=== PATIENT | male | born 1960 | race Caucasian/White ===

== ENCOUNTER 2018-07-21 11:07 | Inpatient (IN) | payer MEDICARE, MEDICAID ==
[~2018-07-21] VITALS: Ht 165.1 cm; Wt 45.8 kg
[2018-07-21] VITALS (39 sets, daily range): BP systolic 58–140; BP diastolic 39–88
[~2018-07-21 11:07] MED LIST: ASPI-1158 PO; CALC667C PO; CITR473S PO; KEPP500 PO; LANTUSUD SUBCUT; MIDO5TAB PO; NEPVIT PO
[2018-07-21] MEDS ORDERED: VANCOMYCIN 1 G PREMIX 200 ML IV ONE (11:45)
[2018-07-21] MEDS ORDERED: PIPERACILLIN/TAZ 3.375G PREMIX 50 ML IV ONE (11:45)
[2018-07-21] MEDS ORDERED: SODIUM CHLORIDE 0.9% 1000ML BAG (SEPSIS BOLUS) IV ONE (11:45)
[2018-07-21 12:00] LABS: BASOPHILS % 0.1 % (0.0-2.0); EOSINOPHILS % 0.1 % (0.0-5.0); HEMATOCRIT. 38.4 % (42.0-52.0); HEMOGLOBIN. 12.7 g/dL (14.0-18.0); LYMPHOCYTES % 8.4 % (20.0-50.0); MEAN CORPUSCULAR HEMOGLOBIN 29.7 pg (28.0-32.0); MEAN CORPUSCULAR VOLUME 89.9 fL (80.0-94.0); MEAN PLATELET VOLUME 8.2 fl (7.4-10.4); MONOCYTES % 7.1 % (2.0-8.0); NEUTROPHILS % 84.3 % (40.0-76.0); PLATELET 121 x1000/uL (130-400); RED BLOOD CELL COUNT 4.27 mill/uL (4.7-6.1); RED CELL DISTRIBUTION WIDTH 13.6 % (11.6-14.6)
[2018-07-21 12:05] LABS: INR 1.2
[2018-07-21 12:16] LABS: CHLORIDE 100 mEq/L (98-107)
[2018-07-21] MEDS ORDERED: LEVETIRACETAM 500MG PREMIX 100 ML IV ONE (13:00)
[2018-07-21 13:10] LABS: BG BASE EXCESS -9.4 mmol/L (-2.0-2.0); BG CARBOXYHEMOGLOBIN 0.5 % (0.5-1.5); BG DEOXYHEMOGLOBIN 5.7 % (0.0-5.0); BG FRACTION INSPIRED OXYGEN 21; BG HCO3 ACT 17.3 mmol/L (22.0-26.0); BG METHEMOGLOBIN 0.2 % (0.0-1.5); BG OXYGEN SATURATION 94.3 % (92.0-98.5); BG OXYHEMOGLOBIN 93.6 % (94.0-97.0); BG PCO2 40.9 mmHg (35.0-45.0); BG PH 7.245 (7.350-7.450); BG SAMPLE SITE LEFT RADIAL; BG TOTAL HEMOGLOBIN 11.4 g/dL (12.0-18.0); BG VENT MODE ROOM AIR
[2018-07-21] MEDS ORDERED: DOPAMINE 400MG/250ML PREMIX 250 ML IV ONE (13:45)
[2018-07-21] MEDS ORDERED: NA PHOS,M-B/NA PHOS,DI-BA ENEMA 118ML PR PRN (14:30)
[2018-07-21] MEDS ORDERED: LORAZEPAM 2MG/ML CPJ IV PRN (14:30)
[2018-07-21] MEDS ORDERED: IPRATROPIUM/ALBUTEROL 0.5-3(2.5)MG/3ML NEB INH PRN (14:30)
[2018-07-21] MEDS ORDERED: PIPERACILLIN/TAZ 3.375G PREMIX 50 ML IV SCH (14:30)
[2018-07-21] MEDS ORDERED: MAGNESIUM/ALUMINUM HYDROXIDE/SIMETHICONE 30ML UDC PO PRN (14:30)
[2018-07-21] MEDS ORDERED: ACETAMINOPHEN 325MG TABLET PO PRN (14:30)
[2018-07-21] MEDS ORDERED: ENOXAPARIN 40MG/0.4ML SYR SUBCUT SCH (14:30)
[2018-07-21] MEDS ORDERED: HYDROMORPHONE HCL/PF 2MG/ML CPJ IV PRN (14:30)
[2018-07-21] MEDS ORDERED: HYDROCODONE/ACETAMINOPHEN 5/325MG TABLET PO PRN (14:30)
[2018-07-21] MEDS ORDERED: DOCUSATE SODIUM 100MG CAPSULE PO PRN (14:30)
[2018-07-21] MEDS ORDERED: ONDANSETRON HCL 4MG/2ML INJ IV PRN (14:30)
[2018-07-21] MEDS ORDERED: GUAIFENESIN 200MG/10ML SUGAR FREE UDC PO PRN (14:30)
[2018-07-21] MEDS ORDERED: CLONIDINE 0.1MG TABLET PO PRN (14:30)
[2018-07-21] MEDS ORDERED: DIPHENHYDRAMINE 50MG/ML VIAL IV PRN (14:30)
[2018-07-21] MEDS: IPRATROPIUM/ALBUTEROL 0.5-3(2.5)MG/3ML NEB HHN SCH ×2 (16:04→20:56)
[2018-07-21] MEDS ORDERED: CITRIC ACID/SODIUM CITRATE SOLN 30ML UDC PO SCH (17:00)
[2018-07-21] MEDS: ENOXAPARIN 30MG/0.3ML SYR SUBCUT SCH (17:38)
[2018-07-21] MEDS: MIDODRINE HCL 5MG TABLET PO SCH (17:38)
[2018-07-21] MEDS: PIPERACILLIN/TAZ 2.25G PREMIX 50 ML IV SCH ×2 (17:38→23:11)
[2018-07-21] MEDS: CALCIUM ACETATE 667MG CAPSULE PO SCH (17:41)
[2018-07-21 18:54] LABS: BG BASE EXCESS -6.2 mmol/L (-2.0-2.0); BG CARBOXYHEMOGLOBIN 0.4 % (0.5-1.5); BG DEOXYHEMOGLOBIN 6.6 % (0.0-5.0); BG FRACTION INSPIRED OXYGEN 21; BG HCO3 ACT 19.9 mmol/L (22.0-26.0); BG METHEMOGLOBIN 0.3 % (0.0-1.5); BG OXYGEN SATURATION 93.4 % (92.0-98.5); BG OXYHEMOGLOBIN 92.7 % (94.0-97.0); BG PCO2 41.9 mmHg (35.0-45.0); BG PH 7.295 (7.350-7.450); BG PO2 87.6 mmHg (75.0-100.0); BG SAMPLE SITE LEFT RADIAL; BG VENT MODE ROOM AIR
[2018-07-21] MEDS ORDERED: PHENYLEPHRINE 20 MG in DEXT 5% WATER 250 ML IV PRN (19:08)
[2018-07-22] VITALS (93 sets, daily range): BP systolic 68–141; BP diastolic 34–88
[2018-07-22] MEDS: PHENYLEPHRINE 20 MG in DEXT 5% WATER 248 ML IV PRN ×2 (02:37→21:12)
[2018-07-22 05:32] LABS: BASOPHILS % 0.3 % (0.0-2.0); EOSINOPHILS % 1.3 % (0.0-5.0); HEMOGLOBIN. 12.3 g/dL (14.0-18.0); LYMPHOCYTES % 12.5 % (20.0-50.0); MEAN CORPUSCULAR HEMOGLOBIN 29.8 pg (28.0-32.0); MEAN CORPUSCULAR VOLUME 89.3 fL (80.0-94.0); MEAN PLATELET VOLUME 7.8 fl (7.4-10.4); MONOCYTES % 10.7 % (2.0-8.0); NEUTROPHILS % 75.2 % (40.0-76.0); PLATELET 121 x1000/uL (130-400); RED BLOOD CELL COUNT 4.14 mill/uL (4.7-6.1); RED CELL DISTRIBUTION WIDTH 13.6 % (11.6-14.6)
[2018-07-22 05:50] LABS: CHLORIDE 100 mEq/L (98-107)
[2018-07-22 06:00] LABS: PHOSPHORUS 7.6 mg/dL (2.5-4.9)
[2018-07-22] MEDS: PIPERACILLIN/TAZ 2.25G PREMIX 50 ML IV SCH ×3 (06:01→22:11)
[2018-07-22] MEDS: CALCIUM ACETATE 667MG CAPSULE PO SCH ×3 (06:01→17:38)
[2018-07-22 06:03] LABS: HDL CHOLESTEROL 48 mg/dL (40-59); LDL CHOLESTEROL 38 mg/dL (5-100)
[2018-07-22] MEDS: IPRATROPIUM/ALBUTEROL 0.5-3(2.5)MG/3ML NEB HHN SCH ×4 (07:47→21:10)
[2018-07-22] MEDS ORDERED: DEXTROSE 50% WATER 50ML SYRINGE IV PRN (08:45)
[2018-07-22] MEDS: INSULIN LISPRO 100 UNITS/ML SUBCUT SCH ×4 (09:00→20:13)
[2018-07-22] MEDS: ASPIRIN 81MG TABLET PO SCH (09:00)
[2018-07-22] MEDS: ENOXAPARIN 30MG/0.3ML SYR SUBCUT SCH (09:00)
[2018-07-22] MEDS: BLOOD SUGAR DIAGNOSTIC STRIP TEST SCH ×4 (09:00→20:13)
[2018-07-22] MEDS: NEOMY SULF/BACITRAC ZN/POLY OINT 28GM TOP SCH ×2 (10:00→20:14)
[2018-07-22] MEDS: FOLIC ACID/VITAMIN B COMP W-C TABLET PO SCH (10:22)
[2018-07-22] MEDS: MIDODRINE HCL 5MG TABLET PO SCH ×3 (10:22→17:38)
[2018-07-22] MEDS: CITRIC ACID/SODIUM CITRATE SOLN 15ML UDC PO SCH ×2 (10:22→17:38)
[2018-07-22] MEDS: LEVETIRACETAM 500MG TABLET PO SCH ×2 (12:14→20:13)
[2018-07-23] VITALS (88 sets, daily range): BP systolic 55–138; BP diastolic 27–90
[2018-07-23 05:34] LABS: BASOPHILS % 0.7 % (0.0-2.0); EOSINOPHILS % 2.5 % (0.0-5.0); HEMATOCRIT. 37.7 % (42.0-52.0); HEMOGLOBIN. 12.5 g/dL (14.0-18.0); LYMPHOCYTES % 14.4 % (20.0-50.0); MEAN CORPUSCULAR HEMOGLOBIN 29.5 pg (28.0-32.0); MEAN CORPUSCULAR VOLUME 88.6 fL (80.0-94.0); MONOCYTES % 10.8 % (2.0-8.0); NEUTROPHILS % 71.6 % (40.0-76.0); PLATELET 121 x1000/uL (130-400); RED BLOOD CELL COUNT 4.25 mill/uL (4.7-6.1); RED CELL DISTRIBUTION WIDTH 13.9 % (11.6-14.6)
[2018-07-23] MEDS: PIPERACILLIN/TAZ 2.25G PREMIX 50 ML IV SCH ×3 (05:50→21:23)
[2018-07-23] MEDS: BLOOD SUGAR DIAGNOSTIC STRIP TEST SCH ×4 (06:09→20:20)
[2018-07-23] MEDS: CALCIUM ACETATE 667MG CAPSULE PO SCH ×3 (06:09→18:30)
[2018-07-23] MEDS: INSULIN LISPRO 100 UNITS/ML SUBCUT SCH ×4 (06:09→20:20)
[2018-07-23 06:26] LABS: PHOSPHORUS 5.1 mg/dL (2.5-4.9)
[2018-07-23] MEDS: IPRATROPIUM/ALBUTEROL 0.5-3(2.5)MG/3ML NEB HHN SCH ×4 (08:17→20:30)
[2018-07-23] MEDS: ENOXAPARIN 30MG/0.3ML SYR SUBCUT SCH (09:47)
[2018-07-23] MEDS: FOLIC ACID/VITAMIN B COMP W-C TABLET PO SCH (09:47)
[2018-07-23] MEDS: CITRIC ACID/SODIUM CITRATE SOLN 15ML UDC PO SCH ×2 (09:47→18:30)
[2018-07-23] MEDS: LEVETIRACETAM 500MG TABLET PO SCH ×2 (09:48→20:20)
[2018-07-23] MEDS: MIDODRINE HCL 5MG TABLET PO SCH ×3 (09:48→18:30)
[2018-07-23] MEDS: LACTOBACILLUS GG CAPSULE PO SCH (09:48)
[2018-07-23] MEDS: ASPIRIN 81MG TABLET PO SCH (09:48)
[2018-07-23] MEDS: NEOMY SULF/BACITRAC ZN/POLY OINT 28GM TOP SCH ×2 (09:49→20:20)
[2018-07-24] VITALS (86 sets, daily range): BP systolic 58–201; BP diastolic 27–118
[2018-07-24 05:06] LABS: EOSINOPHILS % 4.1 % (0.0-5.0); HEMATOCRIT. 34.3 % (42.0-52.0); HEMOGLOBIN. 11.5 g/dL (14.0-18.0); LYMPHOCYTES % 22.5 % (20.0-50.0); MEAN CORPUSCULAR HEMOGLOBIN 29.4 pg (28.0-32.0); MEAN CORPUSCULAR VOLUME 88.1 fL (80.0-94.0); MEAN PLATELET VOLUME 7.6 fl (7.4-10.4); MONOCYTES % 10.1 % (2.0-8.0); NEUTROPHILS % 62.3 % (40.0-76.0); PLATELET 107 x1000/uL (130-400); RED CELL DISTRIBUTION WIDTH 13.7 % (11.6-14.6)
[2018-07-24] MEDS: PIPERACILLIN/TAZ 2.25G PREMIX 50 ML IV SCH ×3 (05:13→21:43)
[2018-07-24] MEDS: BLOOD SUGAR DIAGNOSTIC STRIP TEST SCH (06:17)
[2018-07-24] MEDS: CALCIUM ACETATE 667MG CAPSULE PO SCH ×3 (06:18→17:22)
[2018-07-24] MEDS: INSULIN LISPRO 100 UNITS/ML SUBCUT SCH (06:18)
[2018-07-24] MEDS: IPRATROPIUM/ALBUTEROL 0.5-3(2.5)MG/3ML NEB HHN SCH ×2 (08:04→20:08)
[2018-07-24] MEDS: ENOXAPARIN 30MG/0.3ML SYR SUBCUT SCH (08:46)
[2018-07-24] MEDS: FOLIC ACID/VITAMIN B COMP W-C TABLET PO SCH (08:47)
[2018-07-24] MEDS: CITRIC ACID/SODIUM CITRATE SOLN 15ML UDC PO SCH ×2 (08:47→17:22)
[2018-07-24] MEDS: LEVETIRACETAM 500MG TABLET PO SCH ×2 (08:47→21:44)
[2018-07-24] MEDS: MIDODRINE HCL 5MG TABLET PO SCH ×3 (08:47→17:22)
[2018-07-24] MEDS: ASPIRIN 81MG TABLET PO SCH (08:47)
[2018-07-24] MEDS: LACTOBACILLUS GG CAPSULE PO SCH (08:47)
[2018-07-24] MEDS: NEOMY SULF/BACITRAC ZN/POLY OINT 28GM TOP SCH ×2 (08:48→21:44)
[2018-07-24] MEDS: PHENYLEPHRINE 20 MG in DEXT 5% WATER 248 ML IV PRN (21:07)
[2018-07-25] VITALS (85 sets, daily range): BP systolic 58–144; BP diastolic 24–93
[2018-07-25] MEDS: PIPERACILLIN/TAZ 2.25G PREMIX 50 ML IV SCH ×3 (05:37→21:15)
[2018-07-25] MEDS: CALCIUM ACETATE 667MG CAPSULE PO SCH ×3 (06:07→17:02)
[2018-07-25] MEDS: IPRATROPIUM/ALBUTEROL 0.5-3(2.5)MG/3ML NEB HHN SCH ×4 (08:46→20:30)
[2018-07-25] MEDS: CITRIC ACID/SODIUM CITRATE SOLN 15ML UDC PO SCH ×2 (09:00→17:02)
[2018-07-25] MEDS: ASPIRIN 81MG TABLET PO SCH (10:56)
[2018-07-25] MEDS: LACTOBACILLUS GG CAPSULE PO SCH (10:57)
[2018-07-25] MEDS: FOLIC ACID/VITAMIN B COMP W-C TABLET PO SCH (10:57)
[2018-07-25] MEDS: MIDODRINE HCL 5MG TABLET PO SCH ×3 (10:59→17:16)
[2018-07-25] MEDS: ENOXAPARIN 30MG/0.3ML SYR SUBCUT SCH (10:59)
[2018-07-25] MEDS: LEVETIRACETAM 500MG TABLET PO SCH ×2 (11:11→20:33)
[2018-07-25] MEDS: NEOMY SULF/BACITRAC ZN/POLY OINT 28GM TOP SCH ×2 (11:12→20:34)
[2018-07-25] MEDS: SIMETHICONE 80MG TABLET CHEW PO SCH ×3 (13:25→20:33)
[2018-07-26] VITALS (33 sets, daily range): BP systolic 82–134; BP diastolic 40–79
[2018-07-26 05:49] LABS: BASOPHILS % 0.8 % (0.0-2.0); EOSINOPHILS % 4.8 % (0.0-5.0); MEAN CORPUSCULAR HEMOGLOBIN 29.6 pg (28.0-32.0); MEAN CORPUSCULAR VOLUME 88.7 fL (80.0-94.0); MONOCYTES % 7.8 % (2.0-8.0); NEUTROPHILS % 66.6 % (40.0-76.0); PLATELET 123 x1000/uL (130-400); RED BLOOD CELL COUNT 3.73 mill/uL (4.7-6.1); RED CELL DISTRIBUTION WIDTH 13.9 % (11.6-14.6)
[2018-07-26] MEDS: PIPERACILLIN/TAZ 2.25G PREMIX 50 ML IV SCH ×2 (06:00→13:18)
[2018-07-26 06:04] LABS: PHOSPHORUS 5.4 mg/dL (2.5-4.9)
[2018-07-26] MEDS: CALCIUM ACETATE 667MG CAPSULE PO SCH ×4 (07:00→18:10)
[2018-07-26] MEDS: SIMETHICONE 80MG TABLET CHEW PO SCH (08:04)
[2018-07-26] MEDS: ASPIRIN 81MG TABLET PO SCH (08:46)
[2018-07-26] MEDS: MIDODRINE HCL 5MG TABLET PO SCH ×3 (08:46→17:33)
[2018-07-26] MEDS: CITRIC ACID/SODIUM CITRATE SOLN 15ML UDC PO SCH ×2 (08:46→17:33)
[2018-07-26] MEDS: LOPERAMIDE HCL 2MG CAPSULE PO PRN ×2 (08:46→14:35)
[2018-07-26] MEDS: LACTOBACILLUS GG CAPSULE PO SCH (08:46)
[2018-07-26] MEDS: FOLIC ACID/VITAMIN B COMP W-C TABLET PO SCH (08:46)
[2018-07-26] MEDS: LEVETIRACETAM 500MG TABLET PO SCH ×2 (08:46→21:11)
[2018-07-26] MEDS: ENOXAPARIN 30MG/0.3ML SYR SUBCUT SCH (08:47)
[2018-07-26] MEDS: NEOMY SULF/BACITRAC ZN/POLY OINT 28GM TOP SCH (09:00)
[2018-07-26] MEDS: IPRATROPIUM/ALBUTEROL 0.5-3(2.5)MG/3ML NEB HHN SCH ×3 (09:17→21:05)
[2018-07-26] MEDS ORDERED: SIMETHICONE 80MG TABLET CHEW PO PRN (11:15)
[2018-07-26] MEDS ORDERED: VANCOMYCIN 1 G PREMIX 200 ML IV SCH (14:00)
[2018-07-26] MEDS: CHOLESTYRAMINE/SUCROSE 4G POWDER PACKET PO SCH ×2 (17:34→18:10)
[2018-07-26] MEDS: BLOOD SUGAR DIAGNOSTIC STRIP TEST SCH ×2 (17:49→21:26)
[2018-07-26] MEDS ORDERED: DEXTROSE 50% WATER 50ML SYRINGE IV PRN (17:50)
[2018-07-26] MEDS: INSULIN LISPRO 100 UNITS/ML SUBCUT SCH ×2 (17:59→21:00)
[2018-07-27 00:05] VITALS: BP 107/61
[2018-07-27] MEDS: PIPERACILLIN/TAZ 2.25G PREMIX 50 ML IV SCH ×3 (02:21→13:09)
[2018-07-27 04:00] VITALS: BP 102/58
[2018-07-27] MEDS: NEOMY SULF/BACITRAC ZN/POLY OINT 28GM TOP SCH ×2 (05:47→09:26)
[2018-07-27] MEDS: BLOOD SUGAR DIAGNOSTIC STRIP TEST SCH ×3 (05:48→17:40)
[2018-07-27 08:00] VITALS: BP 100/59
[2018-07-27] MEDS: IPRATROPIUM/ALBUTEROL 0.5-3(2.5)MG/3ML NEB HHN SCH ×3 (08:33→16:14)
[2018-07-27] MEDS: CHOLESTYRAMINE/SUCROSE 4G POWDER PACKET PO SCH ×2 (09:23→18:58)
[2018-07-27] MEDS: ASPIRIN 81MG TABLET PO SCH (09:25)
[2018-07-27] MEDS: LACTOBACILLUS GG CAPSULE PO SCH (09:25)
[2018-07-27] MEDS: LEVETIRACETAM 500MG TABLET PO SCH (09:25)
[2018-07-27] MEDS: FOLIC ACID/VITAMIN B COMP W-C TABLET PO SCH (09:25)
[2018-07-27] MEDS: MIDODRINE HCL 5MG TABLET PO SCH ×3 (09:25→19:00)
[2018-07-27] MEDS: ENOXAPARIN 30MG/0.3ML SYR SUBCUT SCH (09:25)
[2018-07-27] MEDS: CALCIUM ACETATE 667MG CAPSULE PO SCH ×3 (09:26→18:58)
[2018-07-27] MEDS: CITRIC ACID/SODIUM CITRATE SOLN 15ML UDC PO SCH ×2 (09:27→17:00)
[2018-07-27] MEDS: INSULIN LISPRO 100 UNITS/ML SUBCUT SCH ×3 (09:28→19:01)
[2018-07-27] MEDS ORDERED: FLUDROCORTISONE ACETATE 0.1MG TABLET PO SCH (11:00)
[2018-07-27 12:00] VITALS: BP 104/59
[2018-07-27 13:11] LABS: SACCHAROMYCES CEREVISIAE IGG 43.7 Units (0.0-24.9)
[2018-07-27 14:17] LABS: ATYPICAL pANCA <1:20 titer (Neg:<1:20)
[2018-07-27 16:53] VITALS: BP 104/59
[2018-08-20] MEDS ORDERED: VANJ5 PO (08:16)
== END 2018-07-27 19:45 | disposition home health service (06) | DRG 871 ==
LOC: ER 11:11 → EDBEDREQ 13:06 → MICUSO 13:33 → EDBEDREQSVC 13:37 → ENRESERV 14:04 → 7WST 07-26 17:02
PROVIDERS: ADMIT Internal Medicine; ATTEND Internal Medicine
PROC: 5A1D70Z Performance of Urinary Filtration, Intermittent, Less than 6 Hours Per Day (ICD-10-PCS; principal; 2018-07-22)
PROC: 5A1D70Z Performance of Urinary Filtration, Intermittent, Less than 6 Hours Per Day (ICD-10-PCS; 2018-07-24)
PROC: 5A1D70Z Performance of Urinary Filtration, Intermittent, Less than 6 Hours Per Day (ICD-10-PCS; 2018-07-26)
DX: A41.9 Sepsis, unspecified organism (principal); N18.6 End stage renal disease; G93.41 Metabolic encephalopathy; E46 Unspecified protein-calorie malnutrition; I13.2 Hypertensive heart and chronic kidney disease with heart failure and with stage 5 chronic kidney disease, or end stage renal disease; E87.2 Acidosis; Z68.1 Body mass index [BMI] 19.9 or less, adult; R64 Cachexia; L89.159 Pressure ulcer of sacral region, unspecified stage; D63.1 Anemia in chronic kidney disease; D69.6 Thrombocytopenia, unspecified; E11.22 Type 2 diabetes mellitus with diabetic chronic kidney disease; E11.42 Type 2 diabetes mellitus with diabetic polyneuropathy; Z99.2 Dependence on renal dialysis; K59.09 Other constipation; K91.1 Postgastric surgery syndromes; K52.9 Noninfective gastroenteritis and colitis, unspecified; E86.1 Hypovolemia; E11.21 Type 2 diabetes mellitus with diabetic nephropathy; E11.51 Type 2 diabetes mellitus with diabetic peripheral angiopathy without gangrene; E78.5 Hyperlipidemia, unspecified; G51.0 Bell's palsy; E83.39 Other disorders of phosphorus metabolism; G40.909 Epilepsy, unspecified, not intractable, without status epilepticus; G90.8 Other disorders of autonomic nervous system; G89.29 Other chronic pain; S70.311A Abrasion, right thigh, initial encounter; X58.XXXA Exposure to other specified factors, initial encounter; I50.9 Heart failure, unspecified; I95.89 Other hypotension; Z79.4 Long term (current) use of insulin; Z83.3 Family history of diabetes mellitus; Z86.74 Personal history of sudden cardiac arrest; Z87.891 Personal history of nicotine dependence; Z89.611 Acquired absence of right leg above knee; Z91.19 Patient's noncompliance with other medical treatment and regimen; Z79.899 Other long term (current) drug therapy; Z79.82 Long term (current) use of aspirin; Y93.89 Activity, other specified; Y92.098 Other place in other non-institutional residence as the place of occurrence of the external cause; Y99.8 Other external cause status
CPT/HCPCS: 36415; 36600; 71045; 80048; 80061; 80202; 82270; 82375; 82705; 82805; 82962; 83605; 83735; 83880; 84100; 84134; 84145; 84439; 84443; 84484; 86256; 86671; 87015; 87045; 87070; 87075; 87077; 87427; 87449; 87493; 93005; 93306; 94640; 96365; 96375; 97162; 99291; A6261; J1265; J1650; J1815; J1953; J2370; J2543; J3370; J7030; J7050; J7060; J7620

== ENCOUNTER 2018-08-15 21:20 | Inpatient (IN) | payer MEDICARE, MEDICAID ==
[~2018-08-15] VITALS: Ht 167.6 cm; Wt 46.7 kg
[2018-08-15] MEDS ORDERED: SODIUM CHLORIDE 0.9% 1,000 ML IV ONE (21:56)
[2018-08-15] MEDS ORDERED: ONDANSETRON HCL 4MG/2ML INJ IV STA (22:38)
[2018-08-15 22:41] LABS: BASOPHILS % 0.3 % (0.0-2.0); EOSINOPHILS % 0.3 % (0.0-5.0); HEMATOCRIT. 26.1 % (42.0-52.0); HEMOGLOBIN. 8.6 g/dL (14.0-18.0); LYMPHOCYTES % 10.8 % (20.0-50.0); MEAN CORPUSCULAR HEMOGLOBIN 29.9 pg (28.0-32.0); MEAN PLATELET VOLUME 7.1 fl (7.4-10.4); MONOCYTES % 13.7 % (2.0-8.0); NEUTROPHILS % 74.9 % (40.0-76.0); PLATELET 116 x1000/uL (130-400); RED BLOOD CELL COUNT 2.89 mill/uL (4.7-6.1); RED CELL DISTRIBUTION WIDTH 15.3 % (11.6-14.6)
[2018-08-15 22:45] LABS: CHLORIDE 114 mEq/L (98-107)
[2018-08-15] MEDS ORDERED: LEVETIRACETAM 500MG PREMIX 100 ML IV ONE (22:45)
[2018-08-15 23:48] LABS: INR 1.3; PROTHROMBIN TIME 13.3 sec (9.1-11.1)
[2018-08-16] MEDS ORDERED: SODIUM CHLORIDE 0.9% 500 ML IV ONE (01:54)
[2018-08-16] MEDS ORDERED: LEVOFLOXACIN 750MG PREMIX 150 ML IV ONE (02:00)
[2018-08-16] MEDS ORDERED: CEFTRIAXONE 1 G PREMIX 50 ML IV ONE (02:00)
[2018-08-16] MEDS ORDERED: IPRATROPIUM/ALBUTEROL 0.5-3(2.5)MG/3ML NEB INH PRN (09:15)
[2018-08-16] MEDS ORDERED: CLONIDINE 0.1MG TABLET PO PRN (09:15)
[2018-08-16] MEDS ORDERED: GUAIFENESIN 200MG/10ML SUGAR FREE UDC PO PRN (09:15)
[2018-08-16] MEDS ORDERED: DIPHENHYDRAMINE 50MG/ML VIAL IV PRN (09:15)
[2018-08-16] MEDS ORDERED: ACETAMINOPHEN 650MG SUPP PR PRN (09:15)
[2018-08-16] MEDS ORDERED: ONDANSETRON HCL 4MG/2ML INJ IV PRN ×2 (09:15→10:15)
[2018-08-16] MEDS ORDERED: ACETAMINOPHEN 650MG/20.3ML UDC GT PRN (09:15)
[2018-08-16] MEDS ORDERED: DOCUSATE SODIUM 100MG CAPSULE PO PRN (09:15)
[2018-08-16] MEDS: METRONIDAZOLE 500 MG PREMIX 100 ML IV NR ×2 (14:00→18:43)
[2018-08-16 14:37] LABS: BASOPHILS % 0.1 % (0.0-2.0); HEMATOCRIT. 26.2 % (42.0-52.0); HEMOGLOBIN. 8.7 g/dL (14.0-18.0); LYMPHOCYTES % 11.7 % (20.0-50.0); MEAN CORPUSCULAR HEMOGLOBIN 29.9 pg (28.0-32.0); MEAN CORPUSCULAR VOLUME 90.3 fL (80.0-94.0); MEAN PLATELET VOLUME 8.3 fl (7.4-10.4); MONOCYTES % 14.3 % (2.0-8.0); NEUTROPHILS % 73.9 % (40.0-76.0); PLATELET 109 x1000/uL (130-400)
[2018-08-16 14:43] LABS: CHLORIDE 111 mEq/L (98-107)
[2018-08-16] MEDS ORDERED: FAMOTIDINE 20MG/2ML VIAL IV NR (15:30)
[2018-08-16 17:05] LABS: TOTAL IRON BINDING CAPACITY 219 ug/dL (250-450)
[2018-08-16 17:12] LABS: FERRITIN 639 ng/mL (22-322)
[2018-08-16 17:48] LABS: FOLIC ACID (FOLATE) SERUM > 20.00 ng/mL (>5.38)
[2018-08-16 17:56] LABS: VITAMIN B12 SERUM 692 pg/mL (211-911)
[2018-08-16] MEDS: HYDROCODONE/ACETAMINOPHEN 5/325MG TABLET PO PRN (18:24)
[2018-08-16] MEDS ORDERED: NOREPINEPHRINE 4 MG in DEXT 5% WATER 246 ML IV PRN (22:45)
[2018-08-16] MEDS ORDERED: MIDODRINE HCL 5MG TABLET PO SCH (22:45)
[2018-08-16] MEDS ORDERED: MIDODRINE HCL 5MG TABLET PO NR (23:00)
[2018-08-16] MEDS ORDERED: ALBUMIN HUMAN 25GM/100ML (25%) IV ONE (23:30)
[2018-08-17] VITALS (84 sets, daily range): BP systolic 49–153; BP diastolic 28–101
[2018-08-17] MEDS ORDERED: CEFTRIAXONE 1 G PREMIX 50 ML IV SCH (02:00)
[2018-08-17] MEDS: METRONIDAZOLE 500 MG PREMIX 100 ML IV SCH ×3 (02:28→22:01)
[2018-08-17] MEDS ORDERED: NOREPINEPHRINE 16 MG in DEXT 5% WATER 234 ML IV PRN (03:00)
[2018-08-17 05:51] LABS: HEMATOCRIT. 30.9 % (42.0-52.0); HEMOGLOBIN. 10.1 g/dL (14.0-18.0); MEAN CORPUSCULAR VOLUME 91.9 fL (80.0-94.0); MEAN PLATELET VOLUME 8.2 fl (7.4-10.4); PLATELET 116 x1000/uL (130-400); RED BLOOD CELL COUNT 3.36 mill/uL (4.7-6.1); RED CELL DISTRIBUTION WIDTH 15.8 % (11.6-14.6)
[2018-08-17] MEDS: SODIUM CHLORIDE 0.9% INJ 3ML FLUSH IVF SCH ×3 (06:00→22:02)
[2018-08-17 06:07] LABS: CHLORIDE 105 mEq/L (98-107)
[2018-08-17 06:11] LABS: INR 1.6; PARTIAL THROMBOPLASTIN TIME 40.7 sec (23.4-31.0); PROTHROMBIN TIME 15.6 sec (9.1-11.1)
[2018-08-17 06:15] LABS: PHOSPHORUS 7.7 mg/dL (2.5-4.9)
[2018-08-17 06:16] LABS: LDL CHOLESTEROL 27 mg/dL (5-100)
[2018-08-17 06:18] LABS: HDL CHOLESTEROL 24 mg/dL (40-59)
[2018-08-17] MEDS ORDERED: PHENYLEPHRINE 10 MG in DEXT 5% WATER 249 ML IV PRN (08:15)
[2018-08-17] MEDS ORDERED: DEXTROSE 50% WATER 50ML SYRINGE IV PRN (08:15)
[2018-08-17] MEDS: INSULIN LISPRO 100 UNITS/ML SUBCUT SCH ×4 (08:20→21:57)
[2018-08-17 08:43] LABS: PLATELET ESTIMATE SLIGHTLY DECREASED
[2018-08-17] MEDS ORDERED: CITRIC ACID/SODIUM CITRATE SOLN 30ML UDC PO SCH ×2 (09:00→17:00)
[2018-08-17] MEDS: CALCIUM ACETATE 667MG CAPSULE PO SCH ×2 (09:04→12:10)
[2018-08-17] MEDS: BLOOD SUGAR DIAGNOSTIC STRIP TEST SCH ×4 (09:04→21:57)
[2018-08-17] MEDS: LACTOBACILLUS GG CAPSULE PO SCH (09:04)
[2018-08-17] MEDS: HYDROCODONE/ACETAMINOPHEN 5/325MG TABLET PO PRN ×2 (09:05→18:39)
[2018-08-17] MEDS: FOLIC ACID/VITAMIN B COMP W-C TABLET PO SCH (09:05)
[2018-08-17] MEDS: MIDODRINE HCL 5MG TABLET PO SCH ×3 (09:05→17:39)
[2018-08-17] MEDS: FAMOTIDINE 20MG/2ML VIAL IV SCH (09:06)
[2018-08-17] MEDS ORDERED: LIDOCAINE HCL 1% 20ML VIAL (Pyxis) INJ ONE (09:06)
[2018-08-17] MEDS: PHENYLEPHRINE 40 MG in DEXT 5% WATER 246 ML IV PRN ×2 (10:42→14:21)
[2018-08-17] MEDS ORDERED: HEPARIN 100 UNITS/1 ML VIAL IVF PRN (11:00)
[2018-08-17 13:56] LABS: BG BASE EXCESS -16.5 mmol/L (-2.0-2.0); BG CARBOXYHEMOGLOBIN 0.3 % (0.5-1.5); BG DEOXYHEMOGLOBIN 4.1 % (0.0-5.0); BG FRACTION INSPIRED OXYGEN 21; BG HCO3 ACT 10.6 mmol/L (22.0-26.0); BG METHEMOGLOBIN 0.3 % (0.0-1.5); BG OXYGEN SATURATION 95.9 % (92.0-98.5); BG OXYHEMOGLOBIN 95.3 % (94.0-97.0); BG PCO2 29.7 mmHg (35.0-45.0); BG PH 7.172 (7.350-7.450); BG PO2 113.9 mmHg (75.0-100.0); BG SAMPLE SITE LEFT BRACHIAL; BG VENT MODE ROOM AIR
[2018-08-17] MEDS: SODIUM BICARBONATE 150 MEQ in DEXTROSE 5% WATER 1,000 ML IV SCH (14:59)
[2018-08-17] MEDS ORDERED: CALCIUM ACETATE 667MG CAPSULE PO SCH (18:20)
[2018-08-17] MEDS: LEVETIRACETAM 500MG TABLET PO SCH (21:45)
[2018-08-17] MEDS: CEFTRIAXONE 1 G PREMIX 50 ML IV SCH (21:58)
[2018-08-17] MEDS ORDERED: MIDODRINE HCL 5MG TABLET PO SCH (23:00)
[2018-08-18] VITALS (81 sets, daily range): BP systolic 79–164; BP diastolic 31–134
[2018-08-18] MEDS: PHENYLEPHRINE 40 MG in DEXT 5% WATER 246 ML IV PRN ×2 (02:18→10:20)
[2018-08-18] MEDS: SODIUM BICARBONATE 150 MEQ in DEXTROSE 5% WATER 1,000 ML IV SCH (03:02)
[2018-08-18] MEDS: SODIUM CHLORIDE 0.9% INJ 3ML FLUSH IVF SCH ×3 (06:00→21:49)
[2018-08-18 06:35] LABS: BASOPHILS % 0.2 % (0.0-2.0); EOSINOPHILS % 0.6 % (0.0-5.0); HEMATOCRIT. 30.6 % (42.0-52.0); HEMOGLOBIN. 10.2 g/dL (14.0-18.0); LYMPHOCYTES % 10.1 % (20.0-50.0); MEAN CORPUSCULAR HEMOGLOBIN 29.5 pg (28.0-32.0); MEAN CORPUSCULAR VOLUME 88.8 fL (80.0-94.0); MEAN PLATELET VOLUME 8.4 fl (7.4-10.4); MONOCYTES % 9.7 % (2.0-8.0); NEUTROPHILS % 79.4 % (40.0-76.0); PLATELET 141 x1000/uL (130-400); RED BLOOD CELL COUNT 3.45 mill/uL (4.7-6.1); RED CELL DISTRIBUTION WIDTH 15.4 % (11.6-14.6)
[2018-08-18 06:46] LABS: CHLORIDE 90 mEq/L (98-107)
[2018-08-18 06:51] LABS: PHOSPHORUS 3.9 mg/dL (2.5-4.9)
[2018-08-18] MEDS: BLOOD SUGAR DIAGNOSTIC STRIP TEST SCH ×4 (07:50→21:49)
[2018-08-18] MEDS: INSULIN LISPRO 100 UNITS/ML SUBCUT SCH ×4 (08:20→21:49)
[2018-08-18] MEDS ORDERED: LEVETIRACETAM 500MG TABLET PO SCH (09:00)
[2018-08-18] MEDS ORDERED: FOLIC ACID/VITAMIN B COMP W-C TABLET PO SCH (09:00)
[2018-08-18] MEDS ORDERED: CITRIC ACID/SODIUM CITRATE SOLN 15ML UDC PO SCH (09:00)
[2018-08-18] MEDS: INSULIN GLARGINE UD 100 UNITS/ML SYR SUBCUT SCH (10:00)
[2018-08-18] MEDS: CITRIC ACID/SODIUM CITRATE SOLN 30ML UDC PO SCH ×2 (10:20→16:47)
[2018-08-18] MEDS: LEVETIRACETAM 500MG TABLET PO SCH ×2 (10:21→21:48)
[2018-08-18] MEDS: LACTOBACILLUS GG CAPSULE PO SCH (10:21)
[2018-08-18] MEDS: FAMOTIDINE 20MG/2ML VIAL IV SCH (10:21)
[2018-08-18] MEDS: FOLIC ACID/VITAMIN B COMP W-C TABLET PO SCH (10:21)
[2018-08-18] MEDS: MIDODRINE HCL 5MG TABLET PO SCH ×4 (10:21→21:49)
[2018-08-18] MEDS: CALCIUM ACETATE 667MG CAPSULE PO SCH ×3 (10:21→18:52)
[2018-08-18] MEDS: METRONIDAZOLE 500 MG PREMIX 100 ML IV SCH (10:22)
[2018-08-18] MEDS: DICYCLOMINE HCL 10MG CAPSULE PO SCH ×2 (13:33→17:50)
[2018-08-18] MEDS: HYDROCODONE/ACETAMINOPHEN 5/325MG TABLET PO PRN (17:29)
[2018-08-18] MEDS: VANCOMYCIN HCL 1000 MG/20 ML ORAL PO SCH (18:52)
[2018-08-18] MEDS ORDERED: EPOETIN ALFA 4000UNITS/ML VIAL SUBCUT SCH (21:00)
[2018-08-18] MEDS: CEFTRIAXONE 1 G PREMIX 50 ML IV SCH (21:48)
[2018-08-19] VITALS (65 sets, daily range): BP systolic 78–139; BP diastolic 33–112
[2018-08-19] MEDS: VANCOMYCIN HCL 1000 MG/20 ML ORAL PO SCH ×4 (00:56→18:14)
[2018-08-19 04:14] LABS: OVA & PARASITE EXAM Final report (.)
[2018-08-19] MEDS: SODIUM CHLORIDE 0.9% INJ 3ML FLUSH IVF SCH ×3 (06:22→21:24)
[2018-08-19] MEDS: MIDODRINE HCL 5MG TABLET PO SCH ×3 (06:22→21:24)
[2018-08-19] MEDS: BLOOD SUGAR DIAGNOSTIC STRIP TEST SCH ×4 (07:50→21:00)
[2018-08-19] MEDS: INSULIN LISPRO 100 UNITS/ML SUBCUT SCH ×4 (08:20→21:00)
[2018-08-19] MEDS: FOLIC ACID/VITAMIN B COMP W-C TABLET PO SCH (11:15)
[2018-08-19] MEDS: LEVETIRACETAM 500MG TABLET PO SCH ×2 (11:15→21:24)
[2018-08-19] MEDS: LACTOBACILLUS GG CAPSULE PO SCH (11:15)
[2018-08-19] MEDS: CALCIUM ACETATE 667MG CAPSULE PO SCH ×3 (11:15→18:50)
[2018-08-19] MEDS: FAMOTIDINE 20MG/2ML VIAL IV SCH (11:15)
[2018-08-19] MEDS: CITRIC ACID/SODIUM CITRATE SOLN 30ML UDC PO SCH ×2 (11:16→17:00)
[2018-08-19] MEDS: HYDROCODONE/ACETAMINOPHEN 5/325MG TABLET PO PRN ×2 (11:56→21:34)
[2018-08-19] MEDS: INSULIN GLARGINE UD 100 UNITS/ML SYR SUBCUT SCH (13:04)
[2018-08-19 13:07] LABS: ANTI-MYELOPEROXIDASE AB < 9.0 U/mL (0.0-9.0); ANTI-PROTEINASE 3 ABS < 3.5 U/mL (0.0-3.5)
[2018-08-19 14:20] LABS: ATYPICAL P-ANCA <1:20 titer (Neg:<1:20); CYTOPLASMIC C-ANCA <1:20 titer (Neg:<1:20); PERINUCLEAR P-ANCA <1:20 titer (Neg:<1:20)
[2018-08-19] MEDS: CEFTRIAXONE 1 G PREMIX 50 ML IV SCH (21:24)
[2018-08-20] VITALS (7 sets, daily range): BP systolic 74–136; BP diastolic 35–88
[2018-08-20] MEDS: VANCOMYCIN HCL 1000 MG/20 ML ORAL PO SCH ×4 (00:47→16:58)
[2018-08-20] MEDS: SODIUM CHLORIDE 0.9% INJ 3ML FLUSH IVF SCH ×3 (06:34→22:01)
[2018-08-20] MEDS: MIDODRINE HCL 5MG TABLET PO SCH ×3 (06:34→21:25)
[2018-08-20] MEDS: BLOOD SUGAR DIAGNOSTIC STRIP TEST SCH ×4 (06:35→21:26)
[2018-08-20 06:45] LABS: BASOPHILS % 0.6 % (0.0-2.0); EOSINOPHILS % 2.6 % (0.0-5.0); HEMATOCRIT. 29.6 % (42.0-52.0); HEMOGLOBIN. 9.9 g/dL (14.0-18.0); LYMPHOCYTES % 15.4 % (20.0-50.0); MEAN CORPUSCULAR HEMOGLOBIN 29.8 pg (28.0-32.0); MEAN PLATELET VOLUME 7.8 fl (7.4-10.4); MONOCYTES % 8.9 % (2.0-8.0); NEUTROPHILS % 72.5 % (40.0-76.0); PLATELET 135 x1000/uL (130-400); RED BLOOD CELL COUNT 3.33 mill/uL (4.7-6.1); RED CELL DISTRIBUTION WIDTH 15.4 % (11.6-14.6)
[2018-08-20] MEDS: INSULIN LISPRO 100 UNITS/ML SUBCUT SCH ×4 (06:49→21:00)
[2018-08-20 07:02] LABS: CHLORIDE 96 mEq/L (98-107)
[2018-08-20 07:07] LABS: PHOSPHORUS 4.4 mg/dL (2.5-4.9)
[2018-08-20] MEDS ORDERED: VANJ5 PO (08:16)
[2018-08-20] MEDS: FAMOTIDINE 20MG/2ML VIAL IV SCH (09:29)
[2018-08-20] MEDS: LACTOBACILLUS GG CAPSULE PO SCH (09:29)
[2018-08-20] MEDS: FOLIC ACID/VITAMIN B COMP W-C TABLET PO SCH (09:30)
[2018-08-20] MEDS: LEVETIRACETAM 500MG TABLET PO SCH ×2 (09:30→21:26)
[2018-08-20] MEDS: CALCIUM ACETATE 667MG CAPSULE PO SCH ×3 (09:30→16:59)
[2018-08-20] MEDS ORDERED: HYDROCODONE/ACETAMINOPHEN 5/325MG TABLET PO PRN (13:15)
[2018-08-20] MEDS ORDERED: CLONIDINE 0.1MG TABLET PO PRN (15:15)
[2018-08-20] MEDS ORDERED: FAMOTIDINE 20MG TABLET PO SCH (21:00)
[2018-08-20] MEDS: CEFTRIAXONE 1 G PREMIX 50 ML IV SCH (21:26)
[2018-08-20] MEDS: ACETAMINOPHEN 325MG TABLET PO PRN (22:18)
[2018-08-21] VITALS: BP 111/61
[2018-08-21] MEDS: VANCOMYCIN HCL 1000 MG/20 ML ORAL PO SCH ×4 (00:27→17:40)
[2018-08-21 04:00] VITALS: BP 113/66
[2018-08-21] MEDS: MIDODRINE HCL 5MG TABLET PO SCH ×2 (05:08→15:18)
[2018-08-21] MEDS: SODIUM CHLORIDE 0.9% INJ 3ML FLUSH IVF SCH ×2 (05:08→15:18)
[2018-08-21] MEDS: BLOOD SUGAR DIAGNOSTIC STRIP TEST SCH ×3 (05:09→16:53)
[2018-08-21] MEDS: INSULIN LISPRO 100 UNITS/ML SUBCUT SCH ×3 (07:50→16:54)
[2018-08-21 08:00] VITALS: BP 128/71
[2018-08-21] MEDS: LEVETIRACETAM 500MG TABLET PO SCH (08:12)
[2018-08-21] MEDS: FOLIC ACID/VITAMIN B COMP W-C TABLET PO SCH (08:12)
[2018-08-21] MEDS: LACTOBACILLUS GG CAPSULE PO SCH (08:12)
[2018-08-21] MEDS: CALCIUM ACETATE 667MG CAPSULE PO SCH ×3 (08:12→16:56)
[2018-08-21] MEDS: ACETAMINOPHEN 325MG TABLET PO PRN (10:30)
[2018-08-21 12:00] VITALS: BP 121/62
[2018-08-21 12:58] VITALS: BP 121/62
[2018-08-21 16:00] VITALS: BP 126/77
== END 2018-08-21 19:58 | DRG 100 ==
LOC: ER 21:20 → 8WST 08-16 02:19 → EDBEDREQTM 08-16 02:24 → EDBEDREQ 08-16 02:24 → ENRESERV 08-16 20:47 → 3WST 08-16 23:55 → CVICU 08-17 00:14 → 6EST 08-20 01:15
PROVIDERS: ADMIT Family Medicine; ATTEND Family Medicine
PROC: 02HV33Z Insertion of Infusion Device into Superior Vena Cava, Percutaneous Approach (ICD-10-PCS; principal; 2018-08-17)
PROC: B548ZZA Ultrasonography of Superior Vena Cava, Guidance (ICD-10-PCS; 2018-08-17)
PROC: 5A1D70Z Performance of Urinary Filtration, Intermittent, Less than 6 Hours Per Day (ICD-10-PCS; 2018-08-17)
PROC: 5A1D70Z Performance of Urinary Filtration, Intermittent, Less than 6 Hours Per Day (ICD-10-PCS; 2018-08-20)
DX: G40.909 Epilepsy, unspecified, not intractable, without status epilepticus (principal); N18.6 End stage renal disease; E43 Unspecified severe protein-calorie malnutrition; A04.72 Enterocolitis due to Clostridium difficile, not specified as recurrent; E87.2 Acidosis; K50.90 Crohn's disease, unspecified, without complications; Z68.1 Body mass index [BMI] 19.9 or less, adult; E11.21 Type 2 diabetes mellitus with diabetic nephropathy; E11.43 Type 2 diabetes mellitus with diabetic autonomic (poly)neuropathy; E11.51 Type 2 diabetes mellitus with diabetic peripheral angiopathy without gangrene; D63.1 Anemia in chronic kidney disease; E87.6 Hypokalemia; K52.9 Noninfective gastroenteritis and colitis, unspecified; I95.89 Other hypotension; F10.10 Alcohol abuse, uncomplicated; G51.0 Bell's palsy; E11.22 Type 2 diabetes mellitus with diabetic chronic kidney disease; E83.39 Other disorders of phosphorus metabolism; Z83.3 Family history of diabetes mellitus; Z86.74 Personal history of sudden cardiac arrest; Z99.2 Dependence on renal dialysis; Z87.891 Personal history of nicotine dependence; Z89.429 Acquired absence of other toe(s), unspecified side; Z91.19 Patient's noncompliance with other medical treatment and regimen; Z79.82 Long term (current) use of aspirin; Z79.899 Other long term (current) drug therapy
CPT/HCPCS: 36415; 36569; 36600; 71045; 74176; 76937; 80061; 82270; 82375; 82607; 82705; 82728; 82746; 82805; 82962; 83036; 83520; 83540; 83550; 83605; 83735; 84100; 84145; 86256; 87015; 87045; 87177; 87209; 87427; 87449; 87493; 89055; 93005; 96361; 96365; 96367; 96368; 97162; 97530; 99291; A6261; C1725; J0696; J0885; J1642; J1815; J1953; J1956; J2370; J2405; J3370; J3490; J7030; J7040; J7050; J7060; J7070; P9047

== ENCOUNTER 2018-11-24 12:06 | Inpatient (IN) | payer MEDICARE, MEDICAID ==
[~2018-11-24] VITALS: Ht 165.1 cm; Wt 48.1 kg
[~2018-11-24 12:06] MED LIST changes: +VANJ5 PO
[2018-11-24] MEDS ORDERED: PIPERACILLIN/TAZ 3.375G PREMIX 50 ML IV ONE (12:30)
[2018-11-24] MEDS ORDERED: VANCOMYCIN 1 G PREMIX 200 ML IV ONE (12:30)
[2018-11-24] MEDS ORDERED: SODIUM CHLORIDE 0.9% 1000ML BAG (SEPSIS BOLUS) IV ONE (12:30)
[2018-11-24 12:45] LABS: BASOPHILS % 1.2 % (0.0-2.0); EOSINOPHILS % 3.2 % (0.0-5.0); HEMATOCRIT. 34.4 % (42.0-52.0); HEMOGLOBIN. 11.3 g/dL (14.0-18.0); LYMPHOCYTES % 21.2 % (20.0-50.0); MEAN CORPUSCULAR HEMOGLOBIN 29.4 pg (28.0-32.0); MEAN CORPUSCULAR VOLUME 89.7 fL (80.0-94.0); MEAN PLATELET VOLUME 8.3 fl (7.4-10.4); MONOCYTES % 11.2 % (2.0-8.0); NEUTROPHILS % 63.2 % (40.0-76.0); PLATELET 154 x1000/uL (130-400); RED BLOOD CELL COUNT 3.83 mill/uL (4.7-6.1); RED CELL DISTRIBUTION WIDTH 13.6 % (11.6-14.6)
[2018-11-24 12:48] LABS: CHLORIDE 96 mEq/L (98-107)
[2018-11-24 12:49] LABS: INR 1.1; PROTHROMBIN TIME 11.5 sec (9.6-11.0)
[2018-11-24] MEDS ORDERED: OCTREOTIDE 1,000 MCG in SODIUM CHLORIDE 0.9% 100 ML IV NR (14:15)
[2018-11-24] MEDS ORDERED: PANTOPRAZOLE SODIUM 40 MG/VIAL IV ONE (14:15)
[2018-11-24] MEDS ORDERED: OCTREOTIDE 1,000 MCG in SODIUM CHLORIDE 0.9% 100 ML IV ONE (14:15)
[2018-11-24] MEDS ORDERED: SODIUM CHLORIDE 0.9% 1,000 ML IV SCH (15:14)
[2018-11-24] MEDS ORDERED: MAGNESIUM/ALUMINUM HYDROXIDE/SIMETHICONE 30ML UDC PO PRN (15:15)
[2018-11-24] MEDS ORDERED: ONDANSETRON HCL 4MG/2ML INJ IV PRN (15:15)
[2018-11-24] MEDS ORDERED: DEXTROSE 50% WATER 50ML SYRINGE IV PRN ×2 (15:15)
[2018-11-24] MEDS ORDERED: ACETAMINOPHEN 325MG TABLET PO PRN (15:15)
[2018-11-24] MEDS ORDERED: DIPHENHYDRAMINE 50MG/ML VIAL IV PRN (15:15)
[2018-11-24] MEDS ORDERED: HYDROCODONE/ACETAMINOPHEN 5/325MG TABLET PO PRN (15:15)
[2018-11-24 16:16] LABS: HEPATITIS B SURFACE ANTIGEN NEGATIVE
[2018-11-24 16:46] LABS: HEPATITIS A AB IGM NEGATIVE (NEGATIVE)
[2018-11-24] MEDS ORDERED: DEXT 5%/0.45% NACL 500ML 500 ML IV ONE (19:30)
[2018-11-24] MEDS ORDERED: LEVETIRACETAM 500MG PREMIX 100 ML IV NR (21:00)
[2018-11-24] MEDS: INSULIN LISPRO 100 UNITS/ML SUBCUT SCH ×2 (21:00→21:01)
[2018-11-24] MEDS: BLOOD SUGAR DIAGNOSTIC STRIP TEST SCH ×2 (21:00→21:01)
[2018-11-24 22:30] VITALS: BP 105/70
[2018-11-24 23:29] VITALS: BP 105/70
[2018-11-25] VITALS (12 sets, daily range): BP systolic 89–147; BP diastolic 46–92
[2018-11-25] MEDS ORDERED: INSULIN GLARGINE UD 100 UNITS/ML SYR SUBCUT SCH
[2018-11-25] MEDS: MIDODRINE HCL 5MG TABLET PO SCH ×6 (00:04→17:14)
[2018-11-25] MEDS: PANTOPRAZOLE SODIUM 40 MG/VIAL IV SCH ×3 (00:06→21:00)
[2018-11-25 07:00] LABS: BASOPHILS % 1.5 % (0.0-2.0); EOSINOPHILS % 5.7 % (0.0-5.0); HEMATOCRIT. 35.2 % (42.0-52.0); HEMOGLOBIN. 11.5 g/dL (14.0-18.0); LYMPHOCYTES % 26.7 % (20.0-50.0); MEAN CORPUSCULAR HEMOGLOBIN 29.4 pg (28.0-32.0); MEAN CORPUSCULAR VOLUME 89.7 fL (80.0-94.0); MEAN PLATELET VOLUME 8.5 fl (7.4-10.4); MONOCYTES % 12.4 % (2.0-8.0); NEUTROPHILS % 53.7 % (40.0-76.0); PLATELET 134 x1000/uL (130-400); RED BLOOD CELL COUNT 3.92 mill/uL (4.7-6.1); RED CELL DISTRIBUTION WIDTH 13.5 % (11.6-14.6)
[2018-11-25] MEDS: INSULIN LISPRO 100 UNITS/ML SUBCUT SCH ×4 (08:00→21:00)
[2018-11-25] MEDS: BLOOD SUGAR DIAGNOSTIC STRIP TEST SCH ×4 (08:14→21:00)
[2018-11-25] MEDS ORDERED: LEVETIRACETAM 500 MG in SODIUM CHLORIDE 0.9% 100 ML IV SCH (09:00)
[2018-11-25] MEDS: CALCIUM ACETATE 667MG CAPSULE PO SCH ×2 (13:18→17:14)
[2018-11-25] MEDS: DEXT 5%/0.9% NACL 1,000 ML IV SCH (13:30)
[2018-11-25] MEDS ORDERED: SORBITOL 70% SOLN 30ML PO NR ×2 (16:00→20:00)
[2018-11-25] MEDS: LEVETIRACETAM 500 MG in SODIUM CHLORIDE 0.9% 100 ML IV SCH (21:00)
[2018-11-26] VITALS (8 sets, daily range): BP systolic 83–130; BP diastolic 48–77
[2018-11-26 06:55] LABS: BASOPHILS % 1.2 % (0.0-2.0); EOSINOPHILS % 3.4 % (0.0-5.0); HEMATOCRIT. 36.3 % (42.0-52.0); HEMOGLOBIN. 11.9 g/dL (14.0-18.0); LYMPHOCYTES % 17.8 % (20.0-50.0); MEAN CORPUSCULAR HEMOGLOBIN 29.4 pg (28.0-32.0); MEAN CORPUSCULAR VOLUME 89.7 fL (80.0-94.0); MEAN PLATELET VOLUME 8.6 fl (7.4-10.4); MONOCYTES % 9.2 % (2.0-8.0); NEUTROPHILS % 68.4 % (40.0-76.0); PLATELET 143 x1000/uL (130-400); RED BLOOD CELL COUNT 4.05 mill/uL (4.7-6.1); RED CELL DISTRIBUTION WIDTH 13.7 % (11.6-14.6)
[2018-11-26 07:24] LABS: PHOSPHORUS 8.4 mg/dL (2.5-4.9)
[2018-11-26] MEDS: BLOOD SUGAR DIAGNOSTIC STRIP TEST SCH ×4 (07:30→21:56)
[2018-11-26] MEDS: INSULIN LISPRO 100 UNITS/ML SUBCUT SCH ×4 (08:00→21:56)
[2018-11-26] MEDS: PANTOPRAZOLE SODIUM 40 MG/VIAL IV SCH ×2 (11:45→21:32)
[2018-11-26] MEDS: FOLIC ACID/VITAMIN B COMP W-C TABLET PO SCH (11:45)
[2018-11-26] MEDS: MIDODRINE HCL 5MG TABLET PO SCH ×3 (11:46→19:03)
[2018-11-26] MEDS: CALCIUM ACETATE 667MG CAPSULE PO SCH ×2 (11:46→19:09)
[2018-11-26] MEDS: DEXT 5%/0.9% NACL 1,000 ML IV SCH (11:47)
[2018-11-26] MEDS: LEVETIRACETAM 500 MG in SODIUM CHLORIDE 0.9% 100 ML IV SCH ×2 (11:47→21:32)
[2018-11-26] MEDS ORDERED: FENTANYL CITRATE/PF 50MCG/ML 2ML VIAL ONE (16:12)
[2018-11-26] MEDS ORDERED: MIDAZOLAM HCL 5 MG/5 ML VIAL ONE (16:12)
[2018-11-26] MEDS ORDERED: MIDAZOLAM HCL 2 MG/2 ML VIAL IV PRN (16:15)
[2018-11-26] MEDS ORDERED: FENTANYL CITRATE/PF 50MCG/ML 2ML VIAL IV PRN (16:16)
[2018-11-27] VITALS (7 sets, daily range): BP systolic 92–120; BP diastolic 51–71
[2018-11-27 07:37] LABS: BASOPHILS % 1.1 % (0.0-2.0); EOSINOPHILS % 6.5 % (0.0-5.0); HEMATOCRIT. 35.1 % (42.0-52.0); HEMOGLOBIN. 11.6 g/dL (14.0-18.0); LYMPHOCYTES % 19.8 % (20.0-50.0); MEAN CORPUSCULAR HEMOGLOBIN 29.6 pg (28.0-32.0); MEAN CORPUSCULAR VOLUME 89.4 fL (80.0-94.0); MEAN PLATELET VOLUME 7.6 fl (7.4-10.4); MONOCYTES % 9.1 % (2.0-8.0); NEUTROPHILS % 63.5 % (40.0-76.0); PLATELET 126 x1000/uL (130-400); RED BLOOD CELL COUNT 3.92 mill/uL (4.7-6.1); RED CELL DISTRIBUTION WIDTH 13.6 % (11.6-14.6)
[2018-11-27] MEDS: INSULIN LISPRO 100 UNITS/ML SUBCUT SCH ×3 (07:50→17:37)
[2018-11-27] MEDS: BLOOD SUGAR DIAGNOSTIC STRIP TEST SCH ×3 (07:50→17:37)
[2018-11-27 08:05] LABS: PHOSPHORUS 5.6 mg/dL (2.5-4.9)
[2018-11-27] MEDS: FOLIC ACID/VITAMIN B COMP W-C TABLET PO SCH (08:45)
[2018-11-27] MEDS: MIDODRINE HCL 5MG TABLET PO SCH ×3 (08:45→17:37)
[2018-11-27] MEDS: CALCIUM ACETATE 667MG CAPSULE PO SCH ×3 (08:46→17:36)
[2018-11-27] MEDS: LEVETIRACETAM 500 MG in SODIUM CHLORIDE 0.9% 100 ML IV SCH (08:46)
[2018-11-27] MEDS: PANTOPRAZOLE SODIUM 40 MG/VIAL IV SCH (08:46)
[2018-11-27] MEDS ORDERED: DIATR MEGLU/DIATRIZOATE SOLN 120ML ONE (12:39)
== END 2018-11-27 17:56 | disposition home or self-care (01) | DRG 385 ==
LOC: ER 12:06 → EDBEDREQ 12:40 → EDBEDREQTM 12:40 → EDBEDREQSVC 12:40 → 5EST 13:32 → EDBEDREQ 13:39 → ENRESERV 16:19 → CANRESERV 16:19 → EDBEDREQSVC 19:55 → EDBEDREQTM 19:55 → ENRESERV 21:17 → 5EST 11-25 08:45
PROVIDERS: ADMIT Family Medicine Adult Medicine; ATTEND Family Medicine Adult Medicine
PROC: 02HV33Z Insertion of Infusion Device into Superior Vena Cava, Percutaneous Approach (ICD-10-PCS; 2018-11-24)
PROC: B548ZZA Ultrasonography of Superior Vena Cava, Guidance (ICD-10-PCS; 2018-11-24)
PROC: 0DBE8ZX Excision of Large Intestine, Via Natural or Artificial Opening Endoscopic, Diagnostic (ICD-10-PCS; principal; 2018-11-26)
PROC: 5A1D70Z Performance of Urinary Filtration, Intermittent, Less than 6 Hours Per Day (ICD-10-PCS; 2018-11-26)
DX: K51.90 Ulcerative colitis, unspecified, without complications (principal); N18.6 End stage renal disease; E44.1 Mild protein-calorie malnutrition; K55.9 Vascular disorder of intestine, unspecified; E87.2 Acidosis; K56.699 Other intestinal obstruction unspecified as to partial versus complete obstruction; N25.81 Secondary hyperparathyroidism of renal origin; I12.0 Hypertensive chronic kidney disease with stage 5 chronic kidney disease or end stage renal disease; Z68.1 Body mass index [BMI] 19.9 or less, adult; K64.8 Other hemorrhoids; D63.8 Anemia in other chronic diseases classified elsewhere; E11.43 Type 2 diabetes mellitus with diabetic autonomic (poly)neuropathy; E11.22 Type 2 diabetes mellitus with diabetic chronic kidney disease; E87.5 Hyperkalemia; I95.89 Other hypotension; G51.0 Bell's palsy; B18.2 Chronic viral hepatitis C; E11.51 Type 2 diabetes mellitus with diabetic peripheral angiopathy without gangrene; G40.909 Epilepsy, unspecified, not intractable, without status epilepticus; Z79.4 Long term (current) use of insulin; Z82.49 Family history of ischemic heart disease and other diseases of the circulatory system; Z83.3 Family history of diabetes mellitus; Z86.19 Personal history of other infectious and parasitic diseases; Z89.511 Acquired absence of right leg below knee; Z89.611 Acquired absence of right leg above knee; Z99.2 Dependence on renal dialysis
CPT/HCPCS: 36415; 36569; 71045; 74176; 74270; 76937; 80048; 80061; 82270; 82962; 83036; 83605; 83735; 83880; 84100; 84145; 84443; 84484; 86705; 86709; 86803; 86850; 86900; 87340; 88305; 93005; 93306; 93970; 96361; 96365; 96367; 96375; 99291; C1725; C9113; J1815; J1953; J2250; J2354; J2543; J3010; J3370; J7030; J7042; J7050; J7070; Q9963; A4315

== ENCOUNTER 2019-06-01 01:27 | Inpatient (IN) | payer MEDICARE, MEDICAID ==
[2019-06-01] VITALS (59 sets, daily range): BP systolic 72–157; BP diastolic 33–97
[~2019-06-01] VITALS: Ht 165.1 cm; Wt 49.9 kg
[~2019-06-01 01:27] MED LIST changes: -VANJ5 PO
[2019-06-01] MEDS ORDERED: ONDANSETRON HCL 4MG/2ML INJ IV STA (01:56)
[2019-06-01] MEDS ORDERED: LORAZEPAM 2MG/ML CPJ IV STA (01:56)
[2019-06-01] MEDS ORDERED: MORPHINE SULFATE 4 MG/ML CPJ (NOT FOR IM USE) IV STA (01:56)
[2019-06-01 02:16] LABS: BASOPHILS % 0.8 % (0.0-2.0); EOSINOPHILS % 3.4 % (0.0-5.0); HEMATOCRIT. 39.5 % (42.0-52.0); HEMOGLOBIN. 13.2 g/dL (14.0-18.0); LYMPHOCYTES % 15.8 % (20.0-50.0); MEAN CORPUSCULAR HEMOGLOBIN 30.7 pg (28.0-32.0); MEAN CORPUSCULAR VOLUME 91.7 fL (80.0-94.0); MEAN PLATELET VOLUME 9.5 fl (7.4-10.4); MONOCYTES % 3.1 % (2.0-8.0); NEUTROPHILS % 76.9 % (40.0-76.0); PLATELET 72 x1000/uL (130-400); RED CELL DISTRIBUTION WIDTH 14.3 % (11.6-14.6)
[2019-06-01 02:20] LABS: CHLORIDE 104 mEq/L (98-107)
[2019-06-01 02:23] LABS: BG BASE EXCESS -12.9 mmol/L (-2.0-2.0); BG CARBOXYHEMOGLOBIN 0.7 % (0.5-1.5); BG DEOXYHEMOGLOBIN 10.9 % (0.0-5.0); BG FRACTION INSPIRED OXYGEN 21; BG METHEMOGLOBIN 0.3 % (0.0-1.5); BG OXYHEMOGLOBIN 88.1 % (94.0-97.0); BG PCO2 35.9 mmHg (35.0-45.0); BG PH 7.209 (7.350-7.450); BG PO2 71.7 mmHg (75.0-100.0); BG SAMPLE SITE RIGHT BRACHIAL; BG TOTAL HEMOGLOBIN 12.4 g/dL (12.0-18.0); BG VENT MODE ROOM AIR
[2019-06-01 02:24] LABS: ETHANOL BLOOD < 10 mg/dL
[2019-06-01 02:29] LABS: CREATINE KINASE 312 IU/L (39-308)
[2019-06-01] MEDS ORDERED: MIDAZOLAM HCL 2 MG/2 ML VIAL IV ONE ×2 (02:45→03:45)
[2019-06-01] MEDS ORDERED: MIDAZOLAM HCL 50 MG in DEXTROSE 5% WATER 40 ML IV ONE (03:45)
[2019-06-01] MEDS ORDERED: VECURONIUM BROMIDE 10 MG/VIAL IV ONE ×2 (03:45→04:00)
[2019-06-01] MEDS ORDERED: SODIUM CHLORIDE 0.9% 10ML VIAL ONE (04:00)
[2019-06-01 04:04] LABS: BG BASE EXCESS -13.5 mmol/L (-2.0-2.0); BG CARBOXYHEMOGLOBIN 0.3 % (0.5-1.5); BG DEOXYHEMOGLOBIN 2.1 % (0.0-5.0); BG FRACTION INSPIRED OXYGEN 50; BG HCO3 ACT 14.7 mmol/L (22.0-26.0); BG METHEMOGLOBIN 0.3 % (0.0-1.5); BG OXYGEN SATURATION 97.9 % (92.0-98.5); BG OXYHEMOGLOBIN 97.3 % (94.0-97.0); BG PH 7.152 (7.350-7.450); BG PO2 185.2 mmHg (75.0-100.0); BG SAMPLE SITE LEFT BRACHIAL; BG TIDAL VOLUME(mL) 400 mL; BG TOTAL HEMOGLOBIN 11.6 g/dL (12.0-18.0); BG VENT MODE VENT - A/C; BG VENT RATE 16 set
[2019-06-01] MEDS ORDERED: PIPERACILLIN/TAZ 3.375G PREMIX 50 ML IV ONE (05:00)
[2019-06-01] MEDS ORDERED: VANCOMYCIN 1 G PREMIX 200 ML IV ONE (05:00)
[2019-06-01] MEDS ORDERED: SODIUM CHLORIDE 0.9% 1000ML BAG (SEPSIS BOLUS) IV ONE (05:00)
[2019-06-01] MEDS ORDERED: DEXT 5%/LACTATED RINGERS 1,000 ML IV SCH (06:54)
[2019-06-01] MEDS ORDERED: ONDANSETRON HCL 4MG/2ML INJ IV PRN (07:00)
[2019-06-01] MEDS ORDERED: CLONIDINE 0.1MG TABLET PO PRN (07:00)
[2019-06-01] MEDS ORDERED: GUAIFENESIN 200MG/10ML SUGAR FREE UDC PO PRN (07:00)
[2019-06-01] MEDS ORDERED: ACETAMINOPHEN 325MG TABLET PO PRN (07:00)
[2019-06-01] MEDS ORDERED: IPRATROPIUM/ALBUTEROL 0.5-3(2.5)MG/3ML NEB NEB PRN (07:00)
[2019-06-01] MEDS ORDERED: SODIUM BICARBONATE 8.4% 1 MEQ/ML 50ML SYR IV ONE (07:00)
[2019-06-01] MEDS ORDERED: PIPERACILLIN/TAZ 3.375G PREMIX 50 ML IV SCH (07:00)
[2019-06-01] MEDS: INSULIN LISPRO 100 UNITS/ML SUBCUT SCH ×4 (08:20→21:46)
[2019-06-01] MEDS: MIDAZOLAM HCL 100 MG in DEXT 5% WATER 80 ML IV PRN ×2 (09:00→18:16)
[2019-06-01] MEDS: BLOOD SUGAR DIAGNOSTIC STRIP TEST SCH ×4 (09:00→20:56)
[2019-06-01] MEDS ORDERED: MIDODRINE HCL 5MG TABLET PO SCH (09:00)
[2019-06-01] MEDS ORDERED: LEVETIRACETAM 500MG PREMIX 100 ML IV SCH (09:00)
[2019-06-01] MEDS ORDERED: PHENYLEPHRINE 20 MG in DEXT 5% WATER 248 ML IV PRN (12:15)
[2019-06-01] MEDS ORDERED: MIDODRINE HCL 5MG TABLET PO PRN (12:15)
[2019-06-01] MEDS ORDERED: NOREPINEPHRINE 8 MG in DEXT 5% WATER 242 ML IV PRN (12:15)
[2019-06-01] MEDS ORDERED: DEXTROSE 5% WATER 1,000 ML IV SCH (12:45)
[2019-06-01] MEDS: IPRATROPIUM/ALBUTEROL 0.5-3(2.5)MG/3ML NEB HHN SCH ×4 (13:04→23:48)
[2019-06-01] MEDS: PANTOPRAZOLE SODIUM 40 MG/VIAL IV SCH (13:17)
[2019-06-01] MEDS: LEVETIRACETAM 500MG in SODIUM CHLORIDE 0.9% 100ML IV SCH ×2 (14:52→20:57)
[2019-06-01] MEDS: INSULIN GLARGINE UD 100 UNITS/ML SYR SUBCUT SCH (14:54)
[2019-06-01] MEDS ORDERED: ENOXAPARIN 30MG/0.3ML SYR SUBCUT SCH (15:00)
[2019-06-01 15:13] LABS: BG BASE EXCESS 1.7 mmol/L (-2.0-2.0); BG CARBOXYHEMOGLOBIN 0.3 % (0.5-1.5); BG FRACTION INSPIRED OXYGEN 45; BG HCO3 ACT 24.3 mmol/L (22.0-26.0); BG METHEMOGLOBIN 0.3 % (0.0-1.5); BG OXYHEMOGLOBIN 97.4 % (94.0-97.0); BG PCO2 31.4 mmHg (35.0-45.0); BG PH 7.507 (7.350-7.450); BG PO2 184.9 mmHg (75.0-100.0); BG SAMPLE SITE LEFT RADIAL; BG TIDAL VOLUME(mL) 400 mL; BG TOTAL HEMOGLOBIN 10.9 g/dL (12.0-18.0); BG VENT MODE VENT - A/C; BG VENT RATE 16 set
[2019-06-01] MEDS ORDERED: VANCOMYCIN 500 MG PREMIX 100 ML IV NR (16:00)
[2019-06-01 16:18] LABS: CREATINE KINASE 441 IU/L (39-308)
[2019-06-01 16:19] LABS: CREATINE KINASE MB FRACTION 6.2 ng/mL (0.5-3.6)
[2019-06-01] MEDS: MIDODRINE HCL 5MG TABLET PO SCH ×2 (16:49→17:00)
[2019-06-01] MEDS: FENTANYL CITRATE/PF 500 MCG in SODIUM CHLORIDE 0.9% 40 ML IV PRN (16:52)
[2019-06-01] MEDS ORDERED: PIPERACILLIN/TAZ 2.25G PREMIX 50 ML IV SCH (18:00)
[2019-06-01] MEDS: PIPERACILLIN/TAZOBACTAM 2.25 G in DEXTROSE 5% WATER 50 ML IV SCH (21:47)
[2019-06-02] VITALS (95 sets, daily range): BP systolic 74–148; BP diastolic 46–81
[2019-06-02 00:40] LABS: CREATINE KINASE 326 IU/L (39-308)
[2019-06-02 00:41] LABS: CREATINE KINASE MB FRACTION 2.8 ng/mL (0.5-3.6)
[2019-06-02] MEDS: FENTANYL CITRATE/PF 500 MCG in SODIUM CHLORIDE 0.9% 40 ML IV PRN ×2 (02:50→16:03)
[2019-06-02] MEDS: IPRATROPIUM/ALBUTEROL 0.5-3(2.5)MG/3ML NEB HHN SCH ×5 (04:21→20:20)
[2019-06-02 05:43] LABS: BASOPHILS % 0.2 % (0.0-2.0); EOSINOPHILS % 0.5 % (0.0-5.0); HEMATOCRIT. 28.5 % (42.0-52.0); HEMOGLOBIN. 9.7 g/dL (14.0-18.0); LYMPHOCYTES % 14.4 % (20.0-50.0); MEAN CORPUSCULAR VOLUME 91.3 fL (80.0-94.0); MEAN PLATELET VOLUME 9.4 fl (7.4-10.4); MONOCYTES % 5.4 % (2.0-8.0); NEUTROPHILS % 79.5 % (40.0-76.0); PLATELET 108 x1000/uL (130-400); RED BLOOD CELL COUNT 3.12 mill/uL (4.7-6.1)
[2019-06-02 05:48] LABS: CHLORIDE 98 mEq/L (98-107)
[2019-06-02 06:02] LABS: PHOSPHORUS 5.1 mg/dL (2.5-4.9)
[2019-06-02] MEDS: BLOOD SUGAR DIAGNOSTIC STRIP TEST SCH ×4 (06:11→20:42)
[2019-06-02] MEDS: INSULIN LISPRO 100 UNITS/ML SUBCUT SCH ×4 (06:23→20:42)
[2019-06-02] MEDS ORDERED: DEXT 5%/0.9% NACL 1,000 ML IV SCH (08:00)
[2019-06-02 08:29] LABS: BG BASE EXCESS -2.9 mmol/L (-2.0-2.0); BG CARBOXYHEMOGLOBIN 0.3 % (0.5-1.5); BG DEOXYHEMOGLOBIN 1.9 % (0.0-5.0); BG FRACTION INSPIRED OXYGEN 45; BG METHEMOGLOBIN 0.1 % (0.0-1.5); BG OXYGEN SATURATION 98.1 % (92.0-98.5); BG OXYHEMOGLOBIN 97.7 % (94.0-97.0); BG PCO2 38.4 mmHg (35.0-45.0); BG PH 7.376 (7.350-7.450); BG PO2 200.4 mmHg (75.0-100.0); BG SAMPLE SITE LEFT RADIAL; BG TIDAL VOLUME(mL) 400 mL; BG TOTAL HEMOGLOBIN 9.6 g/dL (12.0-18.0); BG VENT MODE VENT - A/C; BG VENT RATE 16 set
[2019-06-02] MEDS: PANTOPRAZOLE SODIUM 40 MG/VIAL IV SCH (08:40)
[2019-06-02] MEDS: LEVETIRACETAM 500MG in SODIUM CHLORIDE 0.9% 100ML IV SCH ×2 (08:40→21:18)
[2019-06-02] MEDS: MIDODRINE HCL 5MG TABLET PO SCH ×3 (08:41→19:30)
[2019-06-02] MEDS: MIDAZOLAM HCL 100 MG in DEXT 5% WATER 80 ML IV PRN (08:44)
[2019-06-02] MEDS: PIPERACILLIN/TAZOBACTAM 2.25 G in DEXTROSE 5% WATER 50 ML IV SCH ×2 (10:50→20:30)
[2019-06-02] MEDS: INSULIN GLARGINE UD 100 UNITS/ML SYR SUBCUT SCH (10:52)
[2019-06-02] MEDS ORDERED: NOREPINEPHRINE 8 MG in DEXT 5% WATER 242 ML IV PRN (12:00)
[2019-06-02] MEDS ORDERED: PHENYLEPHRINE 20 MG in DEXT 5% WATER 248 ML IV PRN (12:00)
[2019-06-02] MEDS ORDERED: KETO5DRO80 LEFTEYE (16:17)
[2019-06-02] MEDS ORDERED: CIPR2.5D17 LEFTEYE (16:17)
[2019-06-02] MEDS ORDERED: PRED5DRO22 LEFTEYE (16:17)
[2019-06-02] MEDS: PREDNISOLONE ACETATE 1% OPHTH DROPS 5ML LEFTEYE SCH ×2 (17:00→20:44)
[2019-06-02] MEDS: CIPROFLOXACIN 0.3% OPHTH SOLN 2.5ML LEFTEYE SCH ×2 (17:00→20:44)
[2019-06-02] MEDS: KETOROLAC TROMETHAMINE 0.4% OPHTH 5ML LEFTEYE SCH ×2 (17:00→20:44)
[2019-06-02] MEDS ORDERED: LACTULOSE 20G/30ML UDC PO NR (19:45)
[2019-06-03] VITALS (88 sets, daily range): BP systolic 83–156; BP diastolic 46–95
[2019-06-03] MEDS: IPRATROPIUM/ALBUTEROL 0.5-3(2.5)MG/3ML NEB HHN SCH ×7 (00:06→23:57)
[2019-06-03 05:26] LABS: BASOPHILS % 0.6 % (0.0-2.0); EOSINOPHILS % 3.4 % (0.0-5.0); HEMATOCRIT. 28.5 % (42.0-52.0); HEMOGLOBIN. 9.8 g/dL (14.0-18.0); LYMPHOCYTES % 14.4 % (20.0-50.0); MEAN CORPUSCULAR HEMOGLOBIN 31.2 pg (28.0-32.0); MEAN CORPUSCULAR VOLUME 90.9 fL (80.0-94.0); MEAN PLATELET VOLUME 10.4 fl (7.4-10.4); MONOCYTES % 5.2 % (2.0-8.0); NEUTROPHILS % 76.4 % (40.0-76.0); PLATELET 63 x1000/uL (130-400); RED BLOOD CELL COUNT 3.13 mill/uL (4.7-6.1); RED CELL DISTRIBUTION WIDTH 13.8 % (11.6-14.6)
[2019-06-03 05:36] LABS: CHLORIDE 97 mEq/L (98-107)
[2019-06-03 05:47] LABS: PHOSPHORUS 7.2 mg/dL (2.5-4.9)
[2019-06-03] MEDS: BLOOD SUGAR DIAGNOSTIC STRIP TEST SCH ×4 (06:19→21:54)
[2019-06-03] MEDS: INSULIN LISPRO 100 UNITS/ML SUBCUT SCH ×4 (06:19→22:19)
[2019-06-03 08:56] LABS: BG BASE EXCESS -4.4 mmol/L (-2.0-2.0); BG CARBOXYHEMOGLOBIN 0.3 % (0.5-1.5); BG DEOXYHEMOGLOBIN 1.8 % (0.0-5.0); BG FRACTION INSPIRED OXYGEN 40; BG HCO3 ACT 20.6 mmol/L (22.0-26.0); BG METHEMOGLOBIN 0.3 % (0.0-1.5); BG OXYGEN SATURATION 98.2 % (92.0-98.5); BG OXYHEMOGLOBIN 97.6 % (94.0-97.0); BG PCO2 37.3 mmHg (35.0-45.0); BG PH 7.359 (7.350-7.450); BG PO2 183.3 mmHg (75.0-100.0); BG SAMPLE SITE LEFT RADIAL; BG TIDAL VOLUME(mL) 400 mL; BG TOTAL HEMOGLOBIN 9.4 g/dL (12.0-18.0); BG VENT MODE VENT - A/C; BG VENT RATE 16 set
[2019-06-03] MEDS: PIPERACILLIN/TAZOBACTAM 2.25 G in DEXTROSE 5% WATER 50 ML IV SCH ×2 (09:14→22:02)
[2019-06-03] MEDS: LEVETIRACETAM 500MG in SODIUM CHLORIDE 0.9% 100ML IV SCH ×2 (09:14→22:02)
[2019-06-03 10:19] LABS: T4 FREE 0.93 ng/dL (0.76-1.46)
[2019-06-03] MEDS: MIDODRINE HCL 5MG TABLET PO SCH ×3 (10:35→17:13)
[2019-06-03] MEDS: PANTOPRAZOLE SODIUM 40 MG/VIAL IV SCH (10:35)
[2019-06-03] MEDS: PREDNISOLONE ACETATE 1% OPHTH DROPS 5ML LEFTEYE SCH ×4 (10:36→22:00)
[2019-06-03] MEDS: CIPROFLOXACIN 0.3% OPHTH SOLN 2.5ML LEFTEYE SCH ×4 (10:36→22:00)
[2019-06-03] MEDS: KETOROLAC TROMETHAMINE 0.4% OPHTH 5ML LEFTEYE SCH ×4 (10:36→22:00)
[2019-06-03] MEDS: FOLIC ACID/VITAMIN B COMP W-C TABLET PO SCH (10:37)
[2019-06-03] MEDS: INSULIN GLARGINE UD 100 UNITS/ML SYR SUBCUT SCH (10:37)
[2019-06-03 10:53] LABS: FOLIC ACID (FOLATE) SERUM >20 ng/mL ng/mL (>5.38)
[2019-06-03 11:04] LABS: VITAMIN B12 SERUM 819 pg/mL (211-911)
[2019-06-03] MEDS: FENTANYL CITRATE/PF 500 MCG in SODIUM CHLORIDE 0.9% 40 ML IV PRN (11:43)
[2019-06-03] MEDS: MIDAZOLAM HCL 100 MG in DEXT 5% WATER 80 ML IV PRN (15:30)
[2019-06-03] MEDS ORDERED: VANCOMYCIN 1 G PREMIX 200 ML IV NR (17:00)
[2019-06-03] MEDS: EPOETIN ALFA 4000UNITS/ML VIAL SUBCUT SCH (22:02)
[2019-06-04] VITALS (92 sets, daily range): BP systolic 97–162; BP diastolic 53–91
[2019-06-04] MEDS: IPRATROPIUM/ALBUTEROL 0.5-3(2.5)MG/3ML NEB HHN SCH ×5 (04:19→21:22)
[2019-06-04 05:04] LABS: BASOPHILS % 0.3 % (0.0-2.0); HEMATOCRIT. 28.2 % (42.0-52.0); HEMOGLOBIN. 9.6 g/dL (14.0-18.0); LYMPHOCYTES % 16.8 % (20.0-50.0); MEAN CORPUSCULAR HEMOGLOBIN 30.7 pg (28.0-32.0); MEAN CORPUSCULAR VOLUME 90.6 fL (80.0-94.0); MEAN PLATELET VOLUME 10.8 fl (7.4-10.4); MONOCYTES % 6.5 % (2.0-8.0); NEUTROPHILS % 70.4 % (40.0-76.0); PLATELET 63 x1000/uL (130-400); RED BLOOD CELL COUNT 3.11 mill/uL (4.7-6.1); RED CELL DISTRIBUTION WIDTH 13.6 % (11.6-14.6)
[2019-06-04 05:09] LABS: CHLORIDE 103 mEq/L (98-107)
[2019-06-04] MEDS: FENTANYL CITRATE/PF 500 MCG in SODIUM CHLORIDE 0.9% 40 ML IV PRN (05:13)
[2019-06-04 05:16] LABS: PHOSPHORUS 4.9 mg/dL (2.5-4.9)
[2019-06-04] MEDS: INSULIN LISPRO 100 UNITS/ML SUBCUT SCH ×4 (06:29→21:00)
[2019-06-04] MEDS: BLOOD SUGAR DIAGNOSTIC STRIP TEST SCH ×4 (06:29→21:00)
[2019-06-04 08:09] LABS: BG BASE EXCESS -3.1 mmol/L (-2.0-2.0); BG CARBOXYHEMOGLOBIN 0.3 % (0.5-1.5); BG DEOXYHEMOGLOBIN 2.3 % (0.0-5.0); BG HCO3 ACT 21.9 mmol/L (22.0-26.0); BG METHEMOGLOBIN 0.3 % (0.0-1.5); BG OXYGEN SATURATION 97.7 % (92.0-98.5); BG OXYHEMOGLOBIN 97.1 % (94.0-97.0); BG PH 7.367 (7.350-7.450); BG PO2 164.7 mmHg (75.0-100.0); BG SAMPLE SITE LEFT BRACHIAL; BG TIDAL VOLUME(mL) 450 mL; BG TOTAL HEMOGLOBIN 8.8 g/dL (12.0-18.0); BG VENT MODE VENT - SIMV; BG VENT RATE 8 set
[2019-06-04] MEDS: FOLIC ACID/VITAMIN B COMP W-C TABLET PO SCH (08:58)
[2019-06-04] MEDS: LEVETIRACETAM 500MG in SODIUM CHLORIDE 0.9% 100ML IV SCH ×2 (08:58→20:22)
[2019-06-04] MEDS: PANTOPRAZOLE SODIUM 40 MG/VIAL IV SCH (08:58)
[2019-06-04] MEDS: MIDODRINE HCL 5MG TABLET PO SCH ×3 (08:59→17:56)
[2019-06-04] MEDS: CIPROFLOXACIN 0.3% OPHTH SOLN 2.5ML LEFTEYE SCH ×4 (09:00→20:21)
[2019-06-04] MEDS: PREDNISOLONE ACETATE 1% OPHTH DROPS 5ML LEFTEYE SCH ×4 (09:00→20:21)
[2019-06-04] MEDS: KETOROLAC TROMETHAMINE 0.4% OPHTH 5ML LEFTEYE SCH ×4 (09:00→20:21)
[2019-06-04] MEDS: INSULIN GLARGINE UD 100 UNITS/ML SYR SUBCUT SCH (09:00)
[2019-06-04] MEDS ORDERED: LORAZEPAM 2MG/ML CPJ IV PRN (10:45)
[2019-06-04 12:44] LABS: BG BASE EXCESS 0.8 mmol/L (-2.0-2.0); BG CARBOXYHEMOGLOBIN 0.3 % (0.5-1.5); BG CPAP (cmH2O) 0 cm(H2O); BG HCO3 ACT 26.3 mmol/L (22.0-26.0); BG OXYHEMOGLOBIN 97.7 % (94.0-97.0); BG PCO2 45.5 mmHg (35.0-45.0); BG PH 7.379 (7.350-7.450); BG PO2 175.6 mmHg (75.0-100.0); BG SAMPLE SITE LEFT BRACHIAL; BG TOTAL HEMOGLOBIN 11.1 g/dL (12.0-18.0); BG VENT MODE VENT - CPAP
[2019-06-04] MEDS: PIPERACILLIN/TAZOBACTAM 2.25 G in DEXTROSE 5% WATER 50 ML IV SCH ×2 (13:15→20:22)
[2019-06-05] VITALS (92 sets, daily range): BP systolic 101–164; BP diastolic 45–98
[2019-06-05] MEDS: IPRATROPIUM/ALBUTEROL 0.5-3(2.5)MG/3ML NEB HHN SCH ×6 (01:26→20:45)
[2019-06-05 05:11] LABS: BASOPHILS % 0.5 % (0.0-2.0); EOSINOPHILS % 4.4 % (0.0-5.0); HEMATOCRIT. 29.2 % (42.0-52.0); LYMPHOCYTES % 12.8 % (20.0-50.0); MEAN CORPUSCULAR HEMOGLOBIN 30.7 pg (28.0-32.0); MEAN PLATELET VOLUME 9.4 fl (7.4-10.4); MONOCYTES % 6.5 % (2.0-8.0); NEUTROPHILS % 75.8 % (40.0-76.0); PLATELET 91 x1000/uL (130-400); RED BLOOD CELL COUNT 3.25 mill/uL (4.7-6.1); RED CELL DISTRIBUTION WIDTH 13.4 % (11.6-14.6)
[2019-06-05 05:21] LABS: CHLORIDE 104 mEq/L (98-107)
[2019-06-05 05:33] LABS: PHOSPHORUS 5.6 mg/dL (2.5-4.9)
[2019-06-05] MEDS: INSULIN LISPRO 100 UNITS/ML SUBCUT SCH ×4 (06:17→21:00)
[2019-06-05] MEDS: BLOOD SUGAR DIAGNOSTIC STRIP TEST SCH ×4 (06:17→21:01)
[2019-06-05] MEDS: LEVETIRACETAM 500MG in SODIUM CHLORIDE 0.9% 100ML IV SCH ×2 (09:54→21:06)
[2019-06-05] MEDS: PIPERACILLIN/TAZOBACTAM 2.25 G in DEXTROSE 5% WATER 50 ML IV SCH ×2 (09:54→21:06)
[2019-06-05] MEDS: FOLIC ACID/VITAMIN B COMP W-C TABLET PO SCH (09:54)
[2019-06-05] MEDS: MIDODRINE HCL 5MG TABLET PO SCH ×3 (09:55→17:17)
[2019-06-05] MEDS: KETOROLAC TROMETHAMINE 0.4% OPHTH 5ML LEFTEYE SCH ×4 (09:56→21:06)
[2019-06-05] MEDS: CIPROFLOXACIN 0.3% OPHTH SOLN 2.5ML LEFTEYE SCH ×4 (09:56→21:06)
[2019-06-05] MEDS: PREDNISOLONE ACETATE 1% OPHTH DROPS 5ML LEFTEYE SCH ×4 (09:56→21:06)
[2019-06-05] MEDS: INSULIN GLARGINE UD 100 UNITS/ML SYR SUBCUT SCH (10:30)
[2019-06-05] MEDS: DEXTROSE 50% WATER 50ML SYRINGE IV PRN ×2 (17:19→21:06)
[2019-06-06] VITALS (62 sets, daily range): BP systolic 109–168; BP diastolic 55–100
[2019-06-06] MEDS: IPRATROPIUM/ALBUTEROL 0.5-3(2.5)MG/3ML NEB HHN SCH ×6 (00:16→20:13)
[2019-06-06 05:19] LABS: BASOPHILS % 0.6 % (0.0-2.0); EOSINOPHILS % 6.3 % (0.0-5.0); LYMPHOCYTES % 15.8 % (20.0-50.0); MEAN CORPUSCULAR HEMOGLOBIN 31.1 pg (28.0-32.0); MEAN CORPUSCULAR VOLUME 90.1 fL (80.0-94.0); MEAN PLATELET VOLUME 9.5 fl (7.4-10.4); MONOCYTES % 9.7 % (2.0-8.0); NEUTROPHILS % 67.6 % (40.0-76.0); PLATELET 76 x1000/uL (130-400); RED BLOOD CELL COUNT 2.89 mill/uL (4.7-6.1); RED CELL DISTRIBUTION WIDTH 13.7 % (11.6-14.6)
[2019-06-06 05:29] LABS: PHOSPHORUS 4.4 mg/dL (2.5-4.9)
[2019-06-06] MEDS: BLOOD SUGAR DIAGNOSTIC STRIP TEST SCH ×4 (05:58→21:05)
[2019-06-06] MEDS: INSULIN LISPRO 100 UNITS/ML SUBCUT SCH ×4 (06:03→21:00)
[2019-06-06] MEDS: LEVETIRACETAM 500MG in SODIUM CHLORIDE 0.9% 100ML IV SCH ×2 (08:51→21:04)
[2019-06-06] MEDS: PIPERACILLIN/TAZOBACTAM 2.25 G in DEXTROSE 5% WATER 50 ML IV SCH ×2 (08:51→22:29)
[2019-06-06] MEDS: MIDODRINE HCL 5MG TABLET PO SCH ×3 (08:52→17:23)
[2019-06-06] MEDS: FOLIC ACID/VITAMIN B COMP W-C TABLET PO SCH (08:52)
[2019-06-06] MEDS: PREDNISOLONE ACETATE 1% OPHTH DROPS 5ML LEFTEYE SCH ×4 (08:53→21:05)
[2019-06-06] MEDS: CIPROFLOXACIN 0.3% OPHTH SOLN 2.5ML LEFTEYE SCH ×4 (08:53→21:05)
[2019-06-06] MEDS: KETOROLAC TROMETHAMINE 0.4% OPHTH 5ML LEFTEYE SCH ×4 (08:53→21:05)
[2019-06-06] MEDS: INSULIN GLARGINE UD 100 UNITS/ML SYR SUBCUT SCH (10:47)
[2019-06-06] MEDS: DEXTROSE 50% WATER 50ML SYRINGE IV PRN (21:05)
[2019-06-07] VITALS (11 sets, daily range): BP systolic 114–166; BP diastolic 42–92
[2019-06-07] MEDS: IPRATROPIUM/ALBUTEROL 0.5-3(2.5)MG/3ML NEB HHN SCH ×6 (00:43→21:14)
[2019-06-07 06:48] LABS: BASOPHILS % 0.8 % (0.0-2.0); EOSINOPHILS % 10.5 % (0.0-5.0); HEMATOCRIT. 24.2 % (42.0-52.0); HEMOGLOBIN. 8.2 g/dL (14.0-18.0); LYMPHOCYTES % 26.6 % (20.0-50.0); MEAN CORPUSCULAR HEMOGLOBIN 30.8 pg (28.0-32.0); MEAN PLATELET VOLUME 10.1 fl (7.4-10.4); MONOCYTES % 9.1 % (2.0-8.0); PLATELET 74 x1000/uL (130-400); RED BLOOD CELL COUNT 2.66 mill/uL (4.7-6.1); RED CELL DISTRIBUTION WIDTH 13.4 % (11.6-14.6)
[2019-06-07 07:35] LABS: PHOSPHORUS 5.8 mg/dL (2.5-4.9)
[2019-06-07] MEDS: BLOOD SUGAR DIAGNOSTIC STRIP TEST SCH ×4 (07:56→20:53)
[2019-06-07] MEDS: INSULIN LISPRO 100 UNITS/ML SUBCUT SCH ×4 (07:56→20:57)
[2019-06-07] MEDS: LEVETIRACETAM 500MG/5ML CUP PO SCH ×2 (09:53→20:53)
[2019-06-07] MEDS: PIPERACILLIN/TAZOBACTAM 2.25 G in DEXTROSE 5% WATER 50 ML IV SCH ×2 (09:53→20:53)
[2019-06-07] MEDS: MIDODRINE HCL 5MG TABLET PO SCH ×3 (09:54→17:00)
[2019-06-07] MEDS: FOLIC ACID/VITAMIN B COMP W-C TABLET PO SCH (09:54)
[2019-06-07] MEDS: CALCIUM ACETATE 667MG CAPSULE PO SCH ×3 (09:54→17:41)
[2019-06-07] MEDS: CIPROFLOXACIN 0.3% OPHTH SOLN 2.5ML LEFTEYE SCH ×4 (09:55→20:53)
[2019-06-07] MEDS: PREDNISOLONE ACETATE 1% OPHTH DROPS 5ML LEFTEYE SCH ×4 (09:55→20:53)
[2019-06-07] MEDS: KETOROLAC TROMETHAMINE 0.4% OPHTH 5ML LEFTEYE SCH ×4 (09:55→20:53)
[2019-06-07] MEDS: INSULIN GLARGINE UD 100 UNITS/ML SYR SUBCUT SCH (11:37)
[2019-06-08] VITALS (9 sets, daily range): BP systolic 102–151; BP diastolic 60–90
[2019-06-08] MEDS: IPRATROPIUM/ALBUTEROL 0.5-3(2.5)MG/3ML NEB HHN SCH ×4 (00:59→11:52)
[2019-06-08 06:41] LABS: BASOPHILS % 0.8 % (0.0-2.0); EOSINOPHILS % 10.7 % (0.0-5.0); HEMATOCRIT. 23.2 % (42.0-52.0); HEMOGLOBIN. 7.9 g/dL (14.0-18.0); LYMPHOCYTES % 22.6 % (20.0-50.0); MEAN CORPUSCULAR VOLUME 90.8 fL (80.0-94.0); MEAN PLATELET VOLUME 9.8 fl (7.4-10.4); MONOCYTES % 7.4 % (2.0-8.0); NEUTROPHILS % 58.5 % (40.0-76.0); PLATELET 72 x1000/uL (130-400); RED BLOOD CELL COUNT 2.55 mill/uL (4.7-6.1); RED CELL DISTRIBUTION WIDTH 13.4 % (11.6-14.6)
[2019-06-08] MEDS: INSULIN LISPRO 100 UNITS/ML SUBCUT SCH ×4 (07:50→21:00)
[2019-06-08] MEDS: BLOOD SUGAR DIAGNOSTIC STRIP TEST SCH ×4 (07:50→21:01)
[2019-06-08] MEDS: CALCIUM ACETATE 667MG CAPSULE PO SCH ×4 (08:00→17:38)
[2019-06-08] MEDS: MIDODRINE HCL 5MG TABLET PO SCH ×3 (08:09→17:00)
[2019-06-08] MEDS: KETOROLAC TROMETHAMINE 0.4% OPHTH 5ML LEFTEYE SCH ×4 (08:09→21:00)
[2019-06-08] MEDS: PREDNISOLONE ACETATE 1% OPHTH DROPS 5ML LEFTEYE SCH ×4 (08:09→21:00)
[2019-06-08] MEDS: CIPROFLOXACIN 0.3% OPHTH SOLN 2.5ML LEFTEYE SCH ×4 (08:10→21:00)
[2019-06-08] MEDS: FOLIC ACID/VITAMIN B COMP W-C TABLET PO SCH ×2 (08:12→11:59)
[2019-06-08] MEDS: LEVETIRACETAM 500MG/5ML CUP PO SCH ×3 (08:12→21:04)
[2019-06-08] MEDS: INSULIN GLARGINE UD 100 UNITS/ML SYR SUBCUT SCH (10:35)
[2019-06-08] MEDS ORDERED: VANCOMYCIN 500 MG PREMIX 100 ML IV NR (12:00)
[2019-06-08] MEDS ORDERED: THROAT LOZENGES-BENZOCAINE/MENTH/CETYLPYRD CL LOZENGES MM PRN (15:00)
[2019-06-08] MEDS ORDERED: BENZONATATE 100MG CAPSULE PO PRN (15:00)
[2019-06-08] MEDS: EPOETIN ALFA 4000UNITS/ML VIAL SUBCUT SCH (22:22)
[2019-06-09 06:50] LABS: BASOPHILS % 0.7 % (0.0-2.0); EOSINOPHILS % 11.1 % (0.0-5.0); HEMOGLOBIN. 8.3 g/dL (14.0-18.0); MEAN CORPUSCULAR HEMOGLOBIN 31.4 pg (28.0-32.0); MEAN CORPUSCULAR VOLUME 90.7 fL (80.0-94.0); MEAN PLATELET VOLUME 9.3 fl (7.4-10.4); MONOCYTES % 7.5 % (2.0-8.0); NEUTROPHILS % 55.7 % (40.0-76.0); PLATELET 82 x1000/uL (130-400); RED BLOOD CELL COUNT 2.65 mill/uL (4.7-6.1); RED CELL DISTRIBUTION WIDTH 13.6 % (11.6-14.6)
[2019-06-09] MEDS: BLOOD SUGAR DIAGNOSTIC STRIP TEST SCH ×2 (07:30→12:34)
[2019-06-09] MEDS: INSULIN LISPRO 100 UNITS/ML SUBCUT SCH ×2 (08:00→12:34)
[2019-06-09 08:01] VITALS: BP 126/57
[2019-06-09] MEDS: FOLIC ACID/VITAMIN B COMP W-C TABLET PO SCH (09:53)
[2019-06-09] MEDS: KETOROLAC TROMETHAMINE 0.4% OPHTH 5ML LEFTEYE SCH ×2 (09:53→13:03)
[2019-06-09] MEDS: CIPROFLOXACIN 0.3% OPHTH SOLN 2.5ML LEFTEYE SCH ×2 (09:53→13:03)
[2019-06-09] MEDS: PREDNISOLONE ACETATE 1% OPHTH DROPS 5ML LEFTEYE SCH ×2 (09:53→13:02)
[2019-06-09] MEDS: MIDODRINE HCL 5MG TABLET PO SCH ×2 (09:53→13:00)
[2019-06-09] MEDS: CALCIUM ACETATE 667MG CAPSULE PO SCH ×2 (09:53→13:03)
[2019-06-09] MEDS: LEVETIRACETAM 500MG/5ML CUP PO SCH (09:53)
[2019-06-09 12:00] VITALS: BP 139/69
[2019-06-09] MEDS ORDERED: MESALAMINE 400 MG CAPSULE.DR PO SCH (13:00)
[2019-06-09 16:00] VITALS: BP 126/79
[2019-06-09 16:04] VITALS: BP 126/57
[2019-06-10 14:12] LABS: 7-AMINOCLONAZEPAM CONFIRM Negative (.); ALPRAZOLAM CONFIRM Negative (.); BARBITURATE SCREEN Negative ug/mL (Cutoff:0.1); BENZODIAZEPINE SCREEN ++POSITIVE++ ng/mL (Cutoff:20); CHLORDIAZEPOXIDE CONFIRM Negative (.); CLONAZEPAM CONFIRM Negative (.); DESMETHYLCHLORDIAZEPOXIDE Negative (.); DIAZEPAM CONFIRM Negative (.); FLURAZEPAM CONFIRM Negative (.); LORAZEPAM CONFIRM Negative (.); MIDAZOLAM CONFIRM 167 ng/mL (.); OPIATES SCREEN Negative ng/mL (Cutoff:5); OXAZEPAM CONFIRM Negative (.); PHENCYCLIDINE SCREEN Negative ng/mL (Cutoff:8); TEMAZEPAM CONFIRM Negative (.); TRIAZOLAM CONFIRM Negative (.)
[2019-06-10] MEDS ORDERED: EPOETIN ALFA 4000UNITS/ML VIAL SUBCUT SCH (21:00)
== END 2019-06-09 17:00 | DRG 871 ==
LOC: ER 01:27 → MICUSO 05:19 → EDBEDREQSVC 05:22 → EDBEDREQ 05:22 → EDBEDREQTM 05:22 → SUPCPDRO 06:53 → ENRESERV 07:25 → 5EST 06-06 21:50
PROVIDERS: ADMIT Family Medicine Adult Medicine; ATTEND Family Medicine Adult Medicine
PROC: 5A1945Z Respiratory Ventilation, 24-96 Consecutive Hours (ICD-10-PCS; principal; 2019-06-01)
PROC: 0BH17EZ Insertion of Endotracheal Airway into Trachea, Via Natural or Artificial Opening (ICD-10-PCS; 2019-06-01)
PROC: 5A1D70Z Performance of Urinary Filtration, Intermittent, Less than 6 Hours Per Day (ICD-10-PCS; 2019-06-01)
PROC: 4A10X4Z Monitoring of Central Nervous Electrical Activity, External Approach (ICD-10-PCS; 2019-06-03)
PROC: 5A1D70Z Performance of Urinary Filtration, Intermittent, Less than 6 Hours Per Day (ICD-10-PCS; 2019-06-03)
PROC: 5A1D70Z Performance of Urinary Filtration, Intermittent, Less than 6 Hours Per Day (ICD-10-PCS; 2019-06-05)
PROC: 5A1D70Z Performance of Urinary Filtration, Intermittent, Less than 6 Hours Per Day (ICD-10-PCS; 2019-06-08)
DX: A41.9 Sepsis, unspecified organism (principal); J96.00 Acute respiratory failure, unspecified whether with hypoxia or hypercapnia; K72.00 Acute and subacute hepatic failure without coma; N18.6 End stage renal disease; G92 Toxic encephalopathy; I46.9 Cardiac arrest, cause unspecified; M62.82 Rhabdomyolysis; E46 Unspecified protein-calorie malnutrition; E87.2 Acidosis; I12.0 Hypertensive chronic kidney disease with stage 5 chronic kidney disease or end stage renal disease; Z16.21 Resistance to vancomycin; Z68.1 Body mass index [BMI] 19.9 or less, adult; K56.699 Other intestinal obstruction unspecified as to partial versus complete obstruction; I95.89 Other hypotension; E11.22 Type 2 diabetes mellitus with diabetic chronic kidney disease; R65.20 Severe sepsis without septic shock; E11.42 Type 2 diabetes mellitus with diabetic polyneuropathy; J84.89 Other specified interstitial pulmonary diseases; B19.20 Unspecified viral hepatitis C without hepatic coma; G54.6 Phantom limb syndrome with pain; E11.51 Type 2 diabetes mellitus with diabetic peripheral angiopathy without gangrene; G40.909 Epilepsy, unspecified, not intractable, without status epilepticus; E11.649 Type 2 diabetes mellitus with hypoglycemia without coma; D69.6 Thrombocytopenia, unspecified; D63.8 Anemia in other chronic diseases classified elsewhere; K52.9 Noninfective gastroenteritis and colitis, unspecified; L89.156 Pressure-induced deep tissue damage of sacral region; L89.226 Pressure-induced deep tissue damage of left hip; R13.10 Dysphagia, unspecified; S80.812A Abrasion, left lower leg, initial encounter; X58.XXXA Exposure to other specified factors, initial encounter; Y93.89 Activity, other specified; Y92.89 Other specified places as the place of occurrence of the external cause; Y99.8 Other external cause status; Z22.322 Carrier or suspected carrier of Methicillin resistant Staphylococcus aureus; Z89.611 Acquired absence of right leg above knee; Z82.49 Family history of ischemic heart disease and other diseases of the circulatory system; Z99.2 Dependence on renal dialysis; Z78.1 Physical restraint status; Z79.4 Long term (current) use of insulin; Z86.74 Personal history of sudden cardiac arrest
CPT/HCPCS: 31500; 36415; 36600; 70551; 71045; 80048; 80061; 80202; 80307; 80320; 82140; 82375; 82550; 82553; 82607; 82746; 82805; 82962; 83036; 83605; 83735; 84100; 84134; 84145; 84439; 84443; 84481; 84484; 87070; 87077; 87186; 92523; 92610; 93005; 93306; 93970; 94002; 94003; 94640; 96365; 96366; 96367; 96375; 96376; 97116; 97162; 97166; 97530; 97535; 99291; C9113; J0885; J1650; J1815; J1953; J2060; J2250; J2270; J2405; J2543; J3010; J3370; J3490; J7030; J7040; J7042; J7050; J7060; J7070; J7620; G0480

== ENCOUNTER 2019-06-09 17:05 | Inpatient (IN) | payer MEDICARE, MEDICAID ==
[~2019-06-09] VITALS: Ht 165.1 cm; Wt 49.9 kg
[~2019-06-09 17:05] MED LIST changes: +CIPR2.5D17 LEFTEYE; +KETO5DRO80 LEFTEYE; +PRED5DRO22 LEFTEYE
[2019-06-09] MEDS ORDERED: BENZONATATE 100MG CAPSULE PO PRN (19:00)
[2019-06-09] MEDS ORDERED: THROAT LOZENGES-BENZOCAINE/MENTH/CETYLPYRD CL LOZENGES MM PRN (19:00)
[2019-06-09] MEDS ORDERED: ACETAMINOPHEN 325MG TABLET PO PRN (19:00)
[2019-06-09] MEDS ORDERED: DEXTROSE 50% WATER 50ML SYRINGE IV PRN (19:00)
[2019-06-09] MEDS ORDERED: ONDANSETRON HCL 4MG/2ML INJ IV PRN (19:00)
[2019-06-09 19:30] VITALS: BP 149/76
[2019-06-09 20:00] VITALS: BP 120/61
[2019-06-09] MEDS ORDERED: IPRATROPIUM/ALBUTEROL 0.5-3(2.5)MG/3ML NEB HHN SCH (20:00)
[2019-06-09] MEDS ORDERED: IPRATROPIUM/ALBUTEROL 0.5-3(2.5)MG/3ML NEB HHN PRN (20:45)
[2019-06-09] MEDS: INSULIN LISPRO 100 UNITS/ML SUBCUT SCH (21:00)
[2019-06-09] MEDS ORDERED: CIPROFLOXACIN 0.3% OPHTH SOLN 2.5ML LEFTEYE SCH (21:00)
[2019-06-09] MEDS: BLOOD SUGAR DIAGNOSTIC STRIP TEST SCH (21:00)
[2019-06-09] MEDS: LEVETIRACETAM 500MG/5ML CUP PO SCH (22:54)
[2019-06-09] MEDS: KETOROLAC TROMETHAMINE 0.4% OPHTH 5ML LEFTEYE SCH (22:55)
[2019-06-09] MEDS: PREDNISOLONE ACETATE 1% OPHTH DROPS 5ML LEFTEYE SCH (22:55)
[2019-06-10] MEDS: BLOOD SUGAR DIAGNOSTIC STRIP TEST SCH ×4 (06:30→21:00)
[2019-06-10 07:18] LABS: BASOPHILS % 0.7 % (0.0-2.0); EOSINOPHILS % 12.6 % (0.0-5.0); HEMATOCRIT. 24.2 % (42.0-52.0); HEMOGLOBIN. 8.2 g/dL (14.0-18.0); LYMPHOCYTES % 26.9 % (20.0-50.0); MEAN CORPUSCULAR HEMOGLOBIN 30.8 pg (28.0-32.0); MEAN CORPUSCULAR VOLUME 91.1 fL (80.0-94.0); MEAN PLATELET VOLUME 8.7 fl (7.4-10.4); MONOCYTES % 5.8 % (2.0-8.0); PLATELET 58 x1000/uL (130-400); RED BLOOD CELL COUNT 2.66 mill/uL (4.7-6.1); RED CELL DISTRIBUTION WIDTH 13.7 % (11.6-14.6)
[2019-06-10 07:23] LABS: CHLORIDE 110 mEq/L (98-107)
[2019-06-10] MEDS: INSULIN LISPRO 100 UNITS/ML SUBCUT SCH ×4 (07:40→21:00)
[2019-06-10 08:15] VITALS: BP 120/70
[2019-06-10] MEDS ORDERED: ENOXAPARIN 30MG/0.3ML SYR SUBCUT SCH (09:00)
[2019-06-10] MEDS: PREDNISOLONE ACETATE 1% OPHTH DROPS 5ML LEFTEYE SCH ×4 (09:20→21:02)
[2019-06-10] MEDS: KETOROLAC TROMETHAMINE 0.4% OPHTH 5ML LEFTEYE SCH ×5 (09:20→21:03)
[2019-06-10] MEDS: MIDODRINE HCL 5MG TABLET PO SCH ×3 (09:22→17:00)
[2019-06-10] MEDS: CALCIUM ACETATE 667MG CAPSULE PO SCH ×3 (09:22→16:56)
[2019-06-10] MEDS: FOLIC ACID/VITAMIN B COMP W-C TABLET PO SCH (09:22)
[2019-06-10] MEDS: LEVETIRACETAM 500MG/5ML CUP PO SCH ×2 (09:23→21:01)
[2019-06-10 11:00] LABS: PHOSPHORUS 5.6 mg/dL (2.5-4.9)
[2019-06-10 12:36] VITALS: BP 120/63
[2019-06-10 20:00] VITALS: BP 133/76
[2019-06-10] MEDS: EPOETIN ALFA 4000UNITS/ML VIAL SUBCUT SCH (21:02)
[2019-06-11] MEDS: BLOOD SUGAR DIAGNOSTIC STRIP TEST SCH ×4 (06:30→20:58)
[2019-06-11] MEDS: INSULIN LISPRO 100 UNITS/ML SUBCUT SCH ×4 (07:01→20:58)
[2019-06-11 08:10] VITALS: BP 159/56
[2019-06-11] MEDS: MIDODRINE HCL 5MG TABLET PO SCH ×3 (09:18→16:05)
[2019-06-11] MEDS: CALCIUM ACETATE 667MG CAPSULE PO SCH ×3 (09:18→16:05)
[2019-06-11] MEDS: FOLIC ACID/VITAMIN B COMP W-C TABLET PO SCH (09:18)
[2019-06-11] MEDS: LEVETIRACETAM 500MG/5ML CUP PO SCH ×2 (09:18→21:18)
[2019-06-11] MEDS: PREDNISOLONE ACETATE 1% OPHTH DROPS 5ML LEFTEYE SCH ×4 (09:18→21:19)
[2019-06-11] MEDS: KETOROLAC TROMETHAMINE 0.4% OPHTH 5ML LEFTEYE SCH ×3 (12:39→21:19)
[2019-06-11 20:00] VITALS: BP 124/69
[2019-06-12 07:48] LABS: BASOPHILS % 0.9 % (0.0-2.0); EOSINOPHILS % 10.2 % (0.0-5.0); HEMATOCRIT. 24.2 % (42.0-52.0); HEMOGLOBIN. 8.1 g/dL (14.0-18.0); MEAN CORPUSCULAR HEMOGLOBIN 30.5 pg (28.0-32.0); MEAN CORPUSCULAR VOLUME 90.9 fL (80.0-94.0); MEAN PLATELET VOLUME 9.6 fl (7.4-10.4); MONOCYTES % 4.5 % (2.0-8.0); NEUTROPHILS % 59.4 % (40.0-76.0); PLATELET 103 x1000/uL (130-400); RED BLOOD CELL COUNT 2.67 mill/uL (4.7-6.1); RED CELL DISTRIBUTION WIDTH 13.3 % (11.6-14.6)
[2019-06-12 08:10] LABS: FERRITIN 696 ng/mL (22-322); PROSTRATE SPECIFIC AG TOTAL 0.46 ng/mL (0.0-4.0)
[2019-06-12 08:11] LABS: FOLIC ACID (FOLATE) SERUM >20 ng/mL ng/mL (>5.38)
[2019-06-12 08:12] LABS: PHOSPHORUS 5.7 mg/dL (2.5-4.9)
[2019-06-12 08:24] LABS: VITAMIN B12 SERUM 871 pg/mL (211-911)
[2019-06-12 08:38] VITALS: BP 107/61
[2019-06-12] MEDS: CALCIUM ACETATE 667MG CAPSULE PO SCH ×3 (08:43→17:04)
[2019-06-12] MEDS: FOLIC ACID/VITAMIN B COMP W-C TABLET PO SCH (08:43)
[2019-06-12] MEDS: KETOROLAC TROMETHAMINE 0.4% OPHTH 5ML LEFTEYE SCH ×4 (08:43→21:55)
[2019-06-12] MEDS: LEVETIRACETAM 500MG/5ML CUP PO SCH ×2 (08:43→21:59)
[2019-06-12] MEDS: MIDODRINE HCL 5MG TABLET PO SCH ×3 (08:43→17:52)
[2019-06-12] MEDS: PREDNISOLONE ACETATE 1% OPHTH DROPS 5ML LEFTEYE SCH ×4 (08:43→21:55)
[2019-06-12] MEDS: INSULIN LISPRO 100 UNITS/ML SUBCUT SCH ×4 (09:00→21:00)
[2019-06-12] MEDS: BLOOD SUGAR DIAGNOSTIC STRIP TEST SCH ×3 (11:15→21:59)
[2019-06-12 20:00] VITALS: BP 138/74
[2019-06-12] MEDS: EPOETIN ALFA 4000UNITS/ML VIAL SUBCUT SCH (21:56)
[2019-06-13] MEDS: BLOOD SUGAR DIAGNOSTIC STRIP TEST SCH ×4 (06:09→21:42)
[2019-06-13 08:10] VITALS: BP 134/76
[2019-06-13] MEDS: INSULIN LISPRO 100 UNITS/ML SUBCUT SCH ×4 (09:00→21:00)
[2019-06-13] MEDS: KETOROLAC TROMETHAMINE 0.4% OPHTH 5ML LEFTEYE SCH ×4 (09:37→21:41)
[2019-06-13] MEDS: FOLIC ACID/VITAMIN B COMP W-C TABLET PO SCH (09:37)
[2019-06-13] MEDS: LEVETIRACETAM 500MG/5ML CUP PO SCH ×2 (09:37→21:42)
[2019-06-13] MEDS: CALCIUM ACETATE 667MG CAPSULE PO SCH ×3 (09:37→17:04)
[2019-06-13] MEDS: MIDODRINE HCL 5MG TABLET PO SCH ×3 (09:37→17:05)
[2019-06-13] MEDS: PREDNISOLONE ACETATE 1% OPHTH DROPS 5ML LEFTEYE SCH ×4 (09:37→21:41)
[2019-06-13 20:00] VITALS: BP 113/74
[2019-06-14] MEDS: BLOOD SUGAR DIAGNOSTIC STRIP TEST SCH ×4 (06:02→21:00)
[2019-06-14 07:04] LABS: BASOPHILS % 1.3 % (0.0-2.0); EOSINOPHILS % 9.5 % (0.0-5.0); HEMOGLOBIN. 9.1 g/dL (14.0-18.0); LYMPHOCYTES % 29.1 % (20.0-50.0); MEAN CORPUSCULAR HEMOGLOBIN 30.8 pg (28.0-32.0); MEAN CORPUSCULAR VOLUME 91.1 fL (80.0-94.0); MONOCYTES % 4.9 % (2.0-8.0); NEUTROPHILS % 55.2 % (40.0-76.0); PLATELET 106 x1000/uL (130-400); RED BLOOD CELL COUNT 2.97 mill/uL (4.7-6.1); RED CELL DISTRIBUTION WIDTH 13.7 % (11.6-14.6)
[2019-06-14] MEDS: INSULIN LISPRO 100 UNITS/ML SUBCUT SCH ×4 (07:37→21:00)
[2019-06-14 07:54] LABS: PHOSPHORUS 5.7 mg/dL (2.5-4.9)
[2019-06-14 08:00] VITALS: BP 141/43
[2019-06-14] MEDS: PREDNISOLONE ACETATE 1% OPHTH DROPS 5ML LEFTEYE SCH ×4 (08:57→21:10)
[2019-06-14] MEDS: KETOROLAC TROMETHAMINE 0.4% OPHTH 5ML LEFTEYE SCH ×4 (08:57→21:10)
[2019-06-14] MEDS: FOLIC ACID/VITAMIN B COMP W-C TABLET PO SCH (08:58)
[2019-06-14] MEDS: CALCIUM ACETATE 667MG CAPSULE PO SCH ×3 (08:58→17:00)
[2019-06-14] MEDS: MIDODRINE HCL 5MG TABLET PO SCH ×3 (08:58→17:00)
[2019-06-14] MEDS: LEVETIRACETAM 500MG TABLET PO SCH ×2 (11:15→21:10)
[2019-06-14 20:00] VITALS: BP 99/65
[2019-06-15 06:44] LABS: BASOPHILS % 1.4 % (0.0-2.0); EOSINOPHILS % 8.1 % (0.0-5.0); HEMATOCRIT. 26.7 % (42.0-52.0); LYMPHOCYTES % 28.2 % (20.0-50.0); MEAN CORPUSCULAR HEMOGLOBIN 30.7 pg (28.0-32.0); MEAN CORPUSCULAR VOLUME 91.1 fL (80.0-94.0); MEAN PLATELET VOLUME 9.5 fl (7.4-10.4); MONOCYTES % 6.4 % (2.0-8.0); NEUTROPHILS % 55.9 % (40.0-76.0); PLATELET 136 x1000/uL (130-400); RED BLOOD CELL COUNT 2.93 mill/uL (4.7-6.1); RED CELL DISTRIBUTION WIDTH 14.2 % (11.6-14.6)
[2019-06-15 08:00] VITALS: BP 99/63
[2019-06-15 08:18] LABS: PHOSPHORUS 6.1 mg/dL (2.5-4.9)
[2019-06-15] MEDS: FOLIC ACID/VITAMIN B COMP W-C TABLET PO SCH (08:29)
[2019-06-15] MEDS: MIDODRINE HCL 5MG TABLET PO SCH ×3 (08:29→16:05)
[2019-06-15] MEDS: CALCIUM ACETATE 667MG CAPSULE PO SCH ×3 (08:29→16:05)
[2019-06-15] MEDS: KETOROLAC TROMETHAMINE 0.4% OPHTH 5ML LEFTEYE SCH ×4 (08:29→22:36)
[2019-06-15] MEDS: PREDNISOLONE ACETATE 1% OPHTH DROPS 5ML LEFTEYE SCH ×4 (08:29→22:36)
[2019-06-15] MEDS: LEVETIRACETAM 500MG TABLET PO SCH ×2 (09:00→22:37)
[2019-06-15 20:00] VITALS: BP 108/57
[2019-06-15] MEDS: EPOETIN ALFA 4000UNITS/ML VIAL SUBCUT SCH (22:36)
[2019-06-16 07:55] VITALS: BP 99/55
[2019-06-16] MEDS: CALCIUM ACETATE 667MG CAPSULE PO SCH (08:40)
[2019-06-16] MEDS: KETOROLAC TROMETHAMINE 0.4% OPHTH 5ML LEFTEYE SCH (08:40)
[2019-06-16] MEDS: LEVETIRACETAM 500MG TABLET PO SCH (08:40)
[2019-06-16] MEDS: PREDNISOLONE ACETATE 1% OPHTH DROPS 5ML LEFTEYE SCH (08:40)
[2019-06-16] MEDS: FOLIC ACID/VITAMIN B COMP W-C TABLET PO SCH (08:40)
[2019-06-16] MEDS: MIDODRINE HCL 5MG TABLET PO SCH (08:40)
[2019-06-16 12:09] VITALS: BP 105/56
[2019-06-17 04:09] LABS: 25-HYDROXY VITAMIN D3 57 ng/mL (.)
== END 2019-06-16 13:13 | disposition home health service (06) | DRG 91 ==
PROVIDERS: ADMIT Physical Medicine & Rehabilitation Spinal Cord Injury Medicine; ATTEND Family Medicine Adult Medicine
PROC: 5A1D70Z Performance of Urinary Filtration, Intermittent, Less than 6 Hours Per Day (ICD-10-PCS; principal; 2019-06-10)
PROC: 5A1D70Z Performance of Urinary Filtration, Intermittent, Less than 6 Hours Per Day (ICD-10-PCS; 2019-06-12)
DX: G92 Toxic encephalopathy (principal); J15.5 Pneumonia due to Escherichia coli; J96.00 Acute respiratory failure, unspecified whether with hypoxia or hypercapnia; N18.6 End stage renal disease; A41.51 Sepsis due to Escherichia coli [E. coli]; I12.0 Hypertensive chronic kidney disease with stage 5 chronic kidney disease or end stage renal disease; K56.699 Other intestinal obstruction unspecified as to partial versus complete obstruction; E87.2 Acidosis; Z16.21 Resistance to vancomycin; M62.82 Rhabdomyolysis; B19.20 Unspecified viral hepatitis C without hepatic coma; E11.22 Type 2 diabetes mellitus with diabetic chronic kidney disease; E11.51 Type 2 diabetes mellitus with diabetic peripheral angiopathy without gangrene; D63.8 Anemia in other chronic diseases classified elsewhere; G40.909 Epilepsy, unspecified, not intractable, without status epilepticus; D69.6 Thrombocytopenia, unspecified; E11.42 Type 2 diabetes mellitus with diabetic polyneuropathy; K52.9 Noninfective gastroenteritis and colitis, unspecified; R53.81 Other malaise; M79.609 Pain in unspecified limb; G54.6 Phantom limb syndrome with pain; B95.62 Methicillin resistant Staphylococcus aureus infection as the cause of diseases classified elsewhere; R13.10 Dysphagia, unspecified; Z53.9 Procedure and treatment not carried out, unspecified reason; I95.89 Other hypotension; L89.156 Pressure-induced deep tissue damage of sacral region; L89.226 Pressure-induced deep tissue damage of left hip; H02.401 Unspecified ptosis of right eyelid; Z86.74 Personal history of sudden cardiac arrest; Z99.2 Dependence on renal dialysis; Z89.611 Acquired absence of right leg above knee; Z86.19 Personal history of other infectious and parasitic diseases; Z79.4 Long term (current) use of insulin; Z79.899 Other long term (current) drug therapy; Z83.3 Family history of diabetes mellitus; Z82.49 Family history of ischemic heart disease and other diseases of the circulatory system
CPT/HCPCS: 36415; 80048; 82306; 82607; 82728; 82746; 82962; 83540; 83550; 83735; 84100; 84134; 84153; 84443; 92523; 92610; 93970; 97110; 97116; 97150; 97162; 97166; 97530; 97535; J0885; J1815; G0103

== ENCOUNTER 2019-10-20 12:11 | Inpatient (IN) | payer MEDICARE, MEDICAID ==
[2019-10-20] VITALS (11 sets, daily range): BP systolic 76–112; BP diastolic 48–69
[~2019-10-20] VITALS: Ht 144.8 cm; Wt 53.1 kg
[~2019-10-20 12:11] MED LIST changes: +ASCO500C18 PO; -ASPI-1158 PO; -CIPR2.5D17 LEFTEYE; -CITR473S PO; +CITR473S4 PO; +INSU100I28 SQ; -LANTUSUD SUBCUT; +MESA800T PO; -MIDO5TAB PO; +MIDO5TAB4 PO
[2019-10-20] MEDS ORDERED: LEVETIRACETAM 500MG PREMIX 100 ML IV ONE (13:00)
[2019-10-20] MEDS ORDERED: SODIUM CHLORIDE 0.9% 500 ML IV ONE ×2 (13:00→14:15)
[2019-10-20 13:30] LABS: BASOPHILS % 0.2 % (0.0-2.0); EOSINOPHILS % 0.1 % (0.0-5.0); HEMATOCRIT. 30.1 % (42.0-52.0); HEMOGLOBIN. 10.1 g/dL (14.0-18.0); LYMPHOCYTES % 10.4 % (20.0-50.0); MEAN CORPUSCULAR HEMOGLOBIN 31.5 pg (28.0-32.0); MEAN CORPUSCULAR VOLUME 93.9 fL (80.0-94.0); MONOCYTES % 8.5 % (2.0-8.0); NEUTROPHILS % 80.8 % (40.0-76.0); PLATELET 51 x1000/uL (130-400); RED BLOOD CELL COUNT 3.21 mill/uL (4.7-6.1); RED CELL DISTRIBUTION WIDTH 14.5 % (11.6-14.6)
[2019-10-20 13:36] LABS: CHLORIDE 101 mEq/L (98-107)
[2019-10-20] MEDS ORDERED: PIPERACILLIN/TAZ 3.375G PREMIX 50 ML IV ONE (14:45)
[2019-10-20] MEDS ORDERED: VANCOMYCIN 1 G PREMIX 200 ML IV ONE (14:45)
[2019-10-20] MEDS ORDERED: VANCOMYCIN 1,000 MG in DEXT 5% WATER 250 ML IV SCH (15:15)
[2019-10-20] MEDS ORDERED: NOREPINEPHRINE 4MG/250ML PMX 250 ML IV ONE (15:30)
[2019-10-20] MEDS ORDERED: HYDROCODONE/ACETAMINOPHEN 5/325MG TABLET PO ONE (16:15)
[2019-10-20] MEDS ORDERED: ONDANSETRON HCL 4MG/2ML INJ IV STA (16:59)
[2019-10-20] MEDS ORDERED: MORPHINE SULFATE 4 MG/ML CPJ (NOT FOR IM USE) IV STA (16:59)
[2019-10-20] MEDS ORDERED: PIPERACILLIN/TAZOBACTAM 3.375 G in DEXTROSE 5% WATER 50 ML IV SCH (18:00)
[2019-10-20] MEDS ORDERED: DEXTROSE 50% WATER 50ML SYRINGE IV PRN (18:00)
[2019-10-20] MEDS ORDERED: ONDANSETRON HCL 4MG/2ML INJ IV PRN (18:00)
[2019-10-20] MEDS ORDERED: LORAZEPAM 2MG/ML CPJ IV PRN (18:15)
[2019-10-20] MEDS: INSULIN LISPRO 100 UNITS/ML SUBCUT SCH ×2 (18:20→21:16)
[2019-10-20] MEDS ORDERED: MIDODRINE HCL 5MG TABLET PO NR (19:19)
[2019-10-20] MEDS ORDERED: KETOROLAC TROMETHAMINE 0.4% OPHTH 5ML LEFTEYE SCH (21:00)
[2019-10-20] MEDS: BLOOD SUGAR DIAGNOSTIC STRIP TEST SCH (21:15)
[2019-10-20] MEDS: LEVETIRACETAM 500MG TABLET PO SCH (21:16)
[2019-10-20] MEDS ORDERED: PHENYLEPHRINE 40 MG in DEXT 5% WATER 246 ML IV PRN (21:27)
[2019-10-20] MEDS ORDERED: GABA-529 MT (22:46)
[2019-10-20] MEDS ORDERED: SYSOS BOTHEYE (22:46)
[2019-10-20] MEDS ORDERED: NEPA1.7D RIGHTEYE (22:46)
[2019-10-20] MEDS: ACETAMINOPHEN 325MG TABLET PO PRN (22:56)
[2019-10-20] MEDS ORDERED: INFLUENZA VIRUS VACCINE(AFLURIA) 0.5ML SYR IM ONE (23:00)
[2019-10-21] VITALS (95 sets, daily range): BP systolic 79–154; BP diastolic 46–91
[2019-10-21] MEDS: PIPERACILLIN/TAZOBACTAM 2.25 G in DEXTROSE 5% WATER 50 ML IV SCH ×2 (03:15→14:44)
[2019-10-21] MEDS ORDERED: PHENYLEPHRINE 40 MG in DEXT 5% WATER 496 ML IV PRN (05:00)
[2019-10-21] MEDS: PHENYLEPHRINE 40 MG in DEXT 5% WATER 246 ML IV PRN ×4 (05:49→22:48)
[2019-10-21 06:30] LABS: BASOPHILS % 0.2 % (0.0-2.0); EOSINOPHILS % 0.5 % (0.0-5.0); HEMATOCRIT. 32.9 % (42.0-52.0); HEMOGLOBIN. 11.2 g/dL (14.0-18.0); LYMPHOCYTES % 8.1 % (20.0-50.0); MEAN CORPUSCULAR HEMOGLOBIN 31.5 pg (28.0-32.0); MEAN CORPUSCULAR VOLUME 92.2 fL (80.0-94.0); MEAN PLATELET VOLUME 11.2 fl (7.4-10.4); MONOCYTES % 10.6 % (2.0-8.0); NEUTROPHILS % 80.6 % (40.0-76.0); PLATELET 76 x1000/uL (130-400); RED BLOOD CELL COUNT 3.56 mill/uL (4.7-6.1); RED CELL DISTRIBUTION WIDTH 14.4 % (11.6-14.6)
[2019-10-21 06:36] LABS: CHLORIDE 99 mEq/L (98-107)
[2019-10-21 06:43] LABS: PHOSPHORUS 4.8 mg/dL (2.5-4.9)
[2019-10-21] MEDS: BLOOD SUGAR DIAGNOSTIC STRIP TEST SCH ×4 (08:28→21:44)
[2019-10-21] MEDS: MIDODRINE HCL 5MG TABLET PO SCH ×3 (08:53→17:35)
[2019-10-21] MEDS: FOLIC ACID/VITAMIN B COMP W-C TABLET PO SCH (08:53)
[2019-10-21] MEDS: CALCIUM ACETATE 667MG CAPSULE PO SCH ×3 (08:53→17:34)
[2019-10-21] MEDS: LEVETIRACETAM 500MG TABLET PO SCH ×2 (08:53→17:34)
[2019-10-21] MEDS: INSULIN LISPRO 100 UNITS/ML SUBCUT SCH ×4 (08:54→21:00)
[2019-10-21] MEDS ORDERED: CITRIC ACID/SODIUM CITRATE SOLN 15ML UDC PO SCH (09:00)
[2019-10-21] MEDS ORDERED: INSULIN GLARGINE UD 100 UNITS/ML SYR SUBCUT SCH ×2 (10:00→22:00)
[2019-10-21] MEDS ORDERED: GABAPENTIN 100MG CAPSULE PO SCH ×2 (13:00→21:00)
[2019-10-21] MEDS: ACETAMINOPHEN 325MG TABLET PO PRN (13:19)
[2019-10-21] MEDS: MESALAMINE 400 MG CAPSULE.DR PO SCH ×2 (14:44→21:44)
[2019-10-22] VITALS (86 sets, daily range): BP systolic 64–122; BP diastolic 41–89
[2019-10-22] MEDS: PIPERACILLIN/TAZOBACTAM 2.25 G in DEXTROSE 5% WATER 50 ML IV SCH ×2 (02:47→14:02)
[2019-10-22 05:11] LABS: BASOPHILS % 0.4 % (0.0-2.0); EOSINOPHILS % 3.1 % (0.0-5.0); HEMATOCRIT. 34.4 % (42.0-52.0); HEMOGLOBIN. 11.7 g/dL (14.0-18.0); LYMPHOCYTES % 14.9 % (20.0-50.0); MEAN CORPUSCULAR HEMOGLOBIN 31.6 pg (28.0-32.0); MEAN CORPUSCULAR VOLUME 92.6 fL (80.0-94.0); MEAN PLATELET VOLUME 10.2 fl (7.4-10.4); MONOCYTES % 8.9 % (2.0-8.0); NEUTROPHILS % 72.7 % (40.0-76.0); PLATELET 73 x1000/uL (130-400); RED BLOOD CELL COUNT 3.72 mill/uL (4.7-6.1)
[2019-10-22 05:16] LABS: CHLORIDE 102 mEq/L (98-107)
[2019-10-22 05:22] LABS: PHOSPHORUS 3.6 mg/dL (2.5-4.9)
[2019-10-22] MEDS: MESALAMINE 400 MG CAPSULE.DR PO SCH ×3 (05:34→21:36)
[2019-10-22] MEDS: BLOOD SUGAR DIAGNOSTIC STRIP TEST SCH ×4 (08:15→21:36)
[2019-10-22] MEDS: LEVETIRACETAM 500MG TABLET PO SCH ×2 (08:32→17:18)
[2019-10-22] MEDS: MIDODRINE HCL 5MG TABLET PO SCH ×3 (08:33→17:19)
[2019-10-22] MEDS: FOLIC ACID/VITAMIN B COMP W-C TABLET PO SCH (08:33)
[2019-10-22] MEDS: CALCIUM ACETATE 667MG CAPSULE PO SCH ×2 (08:33→12:52)
[2019-10-22] MEDS: INSULIN LISPRO 100 UNITS/ML SUBCUT SCH ×4 (08:33→21:47)
[2019-10-22] MEDS: PHENYLEPHRINE 40 MG in DEXT 5% WATER 246 ML IV PRN ×2 (08:34→17:41)
[2019-10-22] MEDS ORDERED: VANCOMYCIN 500 MG PREMIX 100 ML IV SCH (11:00)
[2019-10-22] MEDS: MORPHINE SULFATE 2 MG/ML CPJ (NOT FOR IM USE) IV PRN ×2 (12:53→21:46)
[2019-10-22] MEDS: FAMOTIDINE 20MG TABLET PO SCH (14:02)
[2019-10-22] MEDS: GABAPENTIN 100MG CAPSULE PO SCH (21:36)
[2019-10-23] VITALS (102 sets, daily range): BP systolic 58–150; BP diastolic 31–91
[2019-10-23] MEDS: PIPERACILLIN/TAZOBACTAM 2.25 G in DEXTROSE 5% WATER 50 ML IV SCH ×2 (02:05→15:24)
[2019-10-23] MEDS: PHENYLEPHRINE 40 MG in DEXT 5% WATER 246 ML IV PRN ×3 (02:18→15:25)
[2019-10-23] MEDS: MESALAMINE 400 MG CAPSULE.DR PO SCH ×3 (05:52→21:12)
[2019-10-23 05:55] LABS: BASOPHILS % 0.3 % (0.0-2.0); EOSINOPHILS % 5.4 % (0.0-5.0); HEMATOCRIT. 33.1 % (42.0-52.0); HEMOGLOBIN. 11.2 g/dL (14.0-18.0); LYMPHOCYTES % 16.6 % (20.0-50.0); MEAN CORPUSCULAR HEMOGLOBIN 31.5 pg (28.0-32.0); MEAN CORPUSCULAR VOLUME 93.3 fL (80.0-94.0); MEAN PLATELET VOLUME 9.9 fl (7.4-10.4); MONOCYTES % 9.2 % (2.0-8.0); NEUTROPHILS % 68.5 % (40.0-76.0); PLATELET 65 x1000/uL (130-400); RED BLOOD CELL COUNT 3.55 mill/uL (4.7-6.1); RED CELL DISTRIBUTION WIDTH 14.9 % (11.6-14.6)
[2019-10-23] MEDS: MORPHINE SULFATE 2 MG/ML CPJ (NOT FOR IM USE) IV PRN ×4 (05:57→22:59)
[2019-10-23 06:50] LABS: CHLORIDE 99 mEq/L (98-107)
[2019-10-23 06:57] LABS: PHOSPHORUS 4.3 mg/dL (2.5-4.9)
[2019-10-23] MEDS: FOLIC ACID/VITAMIN B COMP W-C TABLET PO SCH (08:17)
[2019-10-23] MEDS: LEVETIRACETAM 500MG TABLET PO SCH ×2 (08:17→18:16)
[2019-10-23] MEDS: FAMOTIDINE 20MG TABLET PO SCH (08:17)
[2019-10-23] MEDS: MIDODRINE HCL 5MG TABLET PO SCH ×3 (08:17→18:16)
[2019-10-23] MEDS: INSULIN LISPRO 100 UNITS/ML SUBCUT SCH ×4 (08:20→21:00)
[2019-10-23] MEDS: BLOOD SUGAR DIAGNOSTIC STRIP TEST SCH ×4 (08:33→21:12)
[2019-10-23] MEDS: DIPHENOXYLATE/ATROPINE 2.5/0.025MG TABLET PO PRN ×2 (15:25→22:59)
[2019-10-23] MEDS: GABAPENTIN 100MG CAPSULE PO SCH (21:12)
[2019-10-24] VITALS (92 sets, daily range): BP systolic 75–127; BP diastolic 38–85
[2019-10-24] MEDS: PHENYLEPHRINE 40 MG in DEXT 5% WATER 246 ML IV PRN ×3 (01:38→23:25)
[2019-10-24] MEDS: PIPERACILLIN/TAZOBACTAM 2.25 G in DEXTROSE 5% WATER 50 ML IV SCH ×2 (02:04→14:34)
[2019-10-24] MEDS: MESALAMINE 400 MG CAPSULE.DR PO SCH ×3 (05:00→21:31)
[2019-10-24 05:25] LABS: BASOPHILS % 0.3 % (0.0-2.0); EOSINOPHILS % 5.5 % (0.0-5.0); HEMOGLOBIN. 9.9 g/dL (14.0-18.0); LYMPHOCYTES % 20.3 % (20.0-50.0); MEAN CORPUSCULAR HEMOGLOBIN 31.4 pg (28.0-32.0); MEAN CORPUSCULAR VOLUME 92.2 fL (80.0-94.0); MEAN PLATELET VOLUME 10.9 fl (7.4-10.4); MONOCYTES % 10.7 % (2.0-8.0); NEUTROPHILS % 63.2 % (40.0-76.0); PLATELET 53 x1000/uL (130-400); RED BLOOD CELL COUNT 3.15 mill/uL (4.7-6.1); RED CELL DISTRIBUTION WIDTH 14.6 % (11.6-14.6)
[2019-10-24 05:40] LABS: CHLORIDE 99 mEq/L (98-107)
[2019-10-24] MEDS: BLOOD SUGAR DIAGNOSTIC STRIP TEST SCH ×4 (07:50→21:32)
[2019-10-24] MEDS: MIDODRINE HCL 5MG TABLET PO SCH ×3 (08:58→18:03)
[2019-10-24] MEDS: FAMOTIDINE 20MG TABLET PO SCH (08:58)
[2019-10-24] MEDS: FOLIC ACID/VITAMIN B COMP W-C TABLET PO SCH (08:58)
[2019-10-24] MEDS: LEVETIRACETAM 500MG TABLET PO SCH ×2 (08:59→18:03)
[2019-10-24] MEDS: INSULIN LISPRO 100 UNITS/ML SUBCUT SCH ×4 (08:59→21:32)
[2019-10-24] MEDS: MORPHINE SULFATE 2 MG/ML CPJ (NOT FOR IM USE) IV PRN (18:03)
[2019-10-24] MEDS: GABAPENTIN 100MG CAPSULE PO SCH (21:31)
[2019-10-25] VITALS (89 sets, daily range): BP systolic 60–127; BP diastolic 26–73
[2019-10-25] MEDS: PIPERACILLIN/TAZOBACTAM 2.25 G in DEXTROSE 5% WATER 50 ML IV SCH ×2 (03:06→14:34)
[2019-10-25 05:09] LABS: BARBITURATE SCREEN Negative ug/mL (Cutoff:0.1); BENZODIAZEPINE SCREEN Negative ng/mL (Cutoff:20); OPIATES SCREEN Negative ng/mL (Cutoff:5); PHENCYCLIDINE SCREEN Negative ng/mL (Cutoff:8)
[2019-10-25] MEDS: MESALAMINE 400 MG CAPSULE.DR PO SCH ×3 (05:25→21:13)
[2019-10-25 06:37] LABS: BASOPHILS % 0.2 % (0.0-2.0); EOSINOPHILS % 4.6 % (0.0-5.0); HEMATOCRIT. 28.8 % (42.0-52.0); HEMOGLOBIN. 9.8 g/dL (14.0-18.0); LYMPHOCYTES % 21.4 % (20.0-50.0); MEAN CORPUSCULAR HEMOGLOBIN 31.5 pg (28.0-32.0); MEAN CORPUSCULAR VOLUME 92.1 fL (80.0-94.0); MEAN PLATELET VOLUME 10.4 fl (7.4-10.4); MONOCYTES % 14.2 % (2.0-8.0); NEUTROPHILS % 59.6 % (40.0-76.0); PLATELET 64 x1000/uL (130-400); RED BLOOD CELL COUNT 3.13 mill/uL (4.7-6.1); RED CELL DISTRIBUTION WIDTH 14.4 % (11.6-14.6)
[2019-10-25 07:19] LABS: CHLORIDE 96 mEq/L (98-107)
[2019-10-25] MEDS: BLOOD SUGAR DIAGNOSTIC STRIP TEST SCH ×4 (08:05→21:27)
[2019-10-25] MEDS: FAMOTIDINE 20MG TABLET PO SCH (08:16)
[2019-10-25] MEDS: LEVETIRACETAM 500MG TABLET PO SCH ×2 (08:16→17:15)
[2019-10-25] MEDS: FOLIC ACID/VITAMIN B COMP W-C TABLET PO SCH (08:16)
[2019-10-25] MEDS: MIDODRINE HCL 5MG TABLET PO SCH ×3 (08:16→17:16)
[2019-10-25] MEDS: INSULIN LISPRO 100 UNITS/ML SUBCUT SCH ×4 (08:19→21:16)
[2019-10-25] MEDS: MORPHINE SULFATE 2 MG/ML CPJ (NOT FOR IM USE) IV PRN (09:48)
[2019-10-25] MEDS ORDERED: PHENYLEPHRINE 40 MG in SODIUM CHLORIDE 0.9% 246 ML IV PRN (12:12)
[2019-10-25] MEDS: PHENYLEPHRINE 40 MG in DEXT 5% WATER 246 ML IV PRN (13:17)
[2019-10-25] MEDS: GABAPENTIN 100MG CAPSULE PO SCH (21:13)
[2019-10-26] VITALS (90 sets, daily range): BP systolic 73–149; BP diastolic 23–86
[2019-10-26] MEDS: PIPERACILLIN/TAZOBACTAM 2.25 G in DEXTROSE 5% WATER 50 ML IV SCH ×2 (03:00→14:53)
[2019-10-26] MEDS: MESALAMINE 400 MG CAPSULE.DR PO SCH ×3 (06:11→22:21)
[2019-10-26 06:27] LABS: BASOPHILS % 0.5 % (0.0-2.0); EOSINOPHILS % 3.5 % (0.0-5.0); HEMATOCRIT. 29.2 % (42.0-52.0); HEMOGLOBIN. 9.9 g/dL (14.0-18.0); LYMPHOCYTES % 19.5 % (20.0-50.0); MEAN CORPUSCULAR HEMOGLOBIN 31.2 pg (28.0-32.0); MEAN CORPUSCULAR VOLUME 92.3 fL (80.0-94.0); MEAN PLATELET VOLUME 9.8 fl (7.4-10.4); MONOCYTES % 11.9 % (2.0-8.0); NEUTROPHILS % 64.6 % (40.0-76.0); PLATELET 93 x1000/uL (130-400); RED BLOOD CELL COUNT 3.17 mill/uL (4.7-6.1); RED CELL DISTRIBUTION WIDTH 14.9 % (11.6-14.6)
[2019-10-26] MEDS: CALCIUM CARBONATE 500MG TABLET CHEW PO SCH ×3 (08:04→16:35)
[2019-10-26] MEDS: LEVETIRACETAM 500MG TABLET PO SCH ×2 (08:04→16:35)
[2019-10-26] MEDS: INSULIN LISPRO 100 UNITS/ML SUBCUT SCH ×4 (08:04→21:19)
[2019-10-26] MEDS: BLOOD SUGAR DIAGNOSTIC STRIP TEST SCH ×4 (08:04→21:14)
[2019-10-26] MEDS: MIDODRINE HCL 5MG TABLET PO SCH ×3 (08:04→16:36)
[2019-10-26] MEDS: FAMOTIDINE 20MG TABLET PO SCH (08:05)
[2019-10-26] MEDS: FLUDROCORTISONE ACETATE 0.1MG TABLET PO SCH (08:05)
[2019-10-26] MEDS: FOLIC ACID/VITAMIN B COMP W-C TABLET PO SCH (08:05)
[2019-10-26] MEDS: LACTOBACILLUS GG CAPSULE PO SCH (10:39)
[2019-10-26] MEDS: INSULIN GLARGINE UD 100 UNITS/ML SYR SUBCUT SCH (11:01)
[2019-10-26] MEDS: ACETAMINOPHEN 325MG TABLET PO PRN (11:04)
[2019-10-26] MEDS: GABAPENTIN 100MG CAPSULE PO SCH (21:14)
[2019-10-26] MEDS ORDERED: PHENYLEPHRINE 40 MG in SODIUM CHLORIDE 0.9% 246 ML IV PRN (22:00)
[2019-10-27] VITALS (86 sets, daily range): BP systolic 70–162; BP diastolic 25–85
[2019-10-27] MEDS: PIPERACILLIN/TAZOBACTAM 2.25 G in DEXTROSE 5% WATER 50 ML IV SCH ×2 (02:37→14:25)
[2019-10-27] MEDS: EPOETIN ALFA 4000UNITS/ML VIAL SUBCUT SCH (02:50)
[2019-10-27] MEDS: MORPHINE SULFATE 2 MG/ML CPJ (NOT FOR IM USE) IV PRN ×2 (02:59→11:33)
[2019-10-27] MEDS: MESALAMINE 400 MG CAPSULE.DR PO SCH ×3 (06:28→22:59)
[2019-10-27 06:42] LABS: HEMATOCRIT 29.1 % (42.0-52.0); HEMOGLOBIN 9.8 g/dL (14.0-18.0); MEAN CORPUSCULAR HEMOGLOBIN 30.7 pg (28.0-32.0); MEAN CORPUSCULAR VOLUME 91.5 fL (80.0-94.0); PLATELET 114 x1000/uL (130-400); RED BLOOD CELL COUNT 3.18 mill/uL (4.7-6.1); RED CELL DISTRIBUTION WIDTH 14.6 % (11.6-14.6)
[2019-10-27] MEDS: BLOOD SUGAR DIAGNOSTIC STRIP TEST SCH ×4 (07:50→21:48)
[2019-10-27] MEDS: INSULIN LISPRO 100 UNITS/ML SUBCUT SCH ×4 (07:53→21:00)
[2019-10-27] MEDS: FAMOTIDINE 20MG TABLET PO SCH (08:07)
[2019-10-27] MEDS: LACTOBACILLUS GG CAPSULE PO SCH (08:07)
[2019-10-27] MEDS: LEVETIRACETAM 500MG TABLET PO SCH ×2 (08:07→17:00)
[2019-10-27] MEDS: CALCIUM CARBONATE 500MG TABLET CHEW PO SCH ×3 (08:07→17:00)
[2019-10-27] MEDS: FLUDROCORTISONE ACETATE 0.1MG TABLET PO SCH (08:07)
[2019-10-27] MEDS: FOLIC ACID/VITAMIN B COMP W-C TABLET PO SCH (08:07)
[2019-10-27] MEDS: MIDODRINE HCL 5MG TABLET PO SCH ×3 (08:07→17:00)
[2019-10-27] MEDS: INSULIN GLARGINE UD 100 UNITS/ML SYR SUBCUT SCH (10:52)
[2019-10-27] MEDS: GABAPENTIN 100MG CAPSULE PO SCH (21:54)
[2019-10-28] VITALS (94 sets, daily range): BP systolic 73–133; BP diastolic 36–81
[2019-10-28] MEDS: MORPHINE SULFATE 2 MG/ML CPJ (NOT FOR IM USE) IV PRN ×3 (00:13→23:33)
[2019-10-28] MEDS: PIPERACILLIN/TAZOBACTAM 2.25 G in DEXTROSE 5% WATER 50 ML IV SCH ×2 (03:14→14:40)
[2019-10-28] MEDS: MESALAMINE 400 MG CAPSULE.DR PO SCH ×3 (06:00→21:58)
[2019-10-28 06:16] LABS: CHLORIDE 105 mEq/L (98-107)
[2019-10-28 06:21] LABS: BASOPHILS % 0.6 % (0.0-2.0); EOSINOPHILS % 4.1 % (0.0-5.0); HEMATOCRIT. 24.8 % (42.0-52.0); HEMOGLOBIN. 8.3 g/dL (14.0-18.0); LYMPHOCYTES % 22.3 % (20.0-50.0); MEAN CORPUSCULAR HEMOGLOBIN 31.2 pg (28.0-32.0); MEAN CORPUSCULAR VOLUME 92.6 fL (80.0-94.0); MEAN PLATELET VOLUME 10.2 fl (7.4-10.4); MONOCYTES % 8.7 % (2.0-8.0); NEUTROPHILS % 64.3 % (40.0-76.0); PLATELET 114 x1000/uL (130-400); RED BLOOD CELL COUNT 2.67 mill/uL (4.7-6.1); RED CELL DISTRIBUTION WIDTH 14.6 % (11.6-14.6)
[2019-10-28 06:23] LABS: PHOSPHORUS 4.9 mg/dL (2.5-4.9)
[2019-10-28] MEDS: INSULIN LISPRO 100 UNITS/ML SUBCUT SCH ×4 (07:48→20:11)
[2019-10-28] MEDS: BLOOD SUGAR DIAGNOSTIC STRIP TEST SCH ×4 (07:48→20:11)
[2019-10-28] MEDS: FAMOTIDINE 20MG TABLET PO SCH (08:46)
[2019-10-28] MEDS: LEVETIRACETAM 500MG TABLET PO SCH ×2 (08:46→17:50)
[2019-10-28] MEDS: FLUDROCORTISONE ACETATE 0.1MG TABLET PO SCH (08:46)
[2019-10-28] MEDS: LACTOBACILLUS GG CAPSULE PO SCH (08:46)
[2019-10-28] MEDS: FOLIC ACID/VITAMIN B COMP W-C TABLET PO SCH (08:46)
[2019-10-28] MEDS: CALCIUM CARBONATE 500MG TABLET CHEW PO SCH ×3 (08:46→17:51)
[2019-10-28] MEDS: MIDODRINE HCL 5MG TABLET PO SCH ×3 (08:46→17:51)
[2019-10-28] MEDS: INSULIN GLARGINE UD 100 UNITS/ML SYR SUBCUT SCH (11:07)
[2019-10-28] MEDS ORDERED: SODIUM CHLORIDE 0.9% 250 ML IV ONE (12:00)
[2019-10-28] MEDS: EPOETIN ALFA 4000UNITS/ML VIAL SUBCUT SCH (20:19)
[2019-10-28] MEDS: GABAPENTIN 100MG CAPSULE PO SCH (20:19)
[2019-10-29] VITALS (38 sets, daily range): BP systolic 71–129; BP diastolic 34–81
[2019-10-29] MEDS ORDERED: PIPERACILLIN/TAZOBACTAM 2.25 G in DEXTROSE 5% WATER 50 ML IV SCH (03:00)
[2019-10-29] MEDS: MESALAMINE 400 MG CAPSULE.DR PO SCH ×3 (05:27→22:37)
[2019-10-29] MEDS: MORPHINE SULFATE 2 MG/ML CPJ (NOT FOR IM USE) IV PRN ×2 (05:35→22:54)
[2019-10-29 05:44] LABS: BASOPHILS % 0.6 % (0.0-2.0); EOSINOPHILS % 3.8 % (0.0-5.0); HEMATOCRIT. 25.5 % (42.0-52.0); HEMOGLOBIN. 8.4 g/dL (14.0-18.0); LYMPHOCYTES % 21.4 % (20.0-50.0); MEAN CORPUSCULAR HEMOGLOBIN 30.5 pg (28.0-32.0); MEAN CORPUSCULAR VOLUME 92.7 fL (80.0-94.0); MEAN PLATELET VOLUME 9.7 fl (7.4-10.4); MONOCYTES % 7.2 % (2.0-8.0); PLATELET 154 x1000/uL (130-400); RED BLOOD CELL COUNT 2.75 mill/uL (4.7-6.1); RED CELL DISTRIBUTION WIDTH 14.9 % (11.6-14.6)
[2019-10-29] MEDS: BLOOD SUGAR DIAGNOSTIC STRIP TEST SCH ×4 (07:50→21:00)
[2019-10-29] MEDS: INSULIN LISPRO 100 UNITS/ML SUBCUT SCH ×4 (08:20→21:00)
[2019-10-29] MEDS: MIDODRINE HCL 5MG TABLET PO SCH ×3 (08:30→17:38)
[2019-10-29] MEDS: FOLIC ACID/VITAMIN B COMP W-C TABLET PO SCH (08:30)
[2019-10-29] MEDS: LACTOBACILLUS GG CAPSULE PO SCH (08:30)
[2019-10-29] MEDS: FLUDROCORTISONE ACETATE 0.1MG TABLET PO SCH (08:30)
[2019-10-29] MEDS: CALCIUM CARBONATE 500MG TABLET CHEW PO SCH ×3 (08:30→17:38)
[2019-10-29] MEDS: LEVETIRACETAM 500MG TABLET PO SCH ×2 (08:30→17:38)
[2019-10-29] MEDS: FAMOTIDINE 20MG TABLET PO SCH (08:30)
[2019-10-29] MEDS: INSULIN GLARGINE UD 100 UNITS/ML SYR SUBCUT SCH (09:25)
[2019-10-29] MEDS: DIPHENHYDRAMINE 50MG CAPSULE PO PRN (12:02)
[2019-10-29] MEDS: PANTOPRAZOLE 40MG DR TABLET PO SCH ×2 (12:02→22:32)
[2019-10-29 15:40] LABS: TOTAL IRON BINDING CAPACITY 140 ug/dL (250-450)
[2019-10-29 15:53] LABS: FERRITIN 879 ng/mL (22-322)
[2019-10-29 15:55] LABS: FOLIC ACID (FOLATE) SERUM >20 ng/mL ng/mL (>5.38)
[2019-10-29] MEDS ORDERED: SODIUM CHLORIDE 0.9% 500 ML IV ONE ×3 (16:00→17:00)
[2019-10-29 16:06] LABS: VITAMIN B12 SERUM 1249 pg/mL (211-911)
[2019-10-29] MEDS: GABAPENTIN 100MG CAPSULE PO SCH (22:32)
[2019-10-30] VITALS (13 sets, daily range): BP systolic 98–139; BP diastolic 55–87
[2019-10-30] MEDS: MESALAMINE 400 MG CAPSULE.DR PO SCH ×3 (06:44→21:13)
[2019-10-30] MEDS: MORPHINE SULFATE 2 MG/ML CPJ (NOT FOR IM USE) IV PRN ×3 (06:44→22:23)
[2019-10-30 06:45] LABS: BASOPHILS % 0.2 % (0.0-2.0); EOSINOPHILS % 1.2 % (0.0-5.0); HEMATOCRIT. 24.9 % (42.0-52.0); HEMOGLOBIN. 8.5 g/dL (14.0-18.0); LYMPHOCYTES % 8.2 % (20.0-50.0); MEAN CORPUSCULAR HEMOGLOBIN 31.1 pg (28.0-32.0); MEAN CORPUSCULAR VOLUME 91.3 fL (80.0-94.0); MEAN PLATELET VOLUME 8.7 fl (7.4-10.4); MONOCYTES % 4.1 % (2.0-8.0); NEUTROPHILS % 86.3 % (40.0-76.0); PLATELET 163 x1000/uL (130-400); RED BLOOD CELL COUNT 2.73 mill/uL (4.7-6.1)
[2019-10-30] MEDS: INSULIN LISPRO 100 UNITS/ML SUBCUT SCH ×4 (06:51→20:34)
[2019-10-30] MEDS: BLOOD SUGAR DIAGNOSTIC STRIP TEST SCH ×4 (06:51→20:14)
[2019-10-30] MEDS: PANTOPRAZOLE 40MG DR TABLET PO SCH ×2 (06:54→20:14)
[2019-10-30] MEDS: CALCIUM CARBONATE 500MG TABLET CHEW PO SCH ×3 (08:23→18:08)
[2019-10-30] MEDS: FOLIC ACID/VITAMIN B COMP W-C TABLET PO SCH (08:24)
[2019-10-30] MEDS: MIDODRINE HCL 5MG TABLET PO SCH ×3 (08:24→18:08)
[2019-10-30] MEDS: LEVETIRACETAM 500MG TABLET PO SCH ×2 (08:24→18:08)
[2019-10-30] MEDS: FLUDROCORTISONE ACETATE 0.1MG TABLET PO SCH (08:24)
[2019-10-30] MEDS: LACTOBACILLUS GG CAPSULE PO SCH (08:24)
[2019-10-30] MEDS: DIPHENHYDRAMINE 50MG CAPSULE PO PRN (08:24)
[2019-10-30] MEDS: INSULIN GLARGINE UD 100 UNITS/ML SYR SUBCUT SCH (10:56)
[2019-10-30] MEDS: LACTULOSE 20G/30ML UDC PO SCH ×3 (12:34→20:14)
[2019-10-30] MEDS: GABAPENTIN 100MG CAPSULE PO SCH (20:14)
[2019-10-30] MEDS: EPOETIN ALFA 4000UNITS/ML VIAL SUBCUT SCH (21:13)
[2019-10-31] VITALS (11 sets, daily range): BP systolic 106–149; BP diastolic 55–85
[2019-10-31] MEDS: PANTOPRAZOLE 40MG DR TABLET PO SCH ×2 (05:55→20:16)
[2019-10-31] MEDS: MORPHINE SULFATE 2 MG/ML CPJ (NOT FOR IM USE) IV PRN ×4 (05:56→22:55)
[2019-10-31] MEDS: BLOOD SUGAR DIAGNOSTIC STRIP TEST SCH ×4 (05:56→20:12)
[2019-10-31] MEDS: MESALAMINE 400 MG CAPSULE.DR PO SCH ×3 (06:00→21:03)
[2019-10-31] MEDS: INSULIN LISPRO 100 UNITS/ML SUBCUT SCH ×2 (06:07→12:16)
[2019-10-31 06:45] LABS: BASOPHILS % 0.4 % (0.0-2.0); EOSINOPHILS % 1.1 % (0.0-5.0); HEMATOCRIT. 23.6 % (42.0-52.0); HEMOGLOBIN. 7.9 g/dL (14.0-18.0); LYMPHOCYTES % 12.4 % (20.0-50.0); MEAN CORPUSCULAR HEMOGLOBIN 30.6 pg (28.0-32.0); MEAN CORPUSCULAR VOLUME 91.9 fL (80.0-94.0); MEAN PLATELET VOLUME 9.9 fl (7.4-10.4); MONOCYTES % 5.5 % (2.0-8.0); NEUTROPHILS % 80.6 % (40.0-76.0); PLATELET 151 x1000/uL (130-400); RED BLOOD CELL COUNT 2.56 mill/uL (4.7-6.1); RED CELL DISTRIBUTION WIDTH 14.6 % (11.6-14.6)
[2019-10-31] MEDS: FLUDROCORTISONE ACETATE 0.1MG TABLET PO SCH (08:08)
[2019-10-31] MEDS: LACTOBACILLUS GG CAPSULE PO SCH (08:08)
[2019-10-31] MEDS: FOLIC ACID/VITAMIN B COMP W-C TABLET PO SCH (08:08)
[2019-10-31] MEDS: CALCIUM CARBONATE 500MG TABLET CHEW PO SCH ×3 (08:08→17:45)
[2019-10-31] MEDS: LEVETIRACETAM 500MG TABLET PO SCH ×2 (08:08→17:45)
[2019-10-31] MEDS: MIDODRINE HCL 5MG TABLET PO SCH ×3 (08:09→17:46)
[2019-10-31] MEDS: INSULIN GLARGINE UD 100 UNITS/ML SYR SUBCUT SCH (10:00)
[2019-10-31] MEDS: DIPHENHYDRAMINE 50MG CAPSULE PO PRN (10:01)
[2019-10-31] MEDS: ACETAMINOPHEN 325MG TABLET PO PRN (13:06)
[2019-10-31] MEDS: GABAPENTIN 100MG CAPSULE PO SCH (20:16)
[2019-11-01] VITALS (23 sets, daily range): BP systolic 86–125; BP diastolic 52–80
[2019-11-01] MEDS: MESALAMINE 400 MG CAPSULE.DR PO SCH ×2 (05:53→13:07)
[2019-11-01] MEDS: PANTOPRAZOLE 40MG DR TABLET PO SCH (05:53)
[2019-11-01] MEDS: BLOOD SUGAR DIAGNOSTIC STRIP TEST SCH ×3 (05:53→17:59)
[2019-11-01] MEDS: MORPHINE SULFATE 2 MG/ML CPJ (NOT FOR IM USE) IV PRN ×2 (06:32→13:08)
[2019-11-01 06:43] LABS: BASOPHILS % 0.3 % (0.0-2.0); EOSINOPHILS % 0.7 % (0.0-5.0); HEMATOCRIT. 21.6 % (42.0-52.0); HEMOGLOBIN. 7.2 g/dL (14.0-18.0); LYMPHOCYTES % 11.1 % (20.0-50.0); MEAN CORPUSCULAR HEMOGLOBIN 30.6 pg (28.0-32.0); MEAN CORPUSCULAR VOLUME 91.8 fL (80.0-94.0); MEAN PLATELET VOLUME 9.9 fl (7.4-10.4); MONOCYTES % 7.1 % (2.0-8.0); NEUTROPHILS % 80.8 % (40.0-76.0); PLATELET 153 x1000/uL (130-400); RED BLOOD CELL COUNT 2.36 mill/uL (4.7-6.1); RED CELL DISTRIBUTION WIDTH 14.8 % (11.6-14.6)
[2019-11-01] MEDS: CALCIUM CARBONATE 500MG TABLET CHEW PO SCH ×2 (08:07→13:07)
[2019-11-01] MEDS: MIDODRINE HCL 5MG TABLET PO SCH ×3 (08:08→18:19)
[2019-11-01] MEDS: LEVETIRACETAM 500MG TABLET PO SCH (08:08)
[2019-11-01] MEDS: FLUDROCORTISONE ACETATE 0.1MG TABLET PO SCH (08:08)
[2019-11-01] MEDS: LACTOBACILLUS GG CAPSULE PO SCH (08:08)
[2019-11-01] MEDS: FOLIC ACID/VITAMIN B COMP W-C TABLET PO SCH (08:08)
[2019-11-01] MEDS: INSULIN GLARGINE UD 100 UNITS/ML SYR SUBCUT SCH (11:08)
[2019-11-01] MEDS: ACETAMINOPHEN 325MG TABLET PO PRN (11:09)
[2019-11-01] MEDS ORDERED: PIPERACILLIN/TAZOBACTAM 2.25 G in DEXTROSE 5% WATER 50 ML IV SCH (14:00)
[2019-11-01] MEDS ORDERED: DEXTROSE 50% WATER 50ML SYRINGE IV PRN (14:00)
[2019-11-01] MEDS ORDERED: INSULIN LISPRO 100 UNITS/ML SUBCUT SCH (17:20)
[2019-11-01 17:35] LABS: BASOPHILS % 0.4 % (0.0-2.0); EOSINOPHILS % 0.4 % (0.0-5.0); HEMATOCRIT. 21.6 % (42.0-52.0); HEMOGLOBIN. 7.3 g/dL (14.0-18.0); LYMPHOCYTES % 10.3 % (20.0-50.0); MEAN CORPUSCULAR VOLUME 92.4 fL (80.0-94.0); MEAN PLATELET VOLUME 9.1 fl (7.4-10.4); MONOCYTES % 8.6 % (2.0-8.0); NEUTROPHILS % 80.3 % (40.0-76.0); PLATELET 193 x1000/uL (130-400); RED BLOOD CELL COUNT 2.34 mill/uL (4.7-6.1); RED CELL DISTRIBUTION WIDTH 15.1 % (11.6-14.6)
[2019-11-01] MEDS: INSULIN LISPRO 100 UNITS/ML SUBCUT SCH (17:59)
[2019-11-01 18:05] LABS: HEMATOCRIT 23.1 % (42.0-52.0); HEMOGLOBIN 7.7 g/dL (14.0-18.0); MEAN CORPUSCULAR HEMOGLOBIN 30.6 pg (28.0-32.0); MEAN CORPUSCULAR VOLUME 92.4 fL (80.0-94.0); PLATELET 153 x1000/uL (130-400); RED CELL DISTRIBUTION WIDTH 14.9 % (11.6-14.6)
[2019-11-01 18:11] LABS: CHLORIDE 101 mEq/L (98-107)
[2019-11-01 18:19] LABS: CREATINE KINASE 43 IU/L (39-308)
[2019-11-01 18:21] LABS: CREATINE KINASE MB FRACTION 1.4 ng/mL (0.5-3.6)
[2019-11-01 18:23] LABS: BG BASE EXCESS -1.3 mmol/L (-2.0-2.0); BG CARBOXYHEMOGLOBIN 0.3 % (0.5-1.5); BG FRACTION INSPIRED OXYGEN 100; BG HCO3 ACT 22.7 mmol/L (22.0-26.0); BG METHEMOGLOBIN 0.3 % (0.0-1.5); BG OXYHEMOGLOBIN 98.4 % (94.0-97.0); BG PCO2 34.5 mmHg (35.0-45.0); BG PH 7.437 (7.350-7.450); BG PO2 317.9 mmHg (75.0-100.0); BG SAMPLE SITE LEFT RADIAL; BG TIDAL VOLUME(mL) 500 mL; BG VENT MODE VENT - A/C; BG VENT RATE 16 set
[2019-11-01] MEDS: EPOETIN ALFA 4000UNITS/ML VIAL SUBCUT SCH (21:52)
[2019-11-02] VITALS (76 sets, daily range): BP systolic 75–141; BP diastolic 49–83
[2019-11-02] MEDS: BLOOD SUGAR DIAGNOSTIC STRIP TEST SCH ×4 (00:06→17:34)
[2019-11-02] MEDS: MESALAMINE 400 MG CAPSULE.DR PO SCH ×4 (02:16→22:00)
[2019-11-02] MEDS: IPRATROPIUM/ALBUTEROL 0.5-3(2.5)MG/3ML NEB HHN SCH ×4 (02:22→20:19)
[2019-11-02] MEDS: PROPOFOL 10MG/ML 100ML 100 ML IV PRN ×3 (05:38→22:05)
[2019-11-02] MEDS: INSULIN LISPRO 100 UNITS/ML SUBCUT SCH ×4 (05:39→17:34)
[2019-11-02 05:45] LABS: BASOPHILS % 0.3 % (0.0-2.0); EOSINOPHILS % 0.4 % (0.0-5.0); HEMATOCRIT. 24.2 % (42.0-52.0); LYMPHOCYTES % 10.2 % (20.0-50.0); MEAN CORPUSCULAR HEMOGLOBIN 30.3 pg (28.0-32.0); MEAN CORPUSCULAR VOLUME 91.3 fL (80.0-94.0); MEAN PLATELET VOLUME 9.5 fl (7.4-10.4); NEUTROPHILS % 78.1 % (40.0-76.0); PLATELET 182 x1000/uL (130-400); RED BLOOD CELL COUNT 2.65 mill/uL (4.7-6.1); RED CELL DISTRIBUTION WIDTH 14.9 % (11.6-14.6)
[2019-11-02 05:59] LABS: PHOSPHORUS 4.8 mg/dL (2.5-4.9)
[2019-11-02] MEDS ORDERED: PHENYLEPHRINE 40 MG in SODIUM CHLORIDE 0.9% 246 ML IV PRN (08:00)
[2019-11-02] MEDS: PANTOPRAZOLE SODIUM 40 MG/VIAL IV SCH (09:26)
[2019-11-02] MEDS: LACTOBACILLUS GG CAPSULE PO SCH (09:27)
[2019-11-02] MEDS: MIDODRINE HCL 5MG TABLET PO SCH ×3 (09:27→17:34)
[2019-11-02] MEDS: FLUDROCORTISONE ACETATE 0.1MG TABLET PO SCH (09:27)
[2019-11-02 09:53] LABS: BG BASE EXCESS -1.5 mmol/L (-2.0-2.0); BG CARBOXYHEMOGLOBIN 0.3 % (0.5-1.5); BG METHEMOGLOBIN 0.3 % (0.0-1.5); BG OXYHEMOGLOBIN 98.4 % (94.0-97.0); BG PCO2 31.8 mmHg (35.0-45.0); BG PH 7.457 (7.350-7.450); BG PO2 357.8 mmHg (75.0-100.0); BG SAMPLE SITE LEFT RADIAL; BG TIDAL VOLUME(mL) 500 mL; BG TOTAL HEMOGLOBIN 8.3 g/dL (12.0-18.0); BG VENT MODE VENT - A/C; BG VENT RATE 14 set
[2019-11-02] MEDS: PIPERACILLIN/TAZOBACTAM 2.25 G in DEXTROSE 5% WATER 50 ML IV SCH ×2 (12:18→17:33)
[2019-11-02 12:27] LABS: C REACTIVE PROTEIN QUANT > 190.0 mg/L (0.0-3.0)
[2019-11-02 14:39] LABS: BG BASE EXCESS 1.6 mmol/L (-2.0-2.0); BG CARBOXYHEMOGLOBIN 0.3 % (0.5-1.5); BG DEOXYHEMOGLOBIN 5.7 % (0.0-5.0); BG HCO3 ACT 25.1 mmol/L (22.0-26.0); BG OXYGEN SATURATION 94.3 % (92.0-98.5); BG PCO2 34.9 mmHg (35.0-45.0); BG PH 7.474 (7.350-7.450); BG SAMPLE SITE LEFT RADIAL; BG TIDAL VOLUME(mL) 500 mL; BG TOTAL HEMOGLOBIN 9.1 g/dL (12.0-18.0); BG VENT MODE VENT - A/C; BG VENT RATE 14 set
[2019-11-02] MEDS: PHENYLEPHRINE 40 MG in SODIUM CHLORIDE 0.9% 246 ML IV PRN (16:28)
[2019-11-03] VITALS (86 sets, daily range): BP systolic 89–124; BP diastolic 51–73
[2019-11-03] MEDS: BLOOD SUGAR DIAGNOSTIC STRIP TEST SCH ×4 (00:21→16:57)
[2019-11-03] MEDS: INSULIN LISPRO 100 UNITS/ML SUBCUT SCH ×4 (00:26→16:57)
[2019-11-03] MEDS: PIPERACILLIN/TAZOBACTAM 2.25 G in DEXTROSE 5% WATER 50 ML IV SCH ×3 (00:35→16:58)
[2019-11-03] MEDS: IPRATROPIUM/ALBUTEROL 0.5-3(2.5)MG/3ML NEB HHN SCH ×4 (02:19→20:27)
[2019-11-03 05:36] LABS: HEMATOCRIT. 23.9 % (42.0-52.0); HEMOGLOBIN. 8.1 g/dL (14.0-18.0); MEAN CORPUSCULAR HEMOGLOBIN 30.9 pg (28.0-32.0); MEAN CORPUSCULAR VOLUME 91.3 fL (80.0-94.0); MEAN PLATELET VOLUME 8.9 fl (7.4-10.4); PLATELET 214 x1000/uL (130-400); RED BLOOD CELL COUNT 2.61 mill/uL (4.7-6.1); RED CELL DISTRIBUTION WIDTH 14.9 % (11.6-14.6)
[2019-11-03 05:41] LABS: CHLORIDE 98 mEq/L (98-107)
[2019-11-03 06:09] LABS: 25-HYDROXY VITAMIN D3 48 ng/mL (.)
[2019-11-03] MEDS: MESALAMINE 400 MG CAPSULE.DR PO SCH ×3 (06:39→21:24)
[2019-11-03] MEDS: PROPOFOL 10MG/ML 100ML 100 ML IV PRN ×2 (06:41→21:21)
[2019-11-03 07:16] LABS: PLATELET ESTIMATE NORMAL
[2019-11-03 08:58] LABS: BG BASE EXCESS -4.3 mmol/L (-2.0-2.0); BG CARBOXYHEMOGLOBIN 0.3 % (0.5-1.5); BG DEOXYHEMOGLOBIN 3.4 % (0.0-5.0); BG FRACTION INSPIRED OXYGEN 50; BG HCO3 ACT 19.1 mmol/L (22.0-26.0); BG METHEMOGLOBIN 0.3 % (0.0-1.5); BG OXYGEN SATURATION 96.6 % (92.0-98.5); BG PCO2 28.2 mmHg (35.0-45.0); BG PH 7.449 (7.350-7.450); BG PO2 99.3 mmHg (75.0-100.0); BG SAMPLE SITE LEFT BRACHIAL; BG TIDAL VOLUME(mL) 500 mL; BG TOTAL HEMOGLOBIN 7.3 g/dL (12.0-18.0); BG VENT MODE VENT - A/C; BG VENT RATE 14 set
[2019-11-03] MEDS: LACTOBACILLUS GG CAPSULE PO SCH (09:04)
[2019-11-03] MEDS: PANTOPRAZOLE SODIUM 40 MG/VIAL IV SCH (09:04)
[2019-11-03] MEDS: FLUDROCORTISONE ACETATE 0.1MG TABLET PO SCH (09:05)
[2019-11-03] MEDS: MIDODRINE HCL 5MG TABLET PO SCH ×3 (09:15→16:59)
[2019-11-03] MEDS: PHENYLEPHRINE 40 MG in SODIUM CHLORIDE 0.9% 246 ML IV PRN (09:23)
[2019-11-03] MEDS: EPOETIN ALFA 4000UNITS/ML VIAL SUBCUT SCH (21:23)
[2019-11-04] VITALS (89 sets, daily range): BP systolic 90–149; BP diastolic 50–88
[2019-11-04] MEDS: PIPERACILLIN/TAZOBACTAM 2.25 G in DEXTROSE 5% WATER 50 ML IV SCH ×3 (00:54→16:29)
[2019-11-04] MEDS: MESALAMINE 400 MG CAPSULE.DR PO SCH ×3 (05:26→21:04)
[2019-11-04] MEDS: PROPOFOL 10MG/ML 100ML 100 ML IV PRN ×2 (05:59→15:56)
[2019-11-04] MEDS: BLOOD SUGAR DIAGNOSTIC STRIP TEST SCH ×4 (06:00→16:40)
[2019-11-04] MEDS: INSULIN LISPRO 100 UNITS/ML SUBCUT SCH ×4 (06:00→16:40)
[2019-11-04 06:05] LABS: PHOSPHORUS 5.3 mg/dL (2.5-4.9)
[2019-11-04] MEDS: IPRATROPIUM/ALBUTEROL 0.5-3(2.5)MG/3ML NEB HHN SCH ×3 (08:10→20:45)
[2019-11-04] MEDS: LACTOBACILLUS GG CAPSULE PO SCH (08:12)
[2019-11-04] MEDS: PANTOPRAZOLE SODIUM 40 MG/VIAL IV SCH (08:12)
[2019-11-04] MEDS: FLUDROCORTISONE ACETATE 0.1MG TABLET PO SCH (08:13)
[2019-11-04] MEDS: MIDODRINE HCL 5MG TABLET PO SCH ×3 (08:13→16:29)
[2019-11-04] MEDS: PHENYLEPHRINE 40 MG in SODIUM CHLORIDE 0.9% 246 ML IV PRN (08:14)
[2019-11-04 08:35] LABS: HEMATOCRIT. 22.7 % (42.0-52.0); HEMOGLOBIN. 7.5 g/dL (14.0-18.0); MEAN CORPUSCULAR HEMOGLOBIN 29.8 pg (28.0-32.0); MEAN CORPUSCULAR VOLUME 90.5 fL (80.0-94.0); MEAN PLATELET VOLUME 9.6 fl (7.4-10.4); PLATELET 181 x1000/uL (130-400); RED BLOOD CELL COUNT 2.51 mill/uL (4.7-6.1)
[2019-11-04 08:44] LABS: BG BASE EXCESS -3.3 mmol/L (-2.0-2.0); BG CARBOXYHEMOGLOBIN 0.4 % (0.5-1.5); BG DEOXYHEMOGLOBIN 2.6 % (0.0-5.0); BG FRACTION INSPIRED OXYGEN 50; BG HCO3 ACT 21.1 mmol/L (22.0-26.0); BG METHEMOGLOBIN 0.3 % (0.0-1.5); BG OXYGEN SATURATION 97.4 % (92.0-98.5); BG OXYHEMOGLOBIN 96.7 % (94.0-97.0); BG PCO2 34.9 mmHg (35.0-45.0); BG SAMPLE SITE LEFT BRACHIAL; BG TIDAL VOLUME(mL) 500 mL; BG TOTAL HEMOGLOBIN 7.4 g/dL (12.0-18.0); BG VENT MODE VENT - A/C; BG VENT RATE 14 set
[2019-11-04 09:50] LABS: PLATELET ESTIMATE NORMAL
[2019-11-04] MEDS: FENTANYL CITRATE/PF 500 MCG in SODIUM CHLORIDE 0.9% 40 ML IV PRN ×2 (12:44→19:02)
[2019-11-04] MEDS: METOCLOPRAMIDE HCL 10MG/2ML VIAL IV SCH (17:35)
[2019-11-04] MEDS: LEVETIRACETAM 500MG/5ML CUP NG SCH (20:40)
[2019-11-04] MEDS: DEXT 5%/0.45% NACL 1000ML 1,000 ML IV SCH (20:41)
[2019-11-05] VITALS (86 sets, daily range): BP systolic 68–135; BP diastolic 36–84
[2019-11-05] MEDS: PIPERACILLIN/TAZOBACTAM 2.25 G in DEXTROSE 5% WATER 50 ML IV SCH ×2 (00:14→09:06)
[2019-11-05] MEDS: METOCLOPRAMIDE HCL 10MG/2ML VIAL IV SCH ×4 (00:15→17:21)
[2019-11-05] MEDS: BLOOD SUGAR DIAGNOSTIC STRIP TEST SCH ×4 (00:26→18:06)
[2019-11-05] MEDS: FENTANYL CITRATE/PF 500 MCG in SODIUM CHLORIDE 0.9% 40 ML IV PRN ×4 (00:54→20:49)
[2019-11-05] MEDS: PROPOFOL 10MG/ML 100ML 100 ML IV PRN ×2 (01:33→17:21)
[2019-11-05] MEDS: IPRATROPIUM/ALBUTEROL 0.5-3(2.5)MG/3ML NEB HHN SCH ×6 (02:08→23:39)
[2019-11-05] MEDS: PHENYLEPHRINE 40 MG in SODIUM CHLORIDE 0.9% 246 ML IV PRN ×2 (02:48→20:23)
[2019-11-05] MEDS: INSULIN LISPRO 100 UNITS/ML SUBCUT SCH ×4 (06:00→18:00)
[2019-11-05] MEDS: MESALAMINE 400 MG CAPSULE.DR PO SCH ×3 (06:01→21:32)
[2019-11-05 06:58] LABS: HEMATOCRIT. 22.2 % (42.0-52.0); HEMOGLOBIN. 7.2 g/dL (14.0-18.0); MEAN CORPUSCULAR HEMOGLOBIN 29.8 pg (28.0-32.0); MEAN CORPUSCULAR VOLUME 91.3 fL (80.0-94.0); MEAN PLATELET VOLUME 9.4 fl (7.4-10.4); PLATELET 148 x1000/uL (130-400); RED BLOOD CELL COUNT 2.43 mill/uL (4.7-6.1); RED CELL DISTRIBUTION WIDTH 15.2 % (11.6-14.6)
[2019-11-05 08:37] LABS: BG BASE EXCESS -0.3 mmol/L (-2.0-2.0); BG CARBOXYHEMOGLOBIN 0.8 % (0.5-1.5); BG DEOXYHEMOGLOBIN 4.1 % (0.0-5.0); BG FRACTION INSPIRED OXYGEN 40; BG HCO3 ACT 25.2 mmol/L (22.0-26.0); BG METHEMOGLOBIN 0.5 % (0.0-1.5); BG OXYGEN SATURATION 95.8 % (92.0-98.5); BG OXYHEMOGLOBIN 94.6 % (94.0-97.0); BG PCO2 45.8 mmHg (35.0-45.0); BG PH 7.359 (7.350-7.450); BG PO2 91.1 mmHg (75.0-100.0); BG SAMPLE SITE LEFT BRACHIAL; BG TIDAL VOLUME(mL) 500 mL; BG TOTAL HEMOGLOBIN 7.5 g/dL (12.0-18.0); BG VENT MODE VENT - A/C; BG VENT RATE 14 set
[2019-11-05] MEDS: FLUDROCORTISONE ACETATE 0.1MG TABLET PO SCH (09:06)
[2019-11-05] MEDS: LACTOBACILLUS GG CAPSULE PO SCH (09:06)
[2019-11-05] MEDS: PANTOPRAZOLE SODIUM 40 MG/VIAL IV SCH (09:06)
[2019-11-05] MEDS: MIDODRINE HCL 5MG TABLET PO SCH ×3 (09:06→17:22)
[2019-11-05] MEDS: LEVETIRACETAM 500MG/5ML CUP NG SCH ×2 (09:07→21:32)
[2019-11-05 10:37] LABS: PLATELET ESTIMATE NORMAL
[2019-11-05] MEDS ORDERED: MEROPENEM 1,000 MG in SODIUM CHLORIDE 0.9% 100 ML IV SCH (11:00)
[2019-11-05] MEDS: MEROPENEM 500MG in NORMAL SALINE 50ML IV SCH ×2 (14:12→21:32)
[2019-11-05] MEDS: ACETYLCYSTEINE 100MG/ML 10% VIAL 4ML INH SCH ×2 (16:08→23:39)
[2019-11-05] MEDS: DEXT 5%/0.45% NACL 1000ML 1,000 ML IV SCH (20:30)
[2019-11-05] MEDS ORDERED: FENTANYL CITRATE/PF 1,000 MCG in SODIUM CHLORIDE 0.9% 80 ML IV PRN (20:41)
[2019-11-05] MEDS: EPOETIN ALFA 4000UNITS/ML VIAL SUBCUT SCH (21:32)
[2019-11-06] VITALS (81 sets, daily range): BP systolic 74–130; BP diastolic 45–82
[2019-11-06] MEDS: BLOOD SUGAR DIAGNOSTIC STRIP TEST SCH ×4 (00:47→17:32)
[2019-11-06] MEDS: METOCLOPRAMIDE HCL 10MG/2ML VIAL IV SCH ×4 (00:48→17:32)
[2019-11-06] MEDS: PROPOFOL 10MG/ML 100ML 100 ML IV PRN ×2 (01:51→21:06)
[2019-11-06] MEDS: FENTANYL CITRATE/PF 1,000 MCG in SODIUM CHLORIDE 0.9% 80 ML IV PRN ×2 (02:27→15:05)
[2019-11-06] MEDS: MESALAMINE 400 MG CAPSULE.DR PO SCH ×3 (05:27→20:56)
[2019-11-06] MEDS: INSULIN LISPRO 100 UNITS/ML SUBCUT SCH ×4 (06:00→17:32)
[2019-11-06 06:39] LABS: BASOPHILS % 0.5 % (0.0-2.0); EOSINOPHILS % 1.7 % (0.0-5.0); HEMATOCRIT. 22.6 % (42.0-52.0); HEMOGLOBIN. 7.4 g/dL (14.0-18.0); LYMPHOCYTES % 9.2 % (20.0-50.0); MEAN CORPUSCULAR HEMOGLOBIN 30.3 pg (28.0-32.0); MEAN CORPUSCULAR VOLUME 92.1 fL (80.0-94.0); MEAN PLATELET VOLUME 9.8 fl (7.4-10.4); MONOCYTES % 9.1 % (2.0-8.0); NEUTROPHILS % 79.5 % (40.0-76.0); PLATELET 147 x1000/uL (130-400); RED BLOOD CELL COUNT 2.45 mill/uL (4.7-6.1); RED CELL DISTRIBUTION WIDTH 15.6 % (11.6-14.6)
[2019-11-06 06:53] LABS: PHOSPHORUS 4.5 mg/dL (2.5-4.9)
[2019-11-06] MEDS: IPRATROPIUM/ALBUTEROL 0.5-3(2.5)MG/3ML NEB HHN SCH ×4 (08:39→20:28)
[2019-11-06] MEDS: ACETYLCYSTEINE 100MG/ML 10% VIAL 4ML INH SCH ×2 (08:39→16:00)
[2019-11-06] MEDS: MEROPENEM 500MG in NORMAL SALINE 50ML IV SCH ×2 (09:00→20:56)
[2019-11-06] MEDS: LEVETIRACETAM 500MG/5ML CUP NG SCH ×2 (09:14→20:56)
[2019-11-06] MEDS: FLUDROCORTISONE ACETATE 0.1MG TABLET PO SCH (09:15)
[2019-11-06] MEDS: MIDODRINE HCL 5MG TABLET PO SCH ×3 (09:17→17:32)
[2019-11-06] MEDS: LACTOBACILLUS GG CAPSULE PO SCH (09:17)
[2019-11-06] MEDS: PANTOPRAZOLE SODIUM 40 MG/VIAL IV SCH (09:18)
[2019-11-06] MEDS: PHENYLEPHRINE 40 MG in SODIUM CHLORIDE 0.9% 246 ML IV PRN (09:19)
[2019-11-06 11:25] LABS: BG BASE EXCESS 0.5 mmol/L (-2.0-2.0); BG CARBOXYHEMOGLOBIN 0.3 % (0.5-1.5); BG DEOXYHEMOGLOBIN 6.7 % (0.0-5.0); BG FRACTION INSPIRED OXYGEN 40; BG HCO3 ACT 26.3 mmol/L (22.0-26.0); BG METHEMOGLOBIN 0.3 % (0.0-1.5); BG OXYGEN SATURATION 93.3 % (92.0-98.5); BG OXYHEMOGLOBIN 92.7 % (94.0-97.0); BG PCO2 48.7 mmHg (35.0-45.0); BG PH 7.351 (7.350-7.450); BG PO2 75.7 mmHg (75.0-100.0); BG SAMPLE SITE LEFT BRACHIAL; BG TIDAL VOLUME(mL) 500 mL; BG TOTAL HEMOGLOBIN 8.2 g/dL (12.0-18.0); BG VENT MODE VENT - A/C; BG VENT RATE 14 set
[2019-11-07] VITALS (83 sets, daily range): BP systolic 88–141; BP diastolic 42–79
[2019-11-07] MEDS: IPRATROPIUM/ALBUTEROL 0.5-3(2.5)MG/3ML NEB HHN SCH ×7 (00:29→23:54)
[2019-11-07] MEDS: ACETYLCYSTEINE 100MG/ML 10% VIAL 4ML INH SCH ×3 (00:29→16:19)
[2019-11-07] MEDS: METOCLOPRAMIDE HCL 10MG/2ML VIAL IV SCH ×5 (01:36→23:10)
[2019-11-07] MEDS: INSULIN LISPRO 100 UNITS/ML SUBCUT SCH ×5 (01:37→23:26)
[2019-11-07 05:31] LABS: BASOPHILS % 0.6 % (0.0-2.0); HEMATOCRIT. 22.9 % (42.0-52.0); HEMOGLOBIN. 7.5 g/dL (14.0-18.0); LYMPHOCYTES % 8.1 % (20.0-50.0); MEAN CORPUSCULAR HEMOGLOBIN 30.2 pg (28.0-32.0); MEAN CORPUSCULAR VOLUME 91.9 fL (80.0-94.0); MEAN PLATELET VOLUME 9.2 fl (7.4-10.4); MONOCYTES % 8.2 % (2.0-8.0); NEUTROPHILS % 80.1 % (40.0-76.0); PLATELET 170 x1000/uL (130-400); RED CELL DISTRIBUTION WIDTH 15.8 % (11.6-14.6)
[2019-11-07 05:52] LABS: PHOSPHORUS 3.2 mg/dL (2.5-4.9)
[2019-11-07] MEDS: PHENYLEPHRINE 40 MG in SODIUM CHLORIDE 0.9% 246 ML IV PRN (05:54)
[2019-11-07] MEDS: BLOOD SUGAR DIAGNOSTIC STRIP TEST SCH ×5 (05:54→23:26)
[2019-11-07] MEDS: MESALAMINE 400 MG CAPSULE.DR PO SCH ×3 (05:54→21:16)
[2019-11-07] MEDS: PROPOFOL 10MG/ML 100ML 100 ML IV PRN ×4 (05:55→23:11)
[2019-11-07] MEDS: FLUDROCORTISONE ACETATE 0.1MG TABLET PO SCH (09:27)
[2019-11-07] MEDS: LEVETIRACETAM 500MG/5ML CUP NG SCH ×2 (09:27→21:15)
[2019-11-07] MEDS: LACTOBACILLUS GG CAPSULE PO SCH (09:27)
[2019-11-07] MEDS: MEROPENEM 500MG in NORMAL SALINE 50ML IV SCH ×2 (09:27→21:15)
[2019-11-07] MEDS: PANTOPRAZOLE SODIUM 40 MG/VIAL IV SCH (09:28)
[2019-11-07] MEDS: MIDODRINE HCL 5MG TABLET PO SCH ×3 (09:28→17:12)
[2019-11-07 09:43] LABS: BG BASE EXCESS -1.6 mmol/L (-2.0-2.0); BG DEOXYHEMOGLOBIN 0.9 % (0.0-5.0); BG FRACTION INSPIRED OXYGEN 40; BG HCO3 ACT 23.4 mmol/L (22.0-26.0); BG METHEMOGLOBIN 0.1 % (0.0-1.5); BG OXYGEN SATURATION 99.1 % (92.0-98.5); BG PCO2 40.3 mmHg (35.0-45.0); BG PH 7.381 (7.350-7.450); BG PO2 127.4 mmHg (75.0-100.0); BG SAMPLE SITE LEFT BRACHIAL; BG TIDAL VOLUME(mL) 500 mL; BG TOTAL HEMOGLOBIN 6.7 g/dL (12.0-18.0); BG VENT MODE VENT - A/C; BG VENT RATE 14 set
[2019-11-07] MEDS: FENTANYL CITRATE/PF 1,000 MCG in SODIUM CHLORIDE 0.9% 80 ML IV PRN (13:18)
[2019-11-08] VITALS (35 sets, daily range): BP systolic 93–169; BP diastolic 56–102
[2019-11-08] MEDS: ACETYLCYSTEINE 100MG/ML 10% VIAL 4ML INH SCH ×3 (00:08→16:31)
[2019-11-08] MEDS: IPRATROPIUM/ALBUTEROL 0.5-3(2.5)MG/3ML NEB HHN SCH ×5 (04:02→20:21)
[2019-11-08] MEDS: METOCLOPRAMIDE HCL 10MG/2ML VIAL IV SCH ×2 (05:21→11:04)
[2019-11-08] MEDS: MESALAMINE 400 MG CAPSULE.DR PO SCH ×3 (05:21→21:59)
[2019-11-08] MEDS: INSULIN LISPRO 100 UNITS/ML SUBCUT SCH ×3 (05:22→17:37)
[2019-11-08] MEDS: BLOOD SUGAR DIAGNOSTIC STRIP TEST SCH ×3 (05:23→18:10)
[2019-11-08 05:32] LABS: BASOPHILS % 0.7 % (0.0-2.0); EOSINOPHILS % 2.4 % (0.0-5.0); LYMPHOCYTES % 13.5 % (20.0-50.0); MEAN CORPUSCULAR HEMOGLOBIN 29.1 pg (28.0-32.0); MEAN PLATELET VOLUME 8.4 fl (7.4-10.4); MONOCYTES % 9.3 % (2.0-8.0); NEUTROPHILS % 74.1 % (40.0-76.0); PLATELET 114 x1000/uL (130-400); RED BLOOD CELL COUNT 2.19 mill/uL (4.7-6.1); RED CELL DISTRIBUTION WIDTH 15.5 % (11.6-14.6)
[2019-11-08 05:59] LABS: PHOSPHORUS 2.7 mg/dL (2.5-4.9)
[2019-11-08] MEDS: PROPOFOL 10MG/ML 100ML 100 ML IV PRN ×3 (06:23→15:47)
[2019-11-08 06:46] LABS: HEMATOCRIT. 20.2 % (42.0-52.0); HEMOGLOBIN. 6.4 g/dL (14.0-18.0)
[2019-11-08] MEDS: LACTOBACILLUS GG CAPSULE PO SCH (08:16)
[2019-11-08] MEDS: MIDODRINE HCL 5MG TABLET PO SCH ×3 (08:16→16:37)
[2019-11-08] MEDS: LEVETIRACETAM 500MG/5ML CUP NG SCH ×2 (08:16→21:59)
[2019-11-08] MEDS: FLUDROCORTISONE ACETATE 0.1MG TABLET PO SCH (08:16)
[2019-11-08] MEDS: PANTOPRAZOLE SODIUM 40 MG/VIAL IV SCH (08:16)
[2019-11-08] MEDS: MEROPENEM 500MG in NORMAL SALINE 50ML IV SCH ×2 (08:18→21:59)
[2019-11-08] MEDS: FENTANYL CITRATE/PF 1,000 MCG in SODIUM CHLORIDE 0.9% 80 ML IV PRN (08:19)
[2019-11-08 08:54] LABS: BG BASE EXCESS -4.5 mmol/L (-2.0-2.0); BG CARBOXYHEMOGLOBIN 0.9 % (0.5-1.5); BG DEOXYHEMOGLOBIN 3.1 % (0.0-5.0); BG FRACTION INSPIRED OXYGEN 40; BG HCO3 ACT 20.5 mmol/L (22.0-26.0); BG METHEMOGLOBIN 0.6 % (0.0-1.5); BG OXYGEN SATURATION 96.9 % (92.0-98.5); BG OXYHEMOGLOBIN 95.4 % (94.0-97.0); BG PCO2 36.9 mmHg (35.0-45.0); BG PH 7.363 (7.350-7.450); BG PO2 104.2 mmHg (75.0-100.0); BG SAMPLE SITE LEFT BRACHIAL; BG TIDAL VOLUME(mL) 500 mL; BG TOTAL HEMOGLOBIN 6.5 g/dL (12.0-18.0); BG VENT MODE VENT - A/C; BG VENT RATE 14 set
[2019-11-08 16:08] LABS: HEMATOCRIT 26.3 % (42.0-52.0); HEMOGLOBIN 8.6 g/dL (14.0-18.0)
[2019-11-08] MEDS: ACETAMINOPHEN 650MG/20.3ML UDC PO PRN (17:36)
[2019-11-08] MEDS: EPOETIN ALFA 10000UNITS/ML VIAL SUBCUT SCH (21:59)
[2019-11-09] VITALS (52 sets, daily range): BP systolic 90–160; BP diastolic 52–99
[2019-11-09] MEDS: ACETYLCYSTEINE 100MG/ML 10% VIAL 4ML INH SCH ×3 (00:08→16:40)
[2019-11-09] MEDS: IPRATROPIUM/ALBUTEROL 0.5-3(2.5)MG/3ML NEB HHN SCH ×6 (00:08→20:26)
[2019-11-09] MEDS: INSULIN LISPRO 100 UNITS/ML SUBCUT SCH ×4 (00:16→18:16)
[2019-11-09] MEDS: BLOOD SUGAR DIAGNOSTIC STRIP TEST SCH ×4 (00:16→17:22)
[2019-11-09] MEDS: PROPOFOL 10MG/ML 100ML 100 ML IV PRN ×5 (04:43→23:24)
[2019-11-09] MEDS: MESALAMINE 400 MG CAPSULE.DR PO SCH ×3 (05:45→21:19)
[2019-11-09 06:24] LABS: BASOPHILS % 1.6 % (0.0-2.0); EOSINOPHILS % 3.6 % (0.0-5.0); HEMOGLOBIN. 8.3 g/dL (14.0-18.0); LYMPHOCYTES % 10.8 % (20.0-50.0); MEAN CORPUSCULAR VOLUME 90.9 fL (80.0-94.0); MONOCYTES % 8.7 % (2.0-8.0); NEUTROPHILS % 75.3 % (40.0-76.0); RED BLOOD CELL COUNT 2.75 mill/uL (4.7-6.1); RED CELL DISTRIBUTION WIDTH 16.1 % (11.6-14.6)
[2019-11-09 06:41] LABS: PHOSPHORUS 3.4 mg/dL (2.5-4.9)
[2019-11-09] MEDS: FENTANYL CITRATE/PF 1,000 MCG in SODIUM CHLORIDE 0.9% 80 ML IV PRN ×2 (07:39→23:57)
[2019-11-09] MEDS: PANTOPRAZOLE SODIUM 40 MG/VIAL IV SCH ×2 (09:00→18:48)
[2019-11-09] MEDS: MIDODRINE HCL 5MG TABLET PO SCH ×4 (09:00→17:22)
[2019-11-09] MEDS: PHENYLEPHRINE 40 MG in SODIUM CHLORIDE 0.9% 246 ML IV PRN (10:07)
[2019-11-09] MEDS: MEROPENEM 500MG in NORMAL SALINE 50ML IV SCH ×2 (13:25→21:18)
[2019-11-09] MEDS: LEVETIRACETAM 500MG/5ML CUP NG SCH ×2 (13:25→21:18)
[2019-11-09] MEDS: FLUDROCORTISONE ACETATE 0.1MG TABLET PO SCH (13:26)
[2019-11-09] MEDS: LACTOBACILLUS GG CAPSULE PO SCH (13:26)
[2019-11-09] MEDS: QUETIAPINE FUMARATE 25MG TABLET PO SCH (23:00)
[2019-11-10] VITALS (47 sets, daily range): BP systolic 83–145; BP diastolic 34–93
[2019-11-10] MEDS: IPRATROPIUM/ALBUTEROL 0.5-3(2.5)MG/3ML NEB HHN SCH ×6 (00:17→20:54)
[2019-11-10] MEDS: ACETYLCYSTEINE 100MG/ML 10% VIAL 4ML INH SCH ×2 (00:17→08:50)
[2019-11-10] MEDS: MESALAMINE 400 MG CAPSULE.DR PO SCH ×3 (05:45→21:23)
[2019-11-10] MEDS: PROPOFOL 10MG/ML 100ML 100 ML IV PRN (05:47)
[2019-11-10] MEDS: BLOOD SUGAR DIAGNOSTIC STRIP TEST SCH ×4 (05:48→17:29)
[2019-11-10] MEDS: INSULIN LISPRO 100 UNITS/ML SUBCUT SCH ×4 (05:48→17:29)
[2019-11-10 06:13] LABS: BASOPHILS % 0.9 % (0.0-2.0); EOSINOPHILS % 3.9 % (0.0-5.0); HEMATOCRIT. 24.7 % (42.0-52.0); HEMOGLOBIN. 8.1 g/dL (14.0-18.0); LYMPHOCYTES % 15.6 % (20.0-50.0); MEAN CORPUSCULAR HEMOGLOBIN 29.8 pg (28.0-32.0); MEAN CORPUSCULAR VOLUME 90.9 fL (80.0-94.0); MEAN PLATELET VOLUME 9.6 fl (7.4-10.4); MONOCYTES % 9.1 % (2.0-8.0); NEUTROPHILS % 70.5 % (40.0-76.0); PLATELET 126 x1000/uL (130-400); RED BLOOD CELL COUNT 2.72 mill/uL (4.7-6.1); RED CELL DISTRIBUTION WIDTH 15.8 % (11.6-14.6)
[2019-11-10] MEDS ORDERED: PANTOPRAZOLE SODIUM 40 MG/VIAL IV SCH ×2 (09:00)
[2019-11-10] MEDS: MIDODRINE HCL 5MG TABLET PO SCH ×3 (09:41→17:29)
[2019-11-10] MEDS: LACTOBACILLUS GG CAPSULE PO SCH (09:41)
[2019-11-10] MEDS: MEROPENEM 500MG in NORMAL SALINE 50ML IV SCH (09:41)
[2019-11-10] MEDS: LEVETIRACETAM 500MG/5ML CUP NG SCH ×2 (09:41→21:22)
[2019-11-10] MEDS: QUETIAPINE FUMARATE 25MG TABLET PO SCH ×2 (09:41→21:22)
[2019-11-10] MEDS: FLUDROCORTISONE ACETATE 0.1MG TABLET PO SCH (09:41)
[2019-11-10] MEDS: INSULIN GLARGINE UD 100 UNITS/ML SYR SUBCUT SCH (10:39)
[2019-11-10] MEDS: PANTOPRAZOLE SODIUM 40 MG/VIAL IV SCH (17:28)
[2019-11-10 17:38] LABS: BG BASE EXCESS -1.5 mmol/L (-2.0-2.0); BG CARBOXYHEMOGLOBIN 0.5 % (0.5-1.5); BG DEOXYHEMOGLOBIN 5.9 % (0.0-5.0); BG FRACTION INSPIRED OXYGEN 36; BG HCO3 ACT 24.4 mmol/L (22.0-26.0); BG METHEMOGLOBIN 0.4 % (0.0-1.5); BG OXYHEMOGLOBIN 93.2 % (94.0-97.0); BG PCO2 47.2 mmHg (35.0-45.0); BG PH 7.331 (7.350-7.450); BG PO2 76.9 mmHg (75.0-100.0); BG SAMPLE SITE LEFT RADIAL; BG VENT MODE NASAL CANNULA
[2019-11-10] MEDS: ACETAMINOPHEN 650MG/20.3ML UDC PO PRN (21:22)
[2019-11-10] MEDS: MEROPENEM 500 MG in SODIUM CHLORIDE 0.9% 50 ML IV SCH (21:22)
[2019-11-10] MEDS: EPOETIN ALFA 10000UNITS/ML VIAL SUBCUT SCH (21:24)
[2019-11-11] VITALS (50 sets, daily range): BP systolic 83–147; BP diastolic 44–82
[2019-11-11] MEDS: IPRATROPIUM/ALBUTEROL 0.5-3(2.5)MG/3ML NEB HHN SCH ×4 (00:03→20:20)
[2019-11-11] MEDS: BLOOD SUGAR DIAGNOSTIC STRIP TEST SCH ×5 (00:09→21:00)
[2019-11-11 05:45] LABS: HEMATOCRIT. 22.8 % (42.0-52.0); HEMOGLOBIN. 7.5 g/dL (14.0-18.0); MEAN CORPUSCULAR HEMOGLOBIN 29.7 pg (28.0-32.0); MEAN CORPUSCULAR VOLUME 90.4 fL (80.0-94.0); MEAN PLATELET VOLUME 8.9 fl (7.4-10.4); PLATELET 197 x1000/uL (130-400); RED BLOOD CELL COUNT 2.53 mill/uL (4.7-6.1); RED CELL DISTRIBUTION WIDTH 15.6 % (11.6-14.6)
[2019-11-11] MEDS: INSULIN LISPRO 100 UNITS/ML SUBCUT SCH ×5 (05:53→21:00)
[2019-11-11 06:01] LABS: PHOSPHORUS 4.8 mg/dL (2.5-4.9)
[2019-11-11] MEDS: MESALAMINE 400 MG CAPSULE.DR PO SCH ×3 (06:21→21:42)
[2019-11-11] MEDS: MEROPENEM 500 MG in SODIUM CHLORIDE 0.9% 50 ML IV SCH ×2 (09:13→20:32)
[2019-11-11] MEDS: QUETIAPINE FUMARATE 25MG TABLET PO SCH ×2 (09:13→20:33)
[2019-11-11] MEDS: LACTOBACILLUS GG CAPSULE PO SCH (09:13)
[2019-11-11] MEDS: INSULIN GLARGINE UD 100 UNITS/ML SYR SUBCUT SCH (09:14)
[2019-11-11] MEDS: LEVETIRACETAM 500MG/5ML CUP NG SCH ×2 (09:14→20:38)
[2019-11-11] MEDS: FLUDROCORTISONE ACETATE 0.1MG TABLET PO SCH (09:14)
[2019-11-11] MEDS: MIDODRINE HCL 5MG TABLET PO SCH ×3 (09:14→18:03)
[2019-11-11 09:54] LABS: PLATELET ESTIMATE NORMAL
[2019-11-11] MEDS: PHENYLEPHRINE 40 MG in SODIUM CHLORIDE 0.9% 246 ML IV PRN (15:07)
[2019-11-11] MEDS: PANTOPRAZOLE SODIUM 40 MG/VIAL IV SCH (18:02)
[2019-11-12] VITALS (49 sets, daily range): BP systolic 75–179; BP diastolic 37–114
[2019-11-12] MEDS: IPRATROPIUM/ALBUTEROL 0.5-3(2.5)MG/3ML NEB HHN SCH ×4 (00:30→12:24)
[2019-11-12] MEDS: LORAZEPAM 2MG/ML CPJ IV PRN ×2 (03:39→20:29)
[2019-11-12] MEDS: MESALAMINE 400 MG CAPSULE.DR PO SCH ×3 (05:14→23:59)
[2019-11-12] MEDS: INSULIN LISPRO 100 UNITS/ML SUBCUT SCH ×4 (07:50→21:00)
[2019-11-12] MEDS: BLOOD SUGAR DIAGNOSTIC STRIP TEST SCH ×4 (08:22→21:00)
[2019-11-12] MEDS: LEVETIRACETAM 500MG/5ML CUP NG SCH ×2 (08:29→21:10)
[2019-11-12] MEDS: RISPERIDONE 0.5MG TABLET PO SCH ×2 (08:30→17:00)
[2019-11-12] MEDS: MEROPENEM 500 MG in SODIUM CHLORIDE 0.9% 50 ML IV SCH ×2 (08:30→21:09)
[2019-11-12] MEDS: MIDODRINE HCL 5MG TABLET PO SCH ×3 (08:30→17:00)
[2019-11-12] MEDS: FLUDROCORTISONE ACETATE 0.1MG TABLET PO SCH (08:30)
[2019-11-12] MEDS: QUETIAPINE FUMARATE 25MG TABLET PO SCH (08:30)
[2019-11-12] MEDS: LACTOBACILLUS GG CAPSULE PO SCH (08:30)
[2019-11-12] MEDS ORDERED: DOPAMINE 400MG/250ML PREMIX 250 ML IV PRN (10:45)
[2019-11-12 13:09] LABS: BASOPHILS % 0.5 % (0.0-2.0); HEMATOCRIT. 22.7 % (42.0-52.0); HEMOGLOBIN. 7.5 g/dL (14.0-18.0); LYMPHOCYTES % 7.5 % (20.0-50.0); MEAN CORPUSCULAR HEMOGLOBIN 29.4 pg (28.0-32.0); MEAN CORPUSCULAR VOLUME 88.9 fL (80.0-94.0); MEAN PLATELET VOLUME 9.3 fl (7.4-10.4); MONOCYTES % 7.6 % (2.0-8.0); NEUTROPHILS % 83.4 % (40.0-76.0); PLATELET 199 x1000/uL (130-400); RED BLOOD CELL COUNT 2.56 mill/uL (4.7-6.1); RED CELL DISTRIBUTION WIDTH 15.5 % (11.6-14.6)
[2019-11-12 13:42] LABS: CHLORIDE 103 mEq/L (98-107)
[2019-11-12] MEDS ORDERED: IOHEXOL-300 100 ML BOTTLE ONE (15:59)
[2019-11-12] MEDS ORDERED: LIDOCAINE HCL 1% 20ML VIAL (Pyxis) INJ ONE (16:45)
[2019-11-12] MEDS ORDERED: ROCURONIUM BROMIDE 10MG/ML VIAL 5ML IV ONE ×2 (17:26→19:14)
[2019-11-12] MEDS ORDERED: SODIUM CHLORIDE 0.9% 10ML VIAL ONE ×2 (17:27→17:34)
[2019-11-12] MEDS ORDERED: CEFAZOLIN SODIUM 1000MG/VIAL ONE (17:27)
[2019-11-12] MEDS ORDERED: EPHEDRINE SULFATE 50MG/ML VIAL ONE (17:34)
[2019-11-12] MEDS ORDERED: PHENYLEPHRINE HCL 10 MG/ML 1ML (IV VIAL) IV ONE (17:34)
[2019-11-12] MEDS ORDERED: MIDAZOLAM HCL 2 MG/2 ML VIAL ONE ×2 (17:46→19:17)
[2019-11-12] MEDS ORDERED: PROPOFOL 200MG/20ML VIAL IV ONE (17:46)
[2019-11-12] MEDS ORDERED: CEFAZOLIN 1000MG PREMIX 50 ML IV ONE (18:05)
[2019-11-12] MEDS ORDERED: GENTAMICIN SULF 40MG/ML 2ML VIAL ONE (19:19)
[2019-11-12] MEDS ORDERED: HYDROCODONE/ACETAMINOPHEN 5/325MG TABLET PO PRN (19:45)
[2019-11-12] MEDS: PROPOFOL 10MG/ML 100ML 100 ML IV PRN (21:08)
[2019-11-12] MEDS: FAMOTIDINE 20MG TABLET PO SCH (21:11)
[2019-11-12] MEDS: EPOETIN ALFA 10000UNITS/ML VIAL SUBCUT SCH (21:42)
[2019-11-13] VITALS (103 sets, daily range): BP systolic 79–156; BP diastolic 40–94
[2019-11-13] MEDS: PROPOFOL 10MG/ML 100ML 100 ML IV PRN ×3 (04:40→21:04)
[2019-11-13 06:10] LABS: BASOPHILS % 0.8 % (0.0-2.0); HEMATOCRIT. 23.7 % (42.0-52.0); HEMOGLOBIN. 7.8 g/dL (14.0-18.0); LYMPHOCYTES % 10.2 % (20.0-50.0); MEAN CORPUSCULAR HEMOGLOBIN 29.6 pg (28.0-32.0); MEAN CORPUSCULAR VOLUME 89.7 fL (80.0-94.0); MEAN PLATELET VOLUME 9.2 fl (7.4-10.4); MONOCYTES % 9.6 % (2.0-8.0); NEUTROPHILS % 76.4 % (40.0-76.0); PLATELET 227 x1000/uL (130-400); RED BLOOD CELL COUNT 2.64 mill/uL (4.7-6.1); RED CELL DISTRIBUTION WIDTH 15.7 % (11.6-14.6)
[2019-11-13] MEDS: MESALAMINE 400 MG CAPSULE.DR PO SCH ×3 (06:35→21:05)
[2019-11-13 06:37] LABS: PHOSPHORUS 6.1 mg/dL (2.5-4.9)
[2019-11-13] MEDS: INSULIN LISPRO 100 UNITS/ML SUBCUT SCH ×4 (07:50→21:00)
[2019-11-13] MEDS: BLOOD SUGAR DIAGNOSTIC STRIP TEST SCH ×4 (07:50→21:26)
[2019-11-13] MEDS: IPRATROPIUM/ALBUTEROL 0.5-3(2.5)MG/3ML NEB HHN SCH ×5 (08:09→21:28)
[2019-11-13] MEDS: MEROPENEM 500 MG in SODIUM CHLORIDE 0.9% 50 ML IV SCH ×2 (08:49→21:05)
[2019-11-13] MEDS: FLUDROCORTISONE ACETATE 0.1MG TABLET PO SCH (08:50)
[2019-11-13] MEDS: LACTOBACILLUS GG CAPSULE PO SCH (08:50)
[2019-11-13] MEDS: MIDODRINE HCL 5MG TABLET PO SCH ×3 (08:51→17:58)
[2019-11-13] MEDS: LEVETIRACETAM 500MG/5ML CUP NG SCH ×2 (08:53→21:06)
[2019-11-13] MEDS: RISPERIDONE 0.5MG TABLET PO SCH ×3 (08:56→21:00)
[2019-11-13 18:25] LABS: BG BASE EXCESS -0.2 mmol/L (-2.0-2.0); BG CARBOXYHEMOGLOBIN 0.3 % (0.5-1.5); BG DEOXYHEMOGLOBIN 2.6 % (0.0-5.0); BG HCO3 ACT 24.3 mmol/L (22.0-26.0); BG METHEMOGLOBIN 0.3 % (0.0-1.5); BG OXYGEN SATURATION 97.4 % (92.0-98.5); BG OXYHEMOGLOBIN 96.8 % (94.0-97.0); BG PH 7.413 (7.350-7.450); BG PO2 121.7 mmHg (75.0-100.0); BG SAMPLE SITE A-LINE; BG TIDAL VOLUME(mL) 500 mL; BG TOTAL HEMOGLOBIN 8.2 g/dL (12.0-18.0); BG VENT MODE VENT - SIMV; BG VENT RATE 14 set
[2019-11-13] MEDS: FAMOTIDINE 20MG TABLET PO SCH (21:00)
[2019-11-13] MEDS: LORAZEPAM 2MG/ML CPJ IV PRN (21:00)
[2019-11-13] MEDS ORDERED: PROPOFOL 10MG/ML 100ML 100 ML IV PRN (22:00)
[2019-11-14] VITALS (75 sets, daily range): BP systolic 95–200; BP diastolic 44–114
[2019-11-14] MEDS: IPRATROPIUM/ALBUTEROL 0.5-3(2.5)MG/3ML NEB HHN SCH ×5 (00:40→15:38)
[2019-11-14] MEDS: BLOOD SUGAR DIAGNOSTIC STRIP TEST SCH ×4 (05:28→21:47)
[2019-11-14] MEDS: MESALAMINE 400 MG CAPSULE.DR PO SCH ×3 (05:28→21:54)
[2019-11-14] MEDS: INSULIN LISPRO 100 UNITS/ML SUBCUT SCH ×4 (05:29→21:00)
[2019-11-14 06:38] LABS: EOSINOPHILS % 5.4 % (0.0-5.0); HEMATOCRIT. 25.2 % (42.0-52.0); HEMOGLOBIN. 8.2 g/dL (14.0-18.0); LYMPHOCYTES % 10.9 % (20.0-50.0); MEAN CORPUSCULAR HEMOGLOBIN 29.2 pg (28.0-32.0); MEAN CORPUSCULAR VOLUME 89.6 fL (80.0-94.0); MEAN PLATELET VOLUME 8.5 fl (7.4-10.4); MONOCYTES % 7.4 % (2.0-8.0); NEUTROPHILS % 75.3 % (40.0-76.0); PLATELET 298 x1000/uL (130-400); RED BLOOD CELL COUNT 2.82 mill/uL (4.7-6.1); RED CELL DISTRIBUTION WIDTH 15.4 % (11.6-14.6)
[2019-11-14] MEDS: MEROPENEM 500 MG in SODIUM CHLORIDE 0.9% 50 ML IV SCH ×2 (08:52→21:53)
[2019-11-14] MEDS: LORAZEPAM 2MG/ML CPJ IV PRN (08:52)
[2019-11-14] MEDS: FLUDROCORTISONE ACETATE 0.1MG TABLET PO SCH (08:53)
[2019-11-14] MEDS: MIDODRINE HCL 5MG TABLET PO SCH ×3 (08:53→17:19)
[2019-11-14] MEDS: LACTOBACILLUS GG CAPSULE PO SCH (08:53)
[2019-11-14] MEDS: RISPERIDONE 0.5MG TABLET PO SCH ×2 (08:53→17:19)
[2019-11-14] MEDS: LEVETIRACETAM 500MG/5ML CUP NG SCH ×2 (08:54→21:53)
[2019-11-14 09:29] LABS: BG BASE EXCESS -1.7 mmol/L (-2.0-2.0); BG CARBOXYHEMOGLOBIN 0.3 % (0.5-1.5); BG DEOXYHEMOGLOBIN 1.5 % (0.0-5.0); BG FRACTION INSPIRED OXYGEN 50; BG HCO3 ACT 22.4 mmol/L (22.0-26.0); BG METHEMOGLOBIN 0.1 % (0.0-1.5); BG OXYGEN SATURATION 98.5 % (92.0-98.5); BG OXYHEMOGLOBIN 98.1 % (94.0-97.0); BG PCO2 34.7 mmHg (35.0-45.0); BG PH 7.427 (7.350-7.450); BG PRESSURE SUPPORT 10; BG SAMPLE SITE A-LINE; BG TIDAL VOLUME(mL) 500 mL; BG TOTAL HEMOGLOBIN 7.5 g/dL (12.0-18.0); BG VENT MODE VENT - SIMV; BG VENT RATE 12 set
[2019-11-14] MEDS: MIDAZOLAM HCL 50 MG in DEXTROSE 5% WATER 40 ML IV PRN (14:58)
[2019-11-14] MEDS: FENTANYL CITRATE/PF 500 MCG in SODIUM CHLORIDE 0.9% 40 ML IV PRN (14:59)
[2019-11-14] MEDS: FAMOTIDINE 20MG TABLET PO SCH (21:54)
[2019-11-15] VITALS (90 sets, daily range): BP systolic -8–212; BP diastolic -9–120
[2019-11-15] MEDS: FENTANYL CITRATE/PF 500 MCG in SODIUM CHLORIDE 0.9% 40 ML IV PRN (03:15)
[2019-11-15] MEDS: MIDAZOLAM HCL 50 MG in DEXTROSE 5% WATER 40 ML IV PRN (03:16)
[2019-11-15] MEDS: IPRATROPIUM/ALBUTEROL 0.5-3(2.5)MG/3ML NEB HHN SCH ×5 (03:51→20:45)
[2019-11-15] MEDS: MESALAMINE 400 MG CAPSULE.DR PO SCH ×3 (06:00→21:08)
[2019-11-15 07:14] LABS: BASOPHILS % 1.2 % (0.0-2.0); EOSINOPHILS % 6.1 % (0.0-5.0); HEMATOCRIT. 22.9 % (42.0-52.0); HEMOGLOBIN. 7.5 g/dL (14.0-18.0); LYMPHOCYTES % 12.7 % (20.0-50.0); MEAN CORPUSCULAR HEMOGLOBIN 29.2 pg (28.0-32.0); MEAN CORPUSCULAR VOLUME 89.2 fL (80.0-94.0); MEAN PLATELET VOLUME 8.8 fl (7.4-10.4); MONOCYTES % 6.5 % (2.0-8.0); NEUTROPHILS % 73.5 % (40.0-76.0); PLATELET 278 x1000/uL (130-400); RED BLOOD CELL COUNT 2.57 mill/uL (4.7-6.1); RED CELL DISTRIBUTION WIDTH 15.1 % (11.6-14.6)
[2019-11-15] MEDS: INSULIN LISPRO 100 UNITS/ML SUBCUT SCH ×4 (07:50→20:34)
[2019-11-15] MEDS: BLOOD SUGAR DIAGNOSTIC STRIP TEST SCH ×4 (08:35→20:34)
[2019-11-15] MEDS: MIDODRINE HCL 5MG TABLET PO SCH ×3 (08:36→17:42)
[2019-11-15] MEDS: LACTOBACILLUS GG CAPSULE PO SCH (08:36)
[2019-11-15] MEDS: MEROPENEM 500 MG in SODIUM CHLORIDE 0.9% 50 ML IV SCH ×2 (08:37→21:07)
[2019-11-15] MEDS: ACETAMINOPHEN 650MG/20.3ML UDC PO PRN (08:37)
[2019-11-15] MEDS: LEVETIRACETAM 500MG/5ML CUP NG SCH ×2 (08:37→21:07)
[2019-11-15] MEDS: RISPERIDONE 0.5MG TABLET PO SCH ×2 (08:37→17:43)
[2019-11-15] MEDS: FLUDROCORTISONE ACETATE 0.1MG TABLET PO SCH (08:37)
[2019-11-15] MEDS: PHENYLEPHRINE 40 MG in SODIUM CHLORIDE 0.9% 246 ML IV PRN (08:38)
[2019-11-15 09:26] LABS: BG BASE EXCESS -3.3 mmol/L (-2.0-2.0); BG CARBOXYHEMOGLOBIN 0.3 % (0.5-1.5); BG DEOXYHEMOGLOBIN 1.6 % (0.0-5.0); BG FRACTION INSPIRED OXYGEN 50; BG HCO3 ACT 21.6 mmol/L (22.0-26.0); BG METHEMOGLOBIN 0.1 % (0.0-1.5); BG OXYGEN SATURATION 98.4 % (92.0-98.5); BG PCO2 37.9 mmHg (35.0-45.0); BG PH 7.373 (7.350-7.450); BG PO2 179.9 mmHg (75.0-100.0); BG SAMPLE SITE A-LINE; BG TIDAL VOLUME(mL) 500 mL; BG TOTAL HEMOGLOBIN 7.4 g/dL (12.0-18.0); BG VENT MODE VENT - A/C; BG VENT RATE 12 set
[2019-11-15] MEDS ORDERED: POTASSIUM CHLORIDE 20MEQ TABLET SR PO NR (09:30)
[2019-11-15] MEDS: FAMOTIDINE 20MG TABLET PO SCH (21:07)
[2019-11-16] VITALS (60 sets, daily range): BP systolic 97–157; BP diastolic 53–93
[2019-11-16] MEDS: IPRATROPIUM/ALBUTEROL 0.5-3(2.5)MG/3ML NEB HHN SCH ×6 (00:05→20:18)
[2019-11-16] MEDS: MESALAMINE 400 MG CAPSULE.DR PO SCH ×3 (06:00→20:53)
[2019-11-16 06:29] LABS: BASOPHILS % 1.5 % (0.0-2.0); EOSINOPHILS % 4.8 % (0.0-5.0); HEMATOCRIT. 22.2 % (42.0-52.0); HEMOGLOBIN. 7.5 g/dL (14.0-18.0); LYMPHOCYTES % 10.5 % (20.0-50.0); MEAN CORPUSCULAR HEMOGLOBIN 29.9 pg (28.0-32.0); MEAN CORPUSCULAR VOLUME 88.8 fL (80.0-94.0); MEAN PLATELET VOLUME 8.8 fl (7.4-10.4); NEUTROPHILS % 77.2 % (40.0-76.0); PLATELET 245 x1000/uL (130-400); RED CELL DISTRIBUTION WIDTH 15.1 % (11.6-14.6)
[2019-11-16 06:56] LABS: PHOSPHORUS 6.4 mg/dL (2.5-4.9)
[2019-11-16] MEDS: INSULIN LISPRO 100 UNITS/ML SUBCUT SCH ×4 (07:50→20:45)
[2019-11-16] MEDS: BLOOD SUGAR DIAGNOSTIC STRIP TEST SCH ×4 (07:50→20:45)
[2019-11-16] MEDS: FLUDROCORTISONE ACETATE 0.1MG TABLET PO SCH (08:15)
[2019-11-16] MEDS: MIDODRINE HCL 5MG TABLET PO SCH ×3 (08:15→17:27)
[2019-11-16] MEDS: RISPERIDONE 0.5MG TABLET PO SCH ×2 (08:15→17:26)
[2019-11-16] MEDS: LEVETIRACETAM 500MG/5ML CUP NG SCH ×2 (08:15→20:53)
[2019-11-16] MEDS: LACTOBACILLUS GG CAPSULE PO SCH (08:15)
[2019-11-16] MEDS: CALCIUM ACETATE 667MG CAPSULE PO SCH ×2 (13:20→17:28)
[2019-11-16] MEDS: FAMOTIDINE 20MG TABLET PO SCH (20:53)
[2019-11-17] VITALS (18 sets, daily range): BP systolic 13–152; BP diastolic 68–97
[2019-11-17] MEDS: IPRATROPIUM/ALBUTEROL 0.5-3(2.5)MG/3ML NEB HHN SCH ×6 (00:19→20:47)
[2019-11-17] MEDS: BLOOD SUGAR DIAGNOSTIC STRIP TEST SCH ×4 (07:30→20:38)
[2019-11-17] MEDS: INSULIN LISPRO 100 UNITS/ML SUBCUT SCH ×4 (07:30→20:38)
[2019-11-17] MEDS: LACTOBACILLUS GG CAPSULE PO SCH (08:48)
[2019-11-17] MEDS: FLUDROCORTISONE ACETATE 0.1MG TABLET PO SCH (08:48)
[2019-11-17] MEDS: MIDODRINE HCL 5MG TABLET PO SCH ×3 (08:49→17:56)
[2019-11-17] MEDS: RISPERIDONE 0.5MG TABLET PO SCH (08:49)
[2019-11-17] MEDS: LEVETIRACETAM 500MG/5ML CUP NG SCH ×2 (08:50→20:38)
[2019-11-17] MEDS: CALCIUM ACETATE 667MG CAPSULE PO SCH ×3 (08:54→17:56)
[2019-11-17] MEDS: MESALAMINE 400 MG CAPSULE.DR PO SCH ×2 (14:11→22:57)
[2019-11-17] MEDS: FAMOTIDINE 20MG TABLET PO SCH (20:38)
[2019-11-17] MEDS ORDERED: MEROPENEM 500 MG in SODIUM CHLORIDE 0.9% 50 ML IV SCH (21:00)
== END 2019-11-17 23:15 | DRG 853 ==
LOC: ER 12:22 → CVICU 16:16 → ENRESERV 18:43 → 3WST 10-29 11:22 → CVICU 11-01 17:24 → 5EST 11-17 02:10
PROVIDERS: ADMIT Internal Medicine; ATTEND Internal Medicine
PROC: 05HY33Z Insertion of Infusion Device into Upper Vein, Percutaneous Approach (ICD-10-PCS; 2019-10-20)
PROC: B544ZZA Ultrasonography of Left Jugular Veins, Guidance (ICD-10-PCS; 2019-10-20)
PROC: 5A1D70Z Performance of Urinary Filtration, Intermittent, Less than 6 Hours Per Day (ICD-10-PCS; 2019-10-20)
PROC: 5A1D70Z Performance of Urinary Filtration, Intermittent, Less than 6 Hours Per Day (ICD-10-PCS; 2019-10-21)
PROC: 5A1D70Z Performance of Urinary Filtration, Intermittent, Less than 6 Hours Per Day (ICD-10-PCS; 2019-10-22)
PROC: 5A1D70Z Performance of Urinary Filtration, Intermittent, Less than 6 Hours Per Day (ICD-10-PCS; 2019-10-25)
PROC: 4A00X4Z Measurement of Central Nervous Electrical Activity, External Approach (ICD-10-PCS; 2019-10-26)
PROC: 5A1D70Z Performance of Urinary Filtration, Intermittent, Less than 6 Hours Per Day (ICD-10-PCS; 2019-10-27)
PROC: 5A1D70Z Performance of Urinary Filtration, Intermittent, Less than 6 Hours Per Day (ICD-10-PCS; 2019-10-29)
PROC: 5A1955Z Respiratory Ventilation, Greater than 96 Consecutive Hours (ICD-10-PCS; principal; 2019-11-01)
PROC: 0BH17EZ Insertion of Endotracheal Airway into Trachea, Via Natural or Artificial Opening (ICD-10-PCS; 2019-11-01)
PROC: 5A12012 Performance of Cardiac Output, Single, Manual (ICD-10-PCS; 2019-11-01)
PROC: 5A1D70Z Performance of Urinary Filtration, Intermittent, Less than 6 Hours Per Day (ICD-10-PCS; 2019-11-01)
PROC: 5A1D70Z Performance of Urinary Filtration, Intermittent, Less than 6 Hours Per Day (ICD-10-PCS; 2019-11-02)
PROC: 5A1D70Z Performance of Urinary Filtration, Intermittent, Less than 6 Hours Per Day (ICD-10-PCS; 2019-11-03)
PROC: 5A1D70Z Performance of Urinary Filtration, Intermittent, Less than 6 Hours Per Day (ICD-10-PCS; 2019-11-04)
PROC: 5A1D70Z Performance of Urinary Filtration, Intermittent, Less than 6 Hours Per Day (ICD-10-PCS; 2019-11-05)
PROC: 5A1D70Z Performance of Urinary Filtration, Intermittent, Less than 6 Hours Per Day (ICD-10-PCS; 2019-11-07)
PROC: 30233N1 Transfusion of Nonautologous Red Blood Cells into Peripheral Vein, Percutaneous Approach (ICD-10-PCS; 2019-11-08)
PROC: 5A1D70Z Performance of Urinary Filtration, Intermittent, Less than 6 Hours Per Day (ICD-10-PCS; 2019-11-08)
PROC: 5A1D70Z Performance of Urinary Filtration, Intermittent, Less than 6 Hours Per Day (ICD-10-PCS; 2019-11-10)
PROC: 0JH606Z Insertion of Pacemaker, Dual Chamber into Chest Subcutaneous Tissue and Fascia, Open Approach (ICD-10-PCS; 2019-11-12)
PROC: 02H63JZ Insertion of Pacemaker Lead into Right Atrium, Percutaneous Approach (ICD-10-PCS; 2019-11-12)
PROC: 02HK3JZ Insertion of Pacemaker Lead into Right Ventricle, Percutaneous Approach (ICD-10-PCS; 2019-11-12)
PROC: 5A1D70Z Performance of Urinary Filtration, Intermittent, Less than 6 Hours Per Day (ICD-10-PCS; 2019-11-12)
PROC: 03HY32Z Insertion of Monitoring Device into Upper Artery, Percutaneous Approach (ICD-10-PCS; 2019-11-12)
PROC: 4A133B1 Monitoring of Arterial Pressure, Peripheral, Percutaneous Approach (ICD-10-PCS; 2019-11-12)
PROC: 4A133J1 Monitoring of Arterial Pulse, Peripheral, Percutaneous Approach (ICD-10-PCS; 2019-11-12)
PROC: 5A1D70Z Performance of Urinary Filtration, Intermittent, Less than 6 Hours Per Day (ICD-10-PCS; 2019-11-16)
PROC: 5A1D70Z Performance of Urinary Filtration, Intermittent, Less than 6 Hours Per Day (ICD-10-PCS; 2019-11-17)
DX: A41.9 Sepsis, unspecified organism (principal); N18.6 End stage renal disease; R57.1 Hypovolemic shock; R65.21 Severe sepsis with septic shock; J96.01 Acute respiratory failure with hypoxia; J69.0 Pneumonitis due to inhalation of food and vomit; I46.9 Cardiac arrest, cause unspecified; J15.0 Pneumonia due to Klebsiella pneumoniae; E87.1 Hypo-osmolality and hyponatremia; D62 Acute posthemorrhagic anemia; E87.2 Acidosis; G93.40 Encephalopathy, unspecified; R18.8 Other ascites; E46 Unspecified protein-calorie malnutrition; K50.10 Crohn's disease of large intestine without complications; E11.42 Type 2 diabetes mellitus with diabetic polyneuropathy; E11.65 Type 2 diabetes mellitus with hyperglycemia; G40.909 Epilepsy, unspecified, not intractable, without status epilepticus; K52.9 Noninfective gastroenteritis and colitis, unspecified; I95.1 Orthostatic hypotension; D63.8 Anemia in other chronic diseases classified elsewhere; E11.22 Type 2 diabetes mellitus with diabetic chronic kidney disease; D69.6 Thrombocytopenia, unspecified; G54.6 Phantom limb syndrome with pain; K31.84 Gastroparesis; I49.5 Sick sinus syndrome; E11.43 Type 2 diabetes mellitus with diabetic autonomic (poly)neuropathy; G90.8 Other disorders of autonomic nervous system; E21.1 Secondary hyperparathyroidism, not elsewhere classified; E11.51 Type 2 diabetes mellitus with diabetic peripheral angiopathy without gangrene; R26.9 Unspecified abnormalities of gait and mobility; F32.9 Major depressive disorder, single episode, unspecified; Z20.828 Contact with and (suspected) exposure to other viral communicable diseases; R13.10 Dysphagia, unspecified; Z99.2 Dependence on renal dialysis; Z79.899 Other long term (current) drug therapy; Z79.4 Long term (current) use of insulin; Z90.49 Acquired absence of other specified parts of digestive tract; Z89.611 Acquired absence of right leg above knee; Z78.1 Physical restraint status; Z87.01 Personal history of pneumonia (recurrent); Z89.511 Acquired absence of right leg below knee; Z91.81 History of falling
CPT/HCPCS: 33208; 36415; 36556; 36600; 36620; 70551; 71045; 71250; 74018; 74176; 75820; 76705; 80048; 80053; 80202; 80307; 80320; 82270; 82306; 82375; 82533; 82542; 82550; 82553; 82607; 82728; 82746; 82805; 82962; 83036; 83540; 83550; 83605; 83615; 83735; 83880; 84100; 84145; 84443; 84478; 84484; 85014; 85018; 85025; 85027; 85044; 85379; 86140; 86850; 86900; 86920; 87015; 87045; 87070; 87077; 87106; 87186; 87427; 87449; 87493; 87635; 89055; 92523; 92610; 93005; 93306; 94002; 94003; 94640; 96365; 96367; 97110; 97116; 97162; 97164; 97166; 97168; 97530; 97535; 99291; C1785; C1893; C1898; C9113; J0690; J0885; J1580; J1644; J1815; J1953; J2060; J2185; J2250; J2270; J2370; J2405; J2543; J2704; J2765; J3010; J3370; J3490; J7030; J7040; J7050; J7060; J7608; P9016; Q0163; Q9967; G0480

== ENCOUNTER 2020-12-09 07:00 | Inpatient (IN) | payer MEDICARE, MEDICAID ==
[~2020-12-09] VITALS: Ht 152.4 cm; Wt 45.8 kg
[~2020-12-09 07:00] MED LIST changes: +GABA-529 MT; -KETO5DRO80 LEFTEYE; -MIDO5TAB4 PO; +NEPA1.7D RIGHTEYE; -PRED5DRO22 LEFTEYE; +SYSOS BOTHEYE
[2020-12-09 08:10] LABS: HEMATOCRIT. 22.8 % (42.0-52.0); HEMOGLOBIN. 7.6 g/dL (14.0-18.0); MEAN CORPUSCULAR HEMOGLOBIN 31.8 pg (28.0-32.0); MEAN CORPUSCULAR VOLUME 95.1 fL (80.0-94.0); MEAN PLATELET VOLUME 9.2 fl (7.4-10.4); PLATELET 118 x1000/uL (130-400); RED CELL DISTRIBUTION WIDTH 13.6 % (11.6-14.6)
[2020-12-09] MEDS ORDERED: LEVETIRACETAM 1000MG PREMIX 100 ML IV ONE (08:15)
[2020-12-09 08:16] LABS: CHLORIDE 97 mEq/L (98-107)
[2020-12-09 08:22] LABS: INR 1.3; PROTHROMBIN TIME 13.6 sec (9.6-11.0)
[2020-12-09] MEDS ORDERED: SODIUM CHLORIDE 0.9% 500 ML IV ONE (09:30)
[2020-12-09] MEDS ORDERED: PIPERACILLIN/TAZ 3.375G PREMIX 50 ML IV ONE (09:30)
[2020-12-09] MEDS ORDERED: VANCOMYCIN 1 G PREMIX 200 ML IV ONE (09:30)
[2020-12-09 10:23] LABS: PLATELET ESTIMATE SLIGHTLY DECREASED
[2020-12-09] MEDS ORDERED: NOREPINEPHRINE 8MG/250ML PMX 250 ML IV STA (13:27)
[2020-12-09] MEDS: CALCIUM ACETATE 667MG CAPSULE PO SCH (18:20)
[2020-12-09] MEDS: MIDODRINE HCL 5MG TABLET PO SCH (18:21)
[2020-12-09] MEDS ORDERED: LEVETIRACETAM 500MG TABLET PO SCH (21:00)
[2020-12-09] MEDS: EPOETIN ALFA-EPBX 4,000 UNIT/ML VIAL SUBCUT SCH (22:10)
[2020-12-09 23:40] VITALS: BP 118/67
[2020-12-09 23:42] VITALS: BP 104/68
[2020-12-09 23:45] VITALS: BP_SYST 104; BP_SYST 114; BP_DIAS 66; BP_DIAS 68
[2020-12-10] VITALS (104 sets, daily range): BP systolic 68–144; BP diastolic 37–81
[2020-12-10] MEDS ORDERED: PIPERACILLIN/TAZOBACTAM 3.375 G in DEXTROSE 5% WATER 50 ML IV SCH
[2020-12-10] MEDS ORDERED: CLONIDINE 0.1MG TABLET PO PRN
[2020-12-10] MEDS ORDERED: IPRATROPIUM/ALBUTEROL 0.5-3(2.5)MG/3ML NEB HHN PRN
[2020-12-10] MEDS ORDERED: DEXTROSE 50% WATER 50ML SYRINGE IV PRN
[2020-12-10] MEDS ORDERED: DOCUSATE SODIUM 100MG CAPSULE PO PRN
[2020-12-10] MEDS ORDERED: PHENYLEPHRINE 100 MG in DEXT 5% WATER 240 ML IV PRN
[2020-12-10] MEDS ORDERED: HYDROCODONE/ACETAMINOPHEN 5/325MG TABLET PO PRN
[2020-12-10] MEDS ORDERED: ONDANSETRON HCL 4MG/2ML INJ IV PRN
[2020-12-10] MEDS ORDERED: MAGNESIUM/ALUMINUM HYDROXIDE/SIMETHICONE 30ML UDC PO PRN
[2020-12-10] MEDS ORDERED: ACETAMINOPHEN 325MG TABLET PO PRN
[2020-12-10] MEDS ORDERED: MIDO10TA MT (00:35)
[2020-12-10] MEDS ORDERED: NOREPINEPHRINE 32 MG in DEXT 5% WATER 218 ML IV PRN (02:45)
[2020-12-10] MEDS: PIPERACILLIN/TAZOBACTAM 2.25 G in DEXTROSE 5% WATER 50 ML IV SCH ×2 (03:12→17:00)
[2020-12-10 06:21] LABS: HEMATOCRIT. 30.8 % (42.0-52.0); HEMOGLOBIN. 10.1 g/dL (14.0-18.0); MEAN CORPUSCULAR HEMOGLOBIN 30.5 pg (28.0-32.0); MEAN CORPUSCULAR VOLUME 92.9 fL (80.0-94.0); MEAN PLATELET VOLUME 9.1 fl (7.4-10.4); PLATELET 170 x1000/uL (130-400); RED BLOOD CELL COUNT 3.31 mill/uL (4.7-6.1); RED CELL DISTRIBUTION WIDTH 13.9 % (11.6-14.6)
[2020-12-10 06:35] LABS: CHLORIDE 95 mEq/L (98-107)
[2020-12-10 06:47] LABS: PHOSPHORUS 4.3 mg/dL (2.5-4.9)
[2020-12-10 06:48] LABS: LDL CHOLESTEROL 14 mg/dL (5-100)
[2020-12-10 06:51] LABS: HDL CHOLESTEROL 13 mg/dL (40-59)
[2020-12-10 06:59] LABS: TOTAL IRON BINDING CAPACITY 226 ug/dL (250-450)
[2020-12-10] MEDS: CALCIUM ACETATE 667MG CAPSULE PO SCH (07:47)
[2020-12-10] MEDS: BLOOD SUGAR DIAGNOSTIC STRIP TEST SCH ×4 (07:47→21:00)
[2020-12-10] MEDS: INSULIN LISPRO 100 UNITS/ML SUBCUT SCH ×4 (07:47→21:00)
[2020-12-10] MEDS: FOLIC ACID/VITAMIN B COMP W-C TABLET PO SCH (08:01)
[2020-12-10] MEDS: MIDODRINE HCL 5MG TABLET PO SCH ×3 (08:01→16:45)
[2020-12-10] MEDS: PANTOPRAZOLE SODIUM 40 MG/VIAL IV SCH (09:34)
[2020-12-10] MEDS: LEVETIRACETAM 500MG PREMIX 100 ML IV SCH ×2 (09:35→23:15)
[2020-12-10] MEDS ORDERED: MORPHINE SULFATE 2 MG/ML CPJ (NOT FOR IM USE) IV PRN (09:45)
[2020-12-10 10:04] LABS: PLATELET ESTIMATE NORMAL
[2020-12-10] MEDS ORDERED: NOREPINEPHRINE 32 MG in SODIUM CHLORIDE 0.9% 218 ML IV PRN (11:06)
[2020-12-10] MEDS ORDERED: PHENYLEPHRINE 100 MG in SODIUM CHLORIDE 0.9% 240 ML IV PRN (11:30)
[2020-12-10] MEDS: DEXT 5%/0.9% NACL 1,000 ML IV SCH (12:05)
[2020-12-10] MEDS: PHENYLEPHRINE 100 MG in SODIUM CHLORIDE 0.9% 240 ML IV PRN (23:05)
[2020-12-11] VITALS (99 sets, daily range): BP systolic 64–118; BP diastolic 36–71
[2020-12-11] MEDS: PIPERACILLIN/TAZOBACTAM 2.25 G in DEXTROSE 5% WATER 50 ML IV SCH ×2 (05:18→17:09)
[2020-12-11 06:40] LABS: BASOPHILS % 0.6 % (0.0-2.0); EOSINOPHILS % 2.8 % (0.0-5.0); HEMATOCRIT. 29.6 % (42.0-52.0); HEMOGLOBIN. 9.9 g/dL (14.0-18.0); LYMPHOCYTES % 7.2 % (20.0-50.0); MEAN CORPUSCULAR HEMOGLOBIN 31.3 pg (28.0-32.0); MEAN CORPUSCULAR VOLUME 93.7 fL (80.0-94.0); MEAN PLATELET VOLUME 8.6 fl (7.4-10.4); MONOCYTES % 11.2 % (2.0-8.0); NEUTROPHILS % 78.2 % (40.0-76.0); PLATELET 172 x1000/uL (130-400); RED BLOOD CELL COUNT 3.16 mill/uL (4.7-6.1); RED CELL DISTRIBUTION WIDTH 14.2 % (11.6-14.6)
[2020-12-11] MEDS: INSULIN LISPRO 100 UNITS/ML SUBCUT SCH ×4 (07:53→20:45)
[2020-12-11] MEDS: BLOOD SUGAR DIAGNOSTIC STRIP TEST SCH ×4 (07:53→20:45)
[2020-12-11] MEDS: MIDODRINE HCL 5MG TABLET PO SCH ×3 (08:03→16:42)
[2020-12-11] MEDS: FOLIC ACID/VITAMIN B COMP W-C TABLET PO SCH (08:03)
[2020-12-11] MEDS: LEVETIRACETAM 500MG PREMIX 100 ML IV SCH ×2 (09:29→20:45)
[2020-12-11] MEDS: PANTOPRAZOLE SODIUM 40 MG/VIAL IV SCH (09:29)
[2020-12-11] MEDS: DEXT 5%/0.9% NACL 1,000 ML IV SCH (13:09)
[2020-12-11] MEDS: PHENYLEPHRINE 100 MG in SODIUM CHLORIDE 0.9% 240 ML IV PRN (17:29)
[2020-12-12] VITALS (102 sets, daily range): BP systolic 63–154; BP diastolic 46–97
[2020-12-12] MEDS: PIPERACILLIN/TAZOBACTAM 2.25 G in DEXTROSE 5% WATER 50 ML IV SCH ×2 (06:01→17:56)
[2020-12-12 06:04] LABS: PHOSPHORUS 6.3 mg/dL (2.5-4.9)
[2020-12-12 06:06] LABS: HEMATOCRIT. 27.6 % (42.0-52.0); HEMOGLOBIN. 8.9 g/dL (14.0-18.0); MEAN CORPUSCULAR HEMOGLOBIN 30.2 pg (28.0-32.0); MEAN CORPUSCULAR VOLUME 93.7 fL (80.0-94.0); MEAN PLATELET VOLUME 8.2 fl (7.4-10.4); PLATELET 166 x1000/uL (130-400); RED BLOOD CELL COUNT 2.94 mill/uL (4.7-6.1); RED CELL DISTRIBUTION WIDTH 14.5 % (11.6-14.6)
[2020-12-12] MEDS: BLOOD SUGAR DIAGNOSTIC STRIP TEST SCH ×4 (07:50→21:55)
[2020-12-12] MEDS: INSULIN LISPRO 100 UNITS/ML SUBCUT SCH ×4 (08:20→21:00)
[2020-12-12 09:07] LABS: PLATELET ESTIMATE NORMAL
[2020-12-12] MEDS: PANTOPRAZOLE SODIUM 40 MG/VIAL IV SCH (09:25)
[2020-12-12] MEDS: MIDODRINE HCL 5MG TABLET PO SCH ×4 (09:26→17:43)
[2020-12-12] MEDS: LEVETIRACETAM 500MG PREMIX 100 ML IV SCH ×2 (09:26→21:55)
[2020-12-12] MEDS: FOLIC ACID/VITAMIN B COMP W-C TABLET PO SCH (09:26)
[2020-12-12] MEDS: DEXT 5%/0.9% NACL 1,000 ML IV SCH (11:27)
[2020-12-12] MEDS: PHENYLEPHRINE 100 MG in SODIUM CHLORIDE 0.9% 240 ML IV PRN (15:13)
[2020-12-12] MEDS ORDERED: VANCOMYCIN 500 MG PREMIX 100 ML IV NR (17:00)
[2020-12-12] MEDS: EPOETIN ALFA-EPBX 4,000 UNIT/ML VIAL SUBCUT SCH (21:54)
[2020-12-13] VITALS (89 sets, daily range): BP systolic 78–147; BP diastolic 29–95
[2020-12-13] MEDS: PIPERACILLIN/TAZOBACTAM 2.25 G in DEXTROSE 5% WATER 50 ML IV SCH ×2 (05:07→17:25)
[2020-12-13 06:07] LABS: HEMATOCRIT. 26.8 % (42.0-52.0); HEMOGLOBIN. 8.7 g/dL (14.0-18.0); MEAN CORPUSCULAR VOLUME 92.8 fL (80.0-94.0); MEAN PLATELET VOLUME 8.1 fl (7.4-10.4); PLATELET 155 x1000/uL (130-400); RED BLOOD CELL COUNT 2.89 mill/uL (4.7-6.1); RED CELL DISTRIBUTION WIDTH 14.2 % (11.6-14.6)
[2020-12-13] MEDS: BLOOD SUGAR DIAGNOSTIC STRIP TEST SCH ×4 (08:46→21:00)
[2020-12-13] MEDS: LEVETIRACETAM 500MG PREMIX 100 ML IV SCH ×2 (08:52→22:19)
[2020-12-13] MEDS: INSULIN LISPRO 100 UNITS/ML SUBCUT SCH ×4 (08:53→21:00)
[2020-12-13] MEDS: MIDODRINE HCL 5MG TABLET PO SCH ×3 (08:53→22:20)
[2020-12-13] MEDS: PANTOPRAZOLE SODIUM 40 MG/VIAL IV SCH (08:53)
[2020-12-13] MEDS: FOLIC ACID/VITAMIN B COMP W-C TABLET PO SCH (08:53)
[2020-12-13 11:47] LABS: PLATELET ESTIMATE NORMAL
[2020-12-13] MEDS: DEXT 5%/0.9% NACL 1,000 ML IV SCH (12:36)
[2020-12-13] MEDS ORDERED: LORAZEPAM 2MG/ML CPJ ONE (17:01)
[2020-12-13] MEDS: PHENYLEPHRINE 100 MG in SODIUM CHLORIDE 0.9% 240 ML IV PRN (20:29)
[2020-12-14] VITALS (86 sets, daily range): BP systolic 63–139; BP diastolic 20–85
[2020-12-14] MEDS: MIDODRINE HCL 5MG TABLET PO SCH ×4 (04:14→22:24)
[2020-12-14] MEDS: PIPERACILLIN/TAZOBACTAM 2.25 G in DEXTROSE 5% WATER 50 ML IV SCH ×2 (04:55→17:12)
[2020-12-14 06:27] LABS: PHOSPHORUS 4.6 mg/dL (2.5-4.9)
[2020-12-14 06:42] LABS: HEMATOCRIT. 27.6 % (42.0-52.0); HEMOGLOBIN. 9.1 g/dL (14.0-18.0); MEAN CORPUSCULAR HEMOGLOBIN 30.5 pg (28.0-32.0); MEAN CORPUSCULAR VOLUME 91.9 fL (80.0-94.0); MEAN PLATELET VOLUME 9.3 fl (7.4-10.4)
[2020-12-14] MEDS: INSULIN LISPRO 100 UNITS/ML SUBCUT SCH ×2 (08:20→17:04)
[2020-12-14] MEDS: BLOOD SUGAR DIAGNOSTIC STRIP TEST SCH ×2 (08:21→17:04)
[2020-12-14] MEDS: PANTOPRAZOLE SODIUM 40 MG/VIAL IV SCH (09:26)
[2020-12-14] MEDS: LEVETIRACETAM 500MG PREMIX 100 ML IV SCH ×2 (09:26→22:23)
[2020-12-14] MEDS: FOLIC ACID/VITAMIN B COMP W-C TABLET PO SCH (09:26)
[2020-12-14 11:53] LABS: ATYPICAL LYMPHOCYTES 1; PLATELET ESTIMATE NORMAL
[2020-12-14 11:56] LABS: PLATELET 114 x1000/uL (130-400)
[2020-12-14] MEDS: NOREPINEPHRINE 32 MG in SODIUM CHLORIDE 0.9% 218 ML IV PRN (14:45)
[2020-12-14] MEDS: FLUDROCORTISONE ACETATE 0.1MG TABLET PO SCH (17:12)
[2020-12-14] MEDS ORDERED: ALBUMIN HUMAN 12.5G/250ML (5%) IV NR (17:15)
[2020-12-14] MEDS ORDERED: HYDROCORTISONE SOD SUCCINATE 100 MG/2 ML VIAL IV NR (19:00)
[2020-12-14] MEDS ORDERED: DEXT 5%/0.9% NACL 1,000 ML IV SCH (19:15)
[2020-12-14 19:16] LABS: BG BASE EXCESS -11.5 mmol/L (-2.0-2.0); BG CARBOXYHEMOGLOBIN 1.3 % (0.5-1.5); BG DEOXYHEMOGLOBIN 11.4 % (0.0-5.0); BG FRACTION INSPIRED OXYGEN 40; BG METHEMOGLOBIN 0.3 % (0.0-1.5); BG OXYGEN SATURATION 88.4 % (92.0-98.5); BG PCO2 71.4 mmHg (35.0-45.0); BG PH 7.043 (7.350-7.450); BG PO2 76.3 mmHg (75.0-100.0); BG SAMPLE SITE LEFT BRACHIAL; BG TOTAL HEMOGLOBIN 9.2 g/dL (12.0-18.0); BG VENT MODE MASK - VENTI
[2020-12-14] MEDS ORDERED: SODIUM BICARBONATE 8.4% 1 MEQ/ML 50ML SYR IV NR (19:30)
[2020-12-14] MEDS: PHENYLEPHRINE 100 MG in SODIUM CHLORIDE 0.9% 240 ML IV PRN (19:31)
[2020-12-14] MEDS: VASOPRESSIN 20 UNIT in SODIUM CHLORIDE 0.9% 99 ML IV PRN (20:19)
[2020-12-14] MEDS ORDERED: SODIUM BICARBONATE 8.4% 1 MEQ/ML 50ML SYR IV ONE (21:00)
[2020-12-14] MEDS ORDERED: DEXTROSE 5% WATER 1,000 ML IV SCH (21:00)
[2020-12-14 21:15] LABS: CHLORIDE 114 mEq/L (98-107)
[2020-12-14 21:20] LABS: HEMATOCRIT. 30.6 % (42.0-52.0); HEMOGLOBIN. 9.6 g/dL (14.0-18.0); MEAN CORPUSCULAR HEMOGLOBIN 31.1 pg (28.0-32.0); MEAN CORPUSCULAR VOLUME 99.3 fL (80.0-94.0); MEAN PLATELET VOLUME 9.1 fl (7.4-10.4); PLATELET 130 x1000/uL (130-400); RED BLOOD CELL COUNT 3.08 mill/uL (4.7-6.1); RED CELL DISTRIBUTION WIDTH 15.4 % (11.6-14.6)
[2020-12-14 22:09] LABS: PLATELET ESTIMATE NORMAL
[2020-12-14] MEDS: EPOETIN ALFA-EPBX 4,000 UNIT/ML VIAL SUBCUT SCH (22:22)
[2020-12-14 22:27] LABS: BG BASE EXCESS -9.8 mmol/L (-2.0-2.0); BG DEOXYHEMOGLOBIN 3.8 % (0.0-5.0); BG FRACTION INSPIRED OXYGEN 60; BG HCO3 ACT 19.3 mmol/L (22.0-26.0); BG METHEMOGLOBIN 0.3 % (0.0-1.5); BG OXYGEN SATURATION 96.1 % (92.0-98.5); BG OXYHEMOGLOBIN 94.9 % (94.0-97.0); BG PCO2 58.4 mmHg (35.0-45.0); BG PH 7.136 (7.350-7.450); BG PO2 108.2 mmHg (75.0-100.0); BG TOTAL HEMOGLOBIN 10.3 g/dL (12.0-18.0); BG VENT MODE MASK - BIPAP
[2020-12-14] MEDS ORDERED: LORAZEPAM 2MG/ML CPJ IM PRN (23:00)
[2020-12-15] VITALS (174 sets, daily range): BP systolic 49–208; BP diastolic 18–125
[2020-12-15] MEDS: MIDODRINE HCL 5MG TABLET PO SCH ×3 (03:00→14:54)
[2020-12-15] MEDS: VASOPRESSIN 20 UNIT in SODIUM CHLORIDE 0.9% 99 ML IV PRN ×2 (03:44→12:17)
[2020-12-15 06:09] LABS: HEMATOCRIT. 30.6 % (42.0-52.0); HEMOGLOBIN. 9.1 g/dL (14.0-18.0); MEAN CORPUSCULAR HEMOGLOBIN 30.2 pg (28.0-32.0); MEAN CORPUSCULAR VOLUME 101.1 fL (80.0-94.0); MEAN PLATELET VOLUME 9.2 fl (7.4-10.4); PLATELET 115 x1000/uL (130-400); RED BLOOD CELL COUNT 3.03 mill/uL (4.7-6.1)
[2020-12-15] MEDS: PIPERACILLIN/TAZOBACTAM 2.25 G in DEXTROSE 5% WATER 50 ML IV SCH (07:25)
[2020-12-15] MEDS: INSULIN LISPRO 100 UNITS/ML SUBCUT SCH (07:50)
[2020-12-15] MEDS: BLOOD SUGAR DIAGNOSTIC STRIP TEST SCH (07:55)
[2020-12-15] MEDS: PHENYLEPHRINE 100 MG in SODIUM CHLORIDE 0.9% 240 ML IV PRN (07:55)
[2020-12-15] MEDS: PANTOPRAZOLE SODIUM 40 MG/VIAL IV SCH (08:03)
[2020-12-15] MEDS: LEVETIRACETAM 500MG PREMIX 100 ML IV SCH (08:03)
[2020-12-15] MEDS: FLUDROCORTISONE ACETATE 0.1MG TABLET PO SCH (08:25)
[2020-12-15] MEDS: FOLIC ACID/VITAMIN B COMP W-C TABLET PO SCH (08:25)
[2020-12-15] MEDS: NOREPINEPHRINE 32 MG in SODIUM CHLORIDE 0.9% 218 ML IV PRN (08:31)
[2020-12-15 09:04] LABS: BG BASE EXCESS -11.7 mmol/L (-2.0-2.0); BG CARBOXYHEMOGLOBIN 1.4 % (0.5-1.5); BG FRACTION INSPIRED OXYGEN 90; BG HCO3 ACT 21.1 mmol/L (22.0-26.0); BG METHEMOGLOBIN 0.3 % (0.0-1.5); BG OXYGEN SATURATION 87.8 % (92.0-98.5); BG OXYHEMOGLOBIN 86.3 % (94.0-97.0); BG PH 6.933 (7.350-7.450); BG SAMPLE SITE LEFT BRACHIAL; BG TOTAL RESPIRATORY RATE 33 b/min; BG VENT MODE MASK - BIPAP
[2020-12-15] MEDS ORDERED: MIDAZOLAM HCL 100 MG in SODIUM CHLORIDE 0.9% 80 ML IV PRN (09:30)
[2020-12-15] MEDS ORDERED: FENTANYL CITRATE/PF 2,500 MCG in SODIUM CHLORIDE 0.9% 200 ML IV PRN (09:30)
[2020-12-15 09:56] LABS: BG BASE EXCESS -16.6 mmol/L (-2.0-2.0); BG CARBOXYHEMOGLOBIN 0.8 % (0.5-1.5); BG DEOXYHEMOGLOBIN 11.3 % (0.0-5.0); BG FRACTION INSPIRED OXYGEN 100; BG HCO3 ACT 14.6 mmol/L (22.0-26.0); BG METHEMOGLOBIN 0.1 % (0.0-1.5); BG OXYGEN SATURATION 88.6 % (92.0-98.5); BG OXYHEMOGLOBIN 87.8 % (94.0-97.0); BG PCO2 65.9 mmHg (35.0-45.0); BG PH 6.963 (7.350-7.450); BG PO2 69.1 mmHg (75.0-100.0); BG SAMPLE SITE LEFT BRACHIAL; BG TOTAL HEMOGLOBIN 8.5 g/dL (12.0-18.0); BG VENT MODE VENT - AC
[2020-12-15] MEDS ORDERED: SODIUM BICARBONATE 8.4% 1 MEQ/ML 50ML SYR IV NR (10:00)
[2020-12-15] MEDS ORDERED: CEFEPIME 1,000 MG in DEXTROSE 5% WATER 50 ML IV SCH (11:00)
[2020-12-15] MEDS ORDERED: DOPAMINE 400MG/250ML PREMIX 250 ML IV PRN (11:15)
[2020-12-15] MEDS ORDERED: SODIUM BICARBONATE 50 MEQ in DEXT 5%/0.2% NACL 1,000 ML IV SCH (12:00)
[2020-12-15] MEDS ORDERED: IPRATROPIUM/ALBUTEROL 0.5-3(2.5)MG/3ML NEB HHN SCH (12:00)
[2020-12-15] MEDS ORDERED: VANCOMYCIN 500 MG PREMIX 100 ML IV NR (12:00)
[2020-12-15] MEDS ORDERED: METRONIDAZOLE 500 MG PREMIX 100 ML IV SCH (12:00)
[2020-12-15] MEDS ORDERED: ALBUMIN HUMAN 12.5G/250ML (5%) IV NR (12:30)
[2020-12-15] MEDS: EPINEPHRINE 10 MG in SODIUM CHLORIDE 0.9% 240 ML IV PRN ×2 (12:40→14:54)
[2020-12-15] MEDS ORDERED: VANCOMYCIN HCL 1000 MG/20 ML ORAL PO SCH (14:00)
[2020-12-15 15:14] LABS: PLATELET ESTIMATE DECREASED
== END 2020-12-15 15:40 | DRG 871 ==
LOC: ER 07:45 → CVICU 10:42 → CANRESERV 14:25 → ENRESERV 14:25 → EDBEDREQSVC 14:57 → EDBEDREQ 19:34 → EDBEDREQTM 19:34 → ENRESERV 22:26
PROVIDERS: ADMIT Family Medicine Adult Medicine; ATTEND Family Medicine Adult Medicine
PROC: 06HY33Z Insertion of Infusion Device into Lower Vein, Percutaneous Approach (ICD-10-PCS; 2020-12-09)
PROC: B54BZZA Ultrasonography of Right Lower Extremity Veins, Guidance (ICD-10-PCS; 2020-12-09)
PROC: 4A10X4Z Monitoring of Central Nervous Electrical Activity, External Approach (ICD-10-PCS; principal; 2020-12-11)
PROC: 5A09357 Assistance with Respiratory Ventilation, Less than 24 Consecutive Hours, Continuous Positive Airway Pressure (ICD-10-PCS; 2020-12-14)
PROC: 5A1D70Z Performance of Urinary Filtration, Intermittent, Less than 6 Hours Per Day (ICD-10-PCS; 2020-12-15)
PROC: 0BH17EZ Insertion of Endotracheal Airway into Trachea, Via Natural or Artificial Opening (ICD-10-PCS; 2020-12-15)
PROC: 5A1935Z Respiratory Ventilation, Less than 24 Consecutive Hours (ICD-10-PCS; 2020-12-15)
DX: A41.51 Sepsis due to Escherichia coli [E. coli] (principal); N18.6 End stage renal disease; R65.21 Severe sepsis with septic shock; J96.02 Acute respiratory failure with hypercapnia; J69.0 Pneumonitis due to inhalation of food and vomit; E87.1 Hypo-osmolality and hyponatremia; G93.40 Encephalopathy, unspecified; I13.2 Hypertensive heart and chronic kidney disease with heart failure and with stage 5 chronic kidney disease, or end stage renal disease; K55.9 Vascular disorder of intestine, unspecified; E87.2 Acidosis; I50.32 Chronic diastolic (congestive) heart failure; D69.6 Thrombocytopenia, unspecified; E11.22 Type 2 diabetes mellitus with diabetic chronic kidney disease; E11.51 Type 2 diabetes mellitus with diabetic peripheral angiopathy without gangrene; G40.909 Epilepsy, unspecified, not intractable, without status epilepticus; D63.8 Anemia in other chronic diseases classified elsewhere; Z66 Do not resuscitate; B19.20 Unspecified viral hepatitis C without hepatic coma; E11.42 Type 2 diabetes mellitus with diabetic polyneuropathy; M54.5 Low back pain; E83.39 Other disorders of phosphorus metabolism; I25.10 Atherosclerotic heart disease of native coronary artery without angina pectoris; Z82.49 Family history of ischemic heart disease and other diseases of the circulatory system; Z83.3 Family history of diabetes mellitus; Z86.74 Personal history of sudden cardiac arrest; Z89.611 Acquired absence of right leg above knee; Z90.49 Acquired absence of other specified parts of digestive tract; Z99.2 Dependence on renal dialysis; Z79.4 Long term (current) use of insulin; Z79.899 Other long term (current) drug therapy; Z89.511 Acquired absence of right leg below knee; K66.8 Other specified disorders of peritoneum
CPT/HCPCS: 36415; 36600; 71045; 74018; 74176; 80048; 80053; 80061; 80202; 82248; 82270; 82375; 82805; 82962; 83036; 83540; 83550; 83605; 83735; 83880; 84100; 84145; 84443; 84484; 85025; 87077; 87186; 93005; 93306; 93970; 94002; 94660; 97162; 97166; 99291; A6261; C9113; J0692; J0885; J1265; J1720; J1815; J1953; J2060; J2270; J2370; J2405; J2543; J3370; J3490; J7030; J7042; J7050; J7060; P9041; A4315